=== PATIENT | female | born 1960 | race Caucasian/White ===

== ENCOUNTER → 2020-08-17 15:37 | Outpatient (BNVA) | payer OTHER, SELFPAY | PROVIDERS: PCP Pediatrics; Referring Provider Pediatrics; Visit Provider Hospitalist | DX: Z76.89 Persons encountering health services in other specified circumstances (principal) ==

== ENCOUNTER → 2021-03-19 15:47 | Outpatient (BNVA) | payer OTHER, SELFPAY | PROVIDERS: PCP Pediatrics; Visit Provider Hospitalist ==

== ENCOUNTER → 2021-09-18 15:33 | Outpatient (BNVA) | payer OTHER, SELFPAY | PROVIDERS: PCP Pediatrics; Visit Provider Hospitalist ==

== ENCOUNTER 2021-11-19 13:17 | Emergency (ER) | payer OTHER, SELFPAY ==
--- NOTE | ~2021-11-19 | CT_ITS ---
EXAMINATION: CT ABDOMEN AND PELVIS WITHOUT CONTRAST CLINICAL INFORMATION: Left flank pain. History of nephrolithiasis. COMPARISON: Renal ultrasound 06/29/[address] abdomen and pelvis 06/09/2020.. TECHNIQUE: Multidetector volumetric imaging was performed from the superior aspect of the liver through the pubic symphysis. Sagittal and coronal reformatted images were obtained on the technologist's workstation. This CT examination was performed using dose optimization techniques as appropriate, variously including the following: *Automated exposure control *Adjustment of mA and/or kV according to patient size (this includes techniques or standardized protocols for targeted exams where dose is matched to indication/reason for exam; i.e. extremities or head) *Use of iterative reconstruction technique DLP: 908 mGy-cm FINDINGS: LUNG BASES: The lung bases are clear. The heart size is normal. LIVER, GALLBLADDER, AND BILIARY TREE: The liver is enlarged in size, normal shape, and attenuation. No focal hepatic lesion or biliary ductal dilatation is present. The gallbladder is unremarkable with no evidence of radiopaque gallstones, gallbladder wall thickening, or obvious pericholecystic inflammatory changes. PANCREAS: Unremarkable. SPLEEN: Unremarkable. ADRENAL GLANDS: Unremarkable. KIDNEYS AND URETERS: The kidneys are normal in size, shape, and attenuation. Tumor radiopaque calculi in midpole and lower pole left kidney and a 3 mm calculi lower pole right kidney without caliectasis or hydronephrosis. BLADDER: The bladder is distended. GASTROINTESTINAL TRACT: There is moderate stool and gas seen throughout the colon without any significant distention. The small bowel loops are normal caliber. Appendix is not visualized. No free air or free fluid seen. ABDOMINAL WALL: No significant hernia is appreciated. LYMPH NODES: Normal. VASCULAR: Unremarkable. PELVIC VISCERA: The uterus is anteverted and appears unremarkable. There is no adnexal mass or free fluid. OSSEOUS STRUCTURES: There are degenerative disc changes and vacuum disc phenomena L4-L5 and L3-L4 disc levels. No lytic or sclerotic process seen. There is mild ventral spondylosis. CT/CT abdomen pelvis wo con IMPRESSION: Bilateral radiopaque renal calculi without caliectasis or hydronephrosis. Distended urinary bladder without any bladder wall thickening or radiopaque calculi. Mild constipation. Mild hepatomegaly Fleischner guidelines were followed.
[2021-11-19 14:11] VITALS: BP 121/64; PULSE 97; RESP 18; TEMP 36.4; O2SAT 100; BMI 36.2
[2021-11-19 14:27] LABS: MANUAL DIFF FLAG NO
[2021-11-19 14:28] LABS: Basophils Percent Auto 0.5 % (0-2); Eosinophils Absolute Auto 0.1 X10*3/uL (0.0-0.4); Eosinophils Percent Auto 0.8 % (0-4); Hematocrit 36.3 % (37.0-47.0); Hemoglobin 11.5 g/dl (12.0-16.0); Imm Gran Abs Auto 0.03 X10*3/uL (0.00-0.03); Imm Gran Pct Auto 0.3 % (0.0-0.4); Lymphocytes Absolute Auto 2.7 X10*3/uL (1.2-4.9); Lymphocytes Percent Auto 30.4 % (20-40); Mean Corpuscular HGB Conc 31.7 g/dl (31.0-35.0); Mean Corpuscular Hemoglobin 27.2 pg (27.0-33.0); Mean Corpuscular Volume 85.8 fL (80.0-98.0); Mean Platelet Volume 9.6 fL (9.4-12.3); Monocytes Absolute Auto 0.7 X10*3/uL (0.1-1.2); Monocytes Percent Auto 7.8 % (2-11); Neutrophils Absolute Auto 5.3 x10*3/uL (2.0-8.3); Neutrophils Percent Auto 60.2 % (45-73); Platelet Count 228 X10*3/uL (160-400); Red Blood Count 4.23 X10*6/uL (4.20-5.50); Red Cell Distribution Width 16.9 % (11.0-16.0); White Blood Count 8.8 X10*3/uL (4.8-10.8)
[2021-11-19 14:48] LABS: Alanine Aminotransferase 27 U/L (0-31); Albumin Level 4.2 g/dL (3.5-5.0); Alkaline Phosphatase 48 U/L (39-117); Anion Gap 11 (12-20); Aspartate Amino Transferase 29 U/L (5-31); Bilirubin Total 0.7 mg/dL (0.0-1.0); Blood Urea Nitrogen 11 mg/dL (9-16); Calcium 9.3 mg/dL (8.4-10.2); Carbon Dioxide 30 mmol/L (22-29); Chloride 102 mmol/L (96-108); Creatinine Clr Calc Pharmacy 95.3; Estimated Glomerular Filt Rate > 60; Glucose Random 113 mg/dL (60-115); Lipase 45 U/L (8-78); Potassium 4.1 mmol/L (3.3-5.1); Sodium 139 mmol/L (135-145); Total Protein 7.3 g/dL (6.5-8.0)
[2021-11-19 16:06] LABS: Appearance Urine CLEAR; Color Urine YELLOW; Glucose Urine UA >=1000 MG/DL (NEG); Leukocyte Esterase Urine NEG (NEG); Nitrite Urine NEG (NEG); PH 6.5 (5.0-8.0); Specific Gravity - Urine <= 1.005 (1.005-1.025); Urine Blood NEG (NEG); Urine Ketones NEG (NEG); Urine Protein NEG (NEG-TRACE)
[2021-11-19 17:56] LABS: RBC Urine 0 /HPF (0); WBC Urine 0 /HPF (0-4)
--- NOTE | 2021-11-19 18:23 | ED.ABDPAIN ---
HPI - Abdominal Pain General Chief Complaint: Abdominal Pain Stated Complaint: Abd pain (kidney stone?) Time Seen by Provider: 11/19/21 18:15 Source: patient Mode of arrival: ambulatory Limitations: no limitations History of Present Illness HPI narrative: patient comes to the emergency room complaining of left-sided flank pain for almost 48 hours. Patient complaining of nausea. Patient states that she ran out of her GI medication and has diarrhea. Patient states that she has had kidney stones in the past, which needed surgery. Patient denies dysuria, no hematuria. Related Data Home Medications Medication Instructions Recorded Confirmed amitriptyline 25 mg tablet 20 mg PO BEDTIME tab 08/17/20 03/19/21 clotrimazole-betamethasone 1 applic TOPICAL 08/17/20 03/19/21 %-0.05 % topical cream levothyroxine 112 mcg tablet 112 mcg PO DAILY 08/17/20 03/19/21 lisinopril 10 mg tablet 10 mg PO DAILY 08/17/20 03/19/21 metformin 850 mg tablet 850 mg PO TID 08/17/20 03/19/21 rosuvastatin 40 mg tablet 40 mg PO DAILY 08/17/20 03/19/21 albuterol sulfate 90 mcg/actuation 2 puff INHALATION Q2-4H PRN 03/19/21 03/19/21 aerosol inhaler empagliflozin 25 mg tablet 25 mg PO DAILY 03/19/21 03/19/21 flash glucose sensor #1 ea 03/19/21 03/19/21 omalizumab 150 mg/mL subcutaneous mg SUBCUT 09/18/21 syringe (Xolair) Previous Rx's Medication Instructions Recorded zolpidem 10 mg tablet 10 mg PO BEDTIME PRN 30 Days #30 02/08/21 tab budesonide 0.5 mg/2 mL suspension 0.5 mg (2 mL) INHALATION BID 30 05/20/21 for nebulization Days #120 ml roflumilast 500 mcg tablet 500 mcg PO DAILY #90 tab 09/18/21 (Daliresp) arformoterol 15 mcg/2 mL solution 2 ml PO BID #360 ml 09/24/21 for nebulization montelukast 10 mg tablet 10 mg PO DAILY #90 tab 09/24/21 ketorolac 10 mg tablet 10 mg PO TID PRN 5 Days #7 tab 11/19/21 Allergies Allergy/AdvReac Type Severity Reaction Status Date / Time morphine [MORPHINE] Allergy Intermediate RASH Unverified 09/18/21 15:53 oxycodone [Oxycodone] Allergy Intermediate ITCHING Unverified 09/18/21 15:53 Penicillins [PENICILLINS] Allergy Intermediate RASH Unverified 09/18/21 15:53 Sulfa (Sulfonamide Allergy Intermediate RASH/DIFFICULTY Unverified 09/18/21 15:53 Antibiotics) BREATHING dulaglutide [Trulicity] Allergy Unknown Unknown Verified 09/18/21 15:53 levofloxacin Allergy Unknown Unknown Unverified 09/18/21 15:53 penicillamine Allergy Unknown Unknown Verified 09/18/21 15:53 penicillin V Allergy Unknown rash Verified 09/18/21 15:53 Review of Systems Review of Systems Constitutional : No Weight loss, No Fever, No Chills, No Night Sweats, No Fatigue, No Malaise ENT/Mouth : No Hearing loss, No Ear Pain, No Nasal Congestion, No Sinus Pain, No Hoarseness, No sore throat, No Rhinorrhea, No Swallowing Difficulty Eyes: No Eye Pain, No Swelling, No Redness, No Foreign Body, No Discharge, No Vision Changes Cardiovascular : No Chest Pain, No SOB, No Dyspnea on Exertion, No Orthopnea, No Edema, No Palpitations Respiratory : No Cough, No Sputum, No Wheezing, No Smoke Exposure, No Dyspnea Gastrointestinal : No Nausea, No Vomiting, No Diarrhea, No Constipation, No abdominal Pain, No Hematochezia, No Melena Genitourinary : no irregular bleeding, No Dysuria, No Urinary Frequency, No Hematuria, No Urinary Incontinence, No Urgency, Complaining of left-sided Flank Pain, No Urinary Flow Changes, No Hesitancy Musculoskeletal : No joint pain, No Myalgias, No Joint Swelling Skin : No Skin Lesions, No rash Neuro : No Weakness, No Numbness, No Paresthesias, No Loss of Consciousness, No Dizziness, No Headache Psych : No Anxiety/Panic, No Depression, No SI/HI/AH/VH, No Social Issues, Heme/Lymph: No Bruising, No Bleeding,No Lymphadenopathy Endocrine : No Polyuria, No Polydipsia, No Temperature Intolerance Physical Exam Vital Signs: Vital Signs: Last Vital Signs Temp 97.6 F 11/19/21 14:11 Pulse 97 11/19/21 14:11 Resp 18 11/19/21 14:11 BP 121/64 11/19/21 14:11 Pulse Ox 100 11/19/21 14:11 BMI result Body Mass Index 36.2 Const: Other: Appearance: Alert. Oriented X3. No acute distress. Eyes: Pupils equal, round and reactive to light. ENT: Pharynx normal. Neck: Normal inspection. Neck supple. No lymph nodes noted. No crepitus CVS: Normal heart rate and rhythm. Pulses normal. Normal S1 and S2 Respiratory: No respiratory distress. Breath sounds normal. No Wheezing. No rales Abdomen: Soft and nontender. No rigidity. No distention. mild left lower quadrant pain back: Positive CVA tenderness left side Skin: Skin warm and dry. Normal skin color. Normal skin turgor. Extremities: No lower extremity edema. No Lacerations. No Rash Neuro: Oriented X 3. No motor deficit. No sensory deficit. Moving all extermities. No slurred speech. Course Course Course Narrative: I discussed the labs and imaging with the patient, no acute findings to patient bilateral renal calculi unlikely causing the pain. the source of patient's pain likely musculoskeletal. Patient was given 1 dose of IM Toradol. MDM - Abdominal Pain Lab Data Result diagrams: 11/19/21 14:22 11/19/21 14:22 Labs: Lab Results 11/19/21 11/19/21 11/19/21 Range/Units 14:22 14:22 15:21 WBC 8.8 (4.8-10.8) X10*3/uL RBC 4.23 (4.20-5.50) X10*6/uL Hgb 11.5 L (12.0-16.0) g/dl Hct 36.3 L (37.0-47.0) % MCV 85.8 (80.0-98.0) fL MCH 27.2 (27.0-33.0) pg MCHC 31.7 (31.0-35.0) g/dl RDW 16.9 H (11.0-16.0) % Plt Count 228 (160-400) X10*3/uL MPV 9.6 (9.4-12.3) fL Immature Gran % (Auto) 0.3 (0.0-0.4) % Neut % (Auto) 60.2 (45-73) % Lymph % (Auto) 30.4 (20-40) % [place] % (Auto) 7.8 (2-11) % Eos % (Auto) 0.8 (0-4) % Baso % (Auto) 0.5 (0-2) % Lymph # (Auto) 2.7 (1.2-4.9) X10*3/uL [place] # (Auto) 0.7 (0.1-1.2) X10*3/uL Eos # (Auto) 0.1 (0.0-0.4) X10*3/uL Baso # (Auto) 0.0 (0.0-0.2) X10*3/uL Abs Immat Gran (auto) 0.03 (0.00-0.03) X10*3/uL Absolute Neuts (auto) 5.3 (2.0-8.3) x10*3/uL Absolute Nucleated RBC 0.000 (0.0-0.012) X10*3/uL Nucleated RBC % (auto) 0.0 (0.0-0.2) /100WBC Sodium 139 (135-145) mmol/L Potassium 4.1 (3.3-5.1) mmol/L Chloride 102 (96-108) mmol/L Carbon Dioxide 30 H (22-29) mmol/L Anion Gap 11 L (12-20) BUN 11 (9-16) mg/dL Creatinine 0.74 (0.5-1.4) mg/dL Estim Creat Clear Calc 95.3 Estimated GFR > 60 POC Glucose (60-115) mg/dL Random Glucose 113 (60-115) mg/dL Calcium 9.3 (8.4-10.2) mg/dL Total Bilirubin 0.7 (0.0-1.0) mg/dL AST 29 (5-31) U/L ALT 27 (0-31) U/L Alkaline Phosphatase 48 (39-117) U/L Total Protein 7.3 (6.5-8.0) g/dL Albumin 4.2 (3.5-5.0) g/dL Lipase 45 (8-78) U/L Urine Color YELLOW Urine Appearance CLEAR Urine pH 6.5 (5.0-8.0) Ur Specific [place] <= 1.005 (1.005-1.025) Urine Protein NEG (NEG-TRACE) MG/DL Urine Glucose (UA) >=1000 H (NEG) MG/DL Urine Ketones NEG (NEG) MG/DL Urine Blood NEG (NEG) Urine Nitrite NEG (NEG) Ur Leukocyte Esterase NEG (NEG) Urine RBC 0 (0) /HPF Urine WBC 0 (0-4) /HPF Ur Squamous Epith Cells NONE /LPF Urine Bacteria NONE /LPF 11/19/21 Range/Units 19:12 WBC (4.8-10.8) X10*3/uL RBC (4.20-5.50) X10*6/uL Hgb (12.0-16.0) g/dl Hct (37.0-47.0) % MCV (80.0-98.0) fL MCH (27.0-33.0) pg MCHC (31.0-35.0) g/dl RDW (11.0-16.0) % Plt Count (160-400) X10*3/uL MPV (9.4-12.3) fL Immature Gran % (Auto) (0.0-0.4) % Neut % (Auto) (45-73) % Lymph % (Auto) (20-40) % [place] % (Auto) (2-11) % Eos % (Auto) (0-4) % Baso % (Auto) (0-2) % Lymph # (Auto) (1.2-4.9) X10*3/uL [place] # (Auto) (0.1-1.2) X10*3/uL Eos # (Auto) (0.0-0.4) X10*3/uL Baso # (Auto) (0.0-0.2) X10*3/uL Abs Immat Gran (auto) (0.00-0.03) X10*3/uL Absolute Neuts (auto) (2.0-8.3) x10*3/uL Absolute Nucleated RBC (0.0-0.012) X10*3/uL Nucleated RBC % (auto) (0.0-0.2) /100WBC Sodium (135-145) mmol/L Potassium (3.3-5.1) mmol/L Chloride (96-108) mmol/L Carbon Dioxide (22-29) mmol/L Anion Gap (12-20) BUN (9-16) mg/dL Creatinine (0.5-1.4) mg/dL Estim Creat Clear Calc Estimated GFR POC Glucose 81 (60-115) mg/dL Random Glucose (60-115) mg/dL Calcium (8.4-10.2) mg/dL Total Bilirubin (0.0-1.0) mg/dL AST (5-31) U/L ALT (0-31) U/L Alkaline Phosphatase (39-117) U/L Total Protein (6.5-8.0) g/dL Albumin (3.5-5.0) g/dL Lipase (8-78) U/L Urine Color Urine Appearance Urine pH (5.0-8.0) Ur Specific [place] (1.005-1.025) Urine Protein (NEG-TRACE) MG/DL Urine Glucose (UA) (NEG) MG/DL Urine Ketones (NEG) MG/DL Urine Blood (NEG) Urine Nitrite (NEG) Ur Leukocyte Esterase (NEG) Urine RBC (0) /HPF Urine WBC (0-4) /HPF Ur Squamous Epith Cells /LPF Urine Bacteria /LPF Imaging Data CT scan - abdomen: Radiologist's impression: FINDINGS: LUNG BASES: The lung bases are clear. The heart size is normal.? LIVER, GALLBLADDER, AND BILIARY TREE: The liver is enlarged in size, normal shape, and attenuation. No focal hepatic lesion or biliary ductal dilatation is present. The gallbladder is unremarkable with no evidence of radiopaque gallstones, gallbladder wall thickening, or obvious pericholecystic inflammatory changes.? PANCREAS: Unremarkable.? SPLEEN: Unremarkable.? ADRENAL GLANDS: Unremarkable.? KIDNEYS AND URETERS: The kidneys are normal in size, shape, and attenuation. Tumor radiopaque calculi in midpole and lower pole left kidney and a 3 mm calculi lower pole right kidney without caliectasis or hydronephrosis. ? BLADDER: The bladder is distended.? GASTROINTESTINAL TRACT: There is moderate stool and gas seen throughout the colon without any significant distention. The small bowel loops are normal caliber. Appendix is not visualized. No free air or free fluid seen.? ABDOMINAL WALL: No significant hernia is appreciated.? LYMPH NODES: Normal. VASCULAR: Unremarkable. PELVIC VISCERA: The uterus is anteverted and appears unremarkable. There is no adnexal mass or free fluid.? OSSEOUS STRUCTURES: There are degenerative disc changes and vacuum disc phenomena L4-L5 and L3-L4 disc levels. No lytic or sclerotic process seen. There is mild ventral spondylosis.? CT/CT abdomen pelvis wo con IMPRESSION: Bilateral radiopaque renal calculi without caliectasis or hydronephrosis. ? Distended urinary bladder without any bladder wall thickening or radiopaque calculi. ? Mild constipation. ? Mild hepatomegaly ? Fleischner guidelines were followed. Discharge Plan Discharge Clinical Impression: Acute left flank pain Patient Disposition: Home, Self-Care Instructions: Flank Pain (ED) Additional Instructions: Please follow-up with your primary care physician tomorrow. If you have any worsening or new symptoms, please return to the emergency room or call 911 Prescriptions: New ketorolac 10 mg tablet 10 mg PO TID PRN (Reason: pain) 5 Days Qty: 7 RF: 0 No Action zolpidem 10 mg tablet 10 mg PO BEDTIME PRN (Reason: sleep) 30 Days Qty: 30 RF: 3 budesonide 0.5 mg/2 mL suspension for nebulization 0.5 mg inhalation BID 30 Days Qty: 120 RF: 8 arformoterol 15 mcg/2 mL solution for nebulization 2 ml PO BID Qty: 360 RF: 1 montelukast 10 mg tablet 10 mg PO DAILY Qty: 90 RF: 1 Xolair 150 mg/mL syringe subcut RF: 0 Daliresp 500 mcg tablet 500 mcg PO DAILY Qty: 90 RF: 3 amitriptyline 25 mg tablet 20 mg PO BEDTIME RF: 0 lisinopril 10 mg tablet 10 mg PO DAILY RF: 0 rosuvastatin 40 mg tablet 40 mg PO DAILY RF: 0 levothyroxine 112 mcg tablet 112 mcg PO DAILY RF: 0 metformin 850 mg tablet 850 mg PO TID RF: 0 clotrimazole-betamethasone 1-0.05 % cream topical RF: 0 Jardiance 25 mg tablet 25 mg PO DAILY RF: 0 albuterol sulfate 90 mcg/actuation HFA aerosol inhaler 2 puff inhalation Q2-4H PRNRF: 0 (DME) FreeStyle Sharla 2 Sensor Kit See Rx Instructions kit .ROUTE .MEDSUPPLY Qty: 1 RF: 0 PMFSH Past Medical History Medical History Asthma Asthma-COPD overlap syndrome Insomnia BERENICE on CPAP Family History Family History (Updated 08/17/20 @ 16:04 by Carlin Oliva MD) Other Diabetes Social History Social History (Updated 09/18/21 @ 15:55 by Cara Walter Vannessa) Patient Tobacco Use Status: Never used Tobacco Advance Directives: No Advance Directives Information Provided: No
[2021-11-19 19:17] LABS: Glucose, Whole Blood 81 mg/dL (60-115)
--- NOTE | 2021-11-19 19:17 | PC.NURSE ---
pt requested poc to be obtained as she felt her blood sugar was low, poc was obtained, pt aware she has to wait until she has results of ct scan to take po
[2021-11-19 20:14] VITALS: BP 138/75; PULSE 90; RESP 18; TEMP 36.9; O2SAT 98
[2021-11-19] MEDS: Ketorolac Tromethamine 60 MG/2 ML VIAL IM (20:18)
== END 2021-11-19 20:24 | disposition home or self-care (01) ==
PROVIDERS: Emergency Provider Emergency Medicine; PCP Obstetrics & Gynecology
DX: R10.9 Unspecified abdominal pain (principal); N20.0 Calculus of kidney; Z79.02 Long term (current) use of antithrombotics/antiplatelets; Z87.442 Personal history of urinary calculi
CPT/HCPCS: 36415; 74176; 80053; 81001; 81003; 82947; 83690; 85025; 96372; 99283; 99284; J1885

== ENCOUNTER → 2022-03-18 14:54 | Outpatient (BNVA) | payer OTHER, SELFPAY | PROVIDERS: PCP Pediatrics; Visit Provider Hospitalist | DX: G47.33 Obstructive sleep apnea (adult) (pediatric) (principal) ==

== ENCOUNTER 2022-10-02 07:38 | Day surgery (SDC) | payer OTHER, SELFPAY ==
[2022-09-26 14:50] VITALS: BMI 37.8
--- NOTE | 2022-10-01 11:03 | P.CONAN_ITS ---
Documented by User: Krystle Estrada NP 10/01/22 11:10 HPI - Anesthesia Eval Consult details Narrative: 62yo F for Left Lithotripsy ESW No previous ESWL on record Eliquis for aflutter PMFSH Active Problems Active Problems: All Active Problems (Updated 09/26/22 @ 14:41 by Era Lau, RN) Kidney stone on left side (Acute) Nephrolithiasis (Acute) Asthma-COPD overlap syndrome (Acute) Insomnia (Acute) BERENICE on CPAP (Acute) Asthma (Acute) Past Medical History Medical History (Updated 09/26/22 @ 14:41 by Era Lau, RN) Arthritis Asthma Asthma-COPD overlap syndrome Atrial flutter Diabetes GERD (gastroesophageal reflux disease) Rafa's thyroiditis Insomnia On anticoagulant therapy BERENICE on CPAP Polycystic ovarian syndrome PONV (postoperative nausea and vomiting) Family History Family History (Updated 08/17/20 @ 16:04 by Carlin Oliva MD) Other Diabetes Surgical History Surgical History (Updated 09/26/22 @ 14:41 by Era Lau, RN) History of Achilles tendon repair History of cystoscopy History of detached retina repair History of lithotripsy History of umbilical hernia repair Hx of arthroscopy of knee Social History Social History (Updated 09/18/21 @ 15:55 by FLAKO Castellon) Are you a primary vocational childcare teacher to a significant other at home: No Do you presently have visiting nurse or other home services: No Patient Tobacco Use Status: Never used Tobacco Use of substances other than those prescribed or required for medical reasons: No Have you been hit, kicked, punched, or otherwise hurt by someone within the past year? If so, by whom?: No Are you DNR?: No Advance Directives: No Advance Directives Information Provided: Yes Advance Directives on File: No Meds Allergies Allergy/AdvReac Type Severity Reaction Status Date / Time dulaglutide [Trulicity] Allergy Severe Abdominal Verified 10/02/22 08:34 Pain levofloxacin Allergy Severe Nausea and Verified 10/02/22 08:34 Vomiting penicillamine Allergy Severe Rash Verified 10/02/22 08:34 morphine [MORPHINE] Allergy Intermediate RASH Verified 09/26/22 14:31 oxycodone [Oxycodone] Allergy Intermediate ITCHING Verified 09/26/22 14:31 Penicillins [PENICILLINS] Allergy Intermediate RASH Verified 09/26/22 14:31 Sulfa (Sulfonamide Allergy Intermediate RASH/DIFFICULTY Verified 09/26/22 14:31 Antibiotics) BREATHING Home Medications Medication Instructions Recorded Confirmed Last Taken Type amitriptyline 25 mg tablet 20 mg PO BEDTIME 08/17/20 09/26/22 Unknown History levothyroxine 112 mcg tablet 112 mcg PO DAILY 08/17/20 09/26/22 Unknown History lisinopril 10 mg tablet 10 mg PO DAILY 08/17/20 09/26/22 10/02/22 History rosuvastatin 40 mg tablet 40 mg PO DAILY 08/17/20 09/26/22 Unknown History albuterol sulfate 90 mcg/actuation 2 puff inhalation Q2-4H PRN 03/19/21 09/26/22 Unknown History aerosol inhaler Wheezing empagliflozin 25 mg tablet 25 mg PO DAILY 03/19/21 09/26/22 Unknown History flash glucose sensor #1 ea 03/19/21 08/28/22 Unknown History omalizumab 150 mg/mL subcutaneous mg subcut 09/18/21 08/28/22 Unknown History syringe (Xolair) apixaban 5 mg tablet (Eliquis) 5 mg PO BID 03/18/22 09/26/22 09/27/22 History ascorbate calcium (vitamin C) 500 500 mg PO DAILY 03/18/22 09/26/22 Unknown History mg tablet azelastine-fluticasone 137 mcg-50 1 spray intranasal BID 03/18/22 09/26/22 Unknown History mcg/spray nasal spray cetirizine 10 mg tablet (Zyrtec) 10 mg PO DAILY PRN Sleep 03/18/22 09/26/22 Unknown History cholecalciferol (vitamin D3) 125 125 mcg PO DAILY 03/18/22 09/26/22 Unknown History mcg (5,000 unit) capsule diphenoxylate-atropine 2.5 1 tab PO Q6-8H PRN Diarrhea 03/18/22 09/26/22 Unknown History mg-0.025 mg tablet epinephrine 0.3 mg/0.3 mL IM PRN Allergic Reaction 03/18/22 08/28/22 Unknown History injection, auto-injector insulin lispro 100 unit/mL subcut TIDAC PRN sliding scale 03/18/22 08/28/22 Unknown History subcutaneous pen (Humalog KwikPen (U-100) Insulin) levalbuterol HCl 0.63 mg/3 mL mg inhalation 03/18/22 08/28/22 Unknown History solution for nebulization metformin 1,000 mg tablet 1,000 mg PO BID 03/18/22 09/26/22 Unknown History omeprazole 20 mg capsule,delayed 20 mg PO DAILY 03/18/22 09/26/22 Unknown History release tiotropium bromide 1.25 2 puff inhalation BEDTIME 03/18/22 09/26/22 Unknown History mcg/actuation mist for inhalation (Spiriva Respimat) aspirin 81 mg chewable tablet 81 mg PO DAILY 08/28/22 09/26/22 09/25/22 History diltiazem HCl 240 mg 240 mg PO DAILY 08/28/22 09/26/22 10/02/22 History capsule,extended release 24 hr, controlled (DILT-XR) Exam Exam Date and Time: October 01, 2022 1103 Height,Weight and Vital Signs: Height 5 ft 5 in Weight 102.965 kg Narrative Narrative: Stress Echo 04/2022 Resting: Grossly nml biV size and systolic function. Nml LV regional wall motion with an EF of 60-65% Stress: Nml augmented response to exercise with no regional wall motion abnormalities observed. LV cavity does no dilate with stress Nml stress echo Assessment and Plan Assessment Anesthesia Assessment: Chart Reviewed Documented by User: Ellen Morel MD 10/02/22 10:56 HPI - Anesthesia Eval Consult details Narrative: 62yo F for Left Lithotripsy ESW No previous ESWL on record Eliquis for aflutter- last dose 09/27/22 PMFSH Active Problems Active Problems: All Active Problems (Updated 09/26/22 @ 14:41 by Era Lau RN) Kidney stone on left side (Acute) Nephrolithiasis (Acute) Asthma-COPD overlap syndrome (Acute) Insomnia (Acute) BERENICE on CPAP (Acute) Asthma (Acute)- uses nebulizer daily. Asthma under control with neb treatment Increased BMI Past Medical History Medical History (Updated 09/26/22 @ 14:41 by Era Lau, RN) Arthritis Asthma Asthma-COPD overlap syndrome Atrial flutter Diabetes GERD (gastroesophageal reflux disease) Rafa's thyroiditis Insomnia On anticoagulant therapy BERENICE on CPAP Polycystic ovarian syndrome PONV (postoperative nausea and vomiting) Family History Family History (Updated 08/17/20 @ 16:04 by Carlin Oliva MD) Other Diabetes Family history of problems with anesthesia: No Surgical History Surgical History (Updated 09/26/22 @ 14:41 by Era Lau, RN) History of Achilles tendon repair History of cystoscopy History of detached retina repair History of lithotripsy History of umbilical hernia repair Hx of arthroscopy of knee History of Problems with Anesthesia: No Social History Social History (Updated 09/18/21 @ 15:55 by FLAKO Castellon) Are you a primary vocational childcare teacher to a significant other at home: No Do you presently have visiting nurse or other home services: No Patient Tobacco Use Status: Never used Tobacco Use of substances other than those prescribed or required for medical reasons: No Have you been hit, kicked, punched, or otherwise hurt by someone within the past year? If so, by whom?: No Are you DNR?: No Advance Directives: No Advance Directives Information Provided: Yes Advance Directives on File: No Meds Allergies Allergy/AdvReac Type Severity Reaction Status Date / Time dulaglutide [Trulicity] Allergy Severe Abdominal Verified 10/02/22 08:34 Pain levofloxacin Allergy Severe Nausea and Verified 10/02/22 08:34 Vomiting penicillamine Allergy Severe Rash Verified 10/02/22 08:34 morphine [MORPHINE] Allergy Intermediate RASH Verified 09/26/22 14:31 oxycodone [Oxycodone] Allergy Intermediate ITCHING Verified 09/26/22 14:31 Penicillins [PENICILLINS] Allergy Intermediate RASH Verified 09/26/22 14:31 Sulfa (Sulfonamide Allergy Intermediate RASH/DIFFICULTY Verified 09/26/22 14:31 Antibiotics) BREATHING Home Medications Medication Instructions Recorded Confirmed Last Taken Type amitriptyline 25 mg tablet 20 mg PO BEDTIME 08/17/20 09/26/22 Unknown History levothyroxine 112 mcg tablet 112 mcg PO DAILY 08/17/20 09/26/22 Unknown History lisinopril 10 mg tablet 10 mg PO DAILY 08/17/20 09/26/22 10/02/22 History rosuvastatin 40 mg tablet 40 mg PO DAILY 08/17/20 09/26/22 Unknown History albuterol sulfate 90 mcg/actuation 2 puff inhalation Q2-4H PRN 03/19/21 09/26/22 Unknown History aerosol inhaler Wheezing empagliflozin 25 mg tablet 25 mg PO DAILY 03/19/21 09/26/22 Unknown History flash glucose sensor #1 ea 03/19/21 08/28/22 Unknown History omalizumab 150 mg/mL subcutaneous mg subcut 09/18/21 08/28/22 Unknown History syringe (Xolair) apixaban 5 mg tablet (Eliquis) 5 mg PO BID 03/18/22 09/26/22 09/27/22 History ascorbate calcium (vitamin C) 500 500 mg PO DAILY 03/18/22 09/26/22 Unknown History mg tablet azelastine-fluticasone 137 mcg-50 1 spray intranasal BID 03/18/22 09/26/22 Unknown History mcg/spray nasal spray cetirizine 10 mg tablet (Zyrtec) 10 mg PO DAILY PRN Sleep 03/18/22 09/26/22 Unknown History cholecalciferol (vitamin D3) 125 125 mcg PO DAILY 03/18/22 09/26/22 Unknown History mcg (5,000 unit) capsule diphenoxylate-atropine 2.5 1 tab PO Q6-8H PRN Diarrhea 03/18/22 09/26/22 Unknown History mg-0.025 mg tablet epinephrine 0.3 mg/0.3 mL IM PRN Allergic Reaction 03/18/22 08/28/22 Unknown History injection, auto-injector insulin lispro 100 unit/mL subcut TIDAC PRN sliding scale 03/18/22 08/28/22 Unknown History subcutaneous pen (Humalog KwikPen (U-100) Insulin) levalbuterol HCl 0.63 mg/3 mL mg inhalation 03/18/22 08/28/22 Unknown History solution for nebulization metformin 1,000 mg tablet 1,000 mg PO BID 03/18/22 09/26/22 Unknown History omeprazole 20 mg capsule,delayed 20 mg PO DAILY 03/18/22 09/26/22 Unknown History release tiotropium bromide 1.25 2 puff inhalation BEDTIME 03/18/22 09/26/22 Unknown History mcg/actuation mist for inhalation (Spiriva Respimat) aspirin 81 mg chewable tablet 81 mg PO DAILY 08/28/22 09/26/22 09/25/22 History diltiazem HCl 240 mg 240 mg PO DAILY 08/28/22 09/26/22 10/02/22 History capsule,extended release 24 hr, controlled (DILT-XR) Exam Height,Weight and Vital Signs: Height 5 ft 5 in Weight 102.965 kg Vital Signs Temp Pulse Resp BP Pulse Ox O2 Del Method 10/02/22 08:40 97.3 F 102 H 16 119/55 L 97 Room Air Airway Mallampati Class: III TM Dist: >3cm Neck ROM: Full Loose/Missing/Broken Teeth: No (No broken or loose) Heart: RRR Lungs: CTAB Assessment and Plan Assessment Anesthesia Assessment: Anesthesia Plan Discussed Final Anesthetic Review Family History of Problems with Anesthesia: No History of Problems with Anesthesia: No NPO: Yes ASA Class: III Final Preanesthetic Review: No Changes in Pt Med Stat, Meds/Allgs Chart Reviewed, Consent Obtained/Reviewed and Anes Risks/Benef Reviewed Patient Risk: Intermediate Procedure Risk: Low Assessment/Block/Sedation in SS: Assess/Block/Sedation-SS Anesthetic Plan Anesthetic Plan: GA and MAC: Disposition: Standard PACU
[2022-10-02] VITALS (8 sets, daily range): BP systolic 103–119; BP diastolic 50–57; PULSE 67–102; RESP 16–18; TEMP 36.2–36.3; O2SAT 96–99
--- NOTE | ~2022-10-02 | XR_ITS ---
EXAMINATION: XR ABDOMEN KUB CLINICAL INDICATION: Pre-ESWL COMPARISON: 11/19/2021 TECHNIQUE: AP view of the abdomen. FINDINGS: Faint calcifications are seen overlying the lower pole of the left kidney measuring up to 0.3 cm. 3 separate calcifications are noted. No additional definite renal or ureteral calculi. Normal bowel gas pattern. Degenerative changes throughout the spine. Degenerative change of both hips. XR/XR KUB IMPRESSION: Faint calcifications are seen overlying the lower pole of the left kidney. This likely corresponds to calculi seen on previous CT.
[2022-10-02] MEDS: Lactated Ringers 1,000 ML 100 ML IVCONT (08:58)
[2022-10-02 09:06] LABS: Glucose, Whole Blood 139 mg/dL (60-115)
--- NOTE | 2022-10-02 09:28 | MHC.SHP ---
Pre-Procedural Eval Section A Date of Service: 10/02/22 The patient is an INPATIENT: No Section B Chief Complaint: Calculus of kidney Allergies: Allergies Allergy/AdvReac Type Severity Reaction Status Date / Time dulaglutide [Trulicity] Allergy Severe Abdominal Verified 10/02/22 08:34 Pain levofloxacin Allergy Severe Nausea and Verified 10/02/22 08:34 Vomiting penicillamine Allergy Severe Rash Verified 10/02/22 08:34 morphine [MORPHINE] Allergy Intermediate RASH Verified 09/26/22 14:31 oxycodone [Oxycodone] Allergy Intermediate ITCHING Verified 09/26/22 14:31 Penicillins [PENICILLINS] Allergy Intermediate RASH Verified 09/26/22 14:31 Sulfa (Sulfonamide Allergy Intermediate RASH/DIFFICULTY Verified 09/26/22 14:31 Antibiotics) BREATHING Plan Diagnosis/Plan: Unchanged I have reviewed the history and physical and performed a pertinent physical examination on my patient. No changes have occurred unless specified. Left ESWL.Discussed risks to include but not limited to, blood in the urine, bruising to the skin, kidney hematoma, possible need for another procedure if a stone fragment obstructs the ureter while passing, possible need to repeat procedure if stone is not completely fragmented.
--- NOTE | 2022-10-02 10:58 | W.PM.OPN ---
Operative Note Operative Note Date of Service: 10/02/22 Narrative: PreOperative Diagnosis:? ? Left Renal stone Post Operative Diagnosis:?Left? Renal stone Procedure:?Left? ESWL Surgeon:?Dr John Guidry Anesthesia:? General Indications for procedure: The patient understands ESWL may be a staged procedure and subsequent intervention may be required based on imaging after ESWL.? They also understand? there is a risk of bleeding to the kidney, infection, damage to adjacent organs, and stone migration following the procedure. - Imaging Renal U/S 4 mm stone stone visualized in the mid/lower pole and 3 mm stone lower pole. - Fluoscopy and KUB, radiopague stone not visualized Procedure: After informed consent was verified the patient was brought to the operating room and placed in a supine position.? Anesthesia was performed per protocol. Safety pause time-out was performed. Imaging with U/S as above was displayed in the room and laterality confirmed. ESWL was performed.?The stone was visualized on renal ultrasound.?The 4 mm stone in the mid/lower pole was treated during this therapy. Shockwave lithotripsy was performed, the first 300 shocks at 60 hertz.? A pause for 3 minutes.? A total of 2000 shocks to a maximum of power of 20 with a maximum rate of 120 hertz.? Good fragmentation of the stone was appreciated. The patient tolerated the procedure well and was transferred to the recovery area upon completion. There was no evidence for flank discoloration. Complications: None
[2022-10-02] MEDS: Acetaminophen 325 MG TABLET 650 MG PO (11:38)
== END 2022-10-02 12:50 ==
LOC: HO.SSS 07:38
PROVIDERS: PCP Internal Medicine; Visit Provider Urology
PROC: (CPT 50590; principal; 2022-10-02 09:20)
DX: N20.0 Calculus of kidney (principal); E11.9 Type 2 diabetes mellitus without complications; I10 Essential (primary) hypertension; I48.92 Unspecified atrial flutter; J45.909 Unspecified asthma, uncomplicated; G47.33 Obstructive sleep apnea (adult) (pediatric); Z79.01 Long term (current) use of anticoagulants; Z79.4 Long term (current) use of insulin; Z79.82 Long term (current) use of aspirin; Z79.899 Other long term (current) drug therapy; Z99.89 Dependence on other enabling machines and devices; Z88.0 Allergy status to penicillin; Z88.2 Allergy status to sulfonamides; Z88.5 Allergy status to narcotic agent; Z88.8 Allergy status to other drugs, medicaments and biological substances
CPT/HCPCS: 50590; 74018; 82947; J0690; J2405

== ENCOUNTER 2022-11-05 16:06 | Outpatient (REF) | payer OTHER, SELFPAY ==
--- NOTE | ~2022-11-05 | US_ITS ---
EXAMINATION: US RETROPERITONEAL LIMITED (RENAL ONLY) CLINICAL INFORMATION: Calculus kidney. COMPARISON: X-ray abdomen KUB 10/02/2022 and 06/14/2020. CT abdomen and pelvis 11/19/2021. Renal ultrasound 06/29/2020 and 05/18/2020. TECHNIQUE: Real-time imaging of the kidneys. FINDINGS: RIGHT KIDNEY: 13.2 x 4.9 x 5.4 cm (SAG x AP x TRV). The kidney is normal in size, contour, and echogenicity. Renal cortical thickness is normal. No focal parenchymal lesions or hydronephrosis. There is slight pelvic fullness is noted nonspecific. Low pole 5 mm calculus nonobstructing LEFT KIDNEY: 12.0 x 6.7 x 7.0 cm (SAG x AP x TRV). The kidney is normal in size, contour, and echogenicity. Renal cortical thickness is normal. No focal parenchymal lesions or hydronephrosis. Numerous stones largest measuring up to 16 mm clustered centrally. US/US renal BI IMPRESSION: Bilateral nonobstructing renal calculi.
== END 2022-11-05 16:07 | disposition home or self-care (01) ==
LOC: HO.US 16:06
PROVIDERS: Visit Provider Urology
DX: N20.0 Calculus of kidney (principal)
CPT/HCPCS: 76775

== ENCOUNTER → 2022-11-08 14:37 | Outpatient (BNVA) | payer OTHER, SELFPAY | PROVIDERS: PCP Internal Medicine; Visit Provider Urology | DX: N20.0 Calculus of kidney (principal) ==

== ENCOUNTER 2023-01-20 15:48 | Outpatient (REF) | payer OTHER, SELFPAY ==
--- NOTE | ~2023-01-20 | US_ITS ---
EXAMINATION: US RETROPERITONEAL LIMITED (RENAL ONLY) CLINICAL INFORMATION: Calculus of kidney. COMPARISON: Renal ultrasound 11/05/2022 and 06/29/2020. X-ray abdomen KUB 10/02/2022. CT abdomen and pelvis 11/19/2021. TECHNIQUE: Real-time imaging of the kidneys. FINDINGS: RIGHT KIDNEY: 12.7 x 4.8 x 5.9 cm (SAG x AP x TRV). The kidney is normal in size, contour, and echogenicity. Renal cortical thickness is normal. No focal parenchymal lesions or hydronephrosis. A lower pole nonobstructing calculus measuring 5 x 7 x 5 mm is present similar to the single calculus seen on the prior CT. LEFT KIDNEY: 10.4 x 6.8 x 6.0 cm (SAG x AP x TRV). The kidney is normal in size, contour, and echogenicity. Renal cortical thickness is normal. No focal parenchymal lesions or hydronephrosis. Multiple nonobstructing renal calculi are seen as was also seen at the time of the prior CT. The largest is at the lower pole measuring 12 x 8 x 9 mm which probably represents a conglomerate of smaller stones. US/US renal BI IMPRESSION: Bilateral nonobstructing renal calculi.
== END 2023-01-20 15:49 | disposition home or self-care (01) ==
LOC: HO.US 15:48
PROVIDERS: PCP Internal Medicine; Visit Provider Urology
DX: N20.0 Calculus of kidney (principal)
CPT/HCPCS: 76775

== ENCOUNTER → 2023-02-12 15:33 | Outpatient (BNVA) | payer OTHER, SELFPAY | PROVIDERS: PCP Internal Medicine; Visit Provider Urology | DX: Z13.89 Encounter for screening for other disorder (principal) ==

== ENCOUNTER 2023-03-18 15:01 | Outpatient (REF) | payer OTHER, SELFPAY ==
[2023-03-18 15:59] LABS: MANUAL DIFF FLAG NO
[2023-03-18 17:01] LABS: Basophils Percent Auto 0.3 % (0-2); Eosinophils Absolute Auto 0.1 X10*3/uL (0.0-0.4); Eosinophils Percent Auto 1.3 % (0-4); Hematocrit 34.3 % (37.0-47.0); Hemoglobin 10.1 g/dl (12.0-16.0); Imm Gran Abs Auto 0.05 X10*3/uL (0.00-0.03); Imm Gran Pct Auto 0.5 % (0.0-0.4); Lymphocytes Percent Auto 31.5 % (20-40); Mean Corpuscular HGB Conc 29.4 g/dl (31.0-35.0); Mean Corpuscular Hemoglobin 23.3 pg (27.0-33.0); Mean Platelet Volume 9.5 fL (9.4-12.3); Monocytes Absolute Auto 0.6 X10*3/uL (0.1-1.2); Monocytes Percent Auto 6.3 % (2-11); Neutrophils Absolute Auto 5.7 x10*3/uL (2.0-8.3); Neutrophils Percent Auto 60.1 % (45-73); Platelet Count 316 X10*3/uL (160-400); Red Blood Count 4.34 X10*6/uL (4.20-5.50); Red Cell Distribution Width 18.3 % (11.0-16.0); White Blood Count 9.5 X10*3/uL (4.8-10.8)
[2023-03-18 17:19] LABS: Alanine Aminotransferase 24 U/L (0-31); Albumin Level 4.3 g/dL (3.5-5.0); Alkaline Phosphatase 54 U/L (39-117); Anion Gap 13 (12-20); Aspartate Amino Transferase 24 U/L (5-31); Bilirubin Direct 0.1 mg/dL (0.0-0.5); Bilirubin Total 0.4 mg/dL (0.0-1.0); Blood Urea Nitrogen 16 mg/dL (9-16); Calcium 9.8 mg/dL (8.4-10.2); Carbon Dioxide 25 mmol/L (22-29); Chloride 105 mmol/L (96-108); Estimated Glomerular Filt Rate > 60; Glucose Random 187 mg/dL (60-115); Magnesium 1.8 mg/dL (1.6-2.6); Phosphorus 4.1 mg/dL (2.7-4.5); Potassium 4.3 mmol/L (3.3-5.1); Sodium 139 mmol/L (135-145); Total Protein 7.3 g/dL (6.5-8.0)
[2023-03-18 18:12] LABS: Erythrocyte Sedimentation Rate 18 MM/HR (0-20)
[2023-03-21 22:58] LABS: Immunoglobulin E 213 kU/L (<OR=114)
== END 2023-03-18 15:02 | disposition home or self-care (01) ==
LOC: HO.LAB 15:01
PROVIDERS: PCP Internal Medicine; Visit Provider Hospitalist
DX: G47.33 Obstructive sleep apnea (adult) (pediatric) (principal); J44.9 Chronic obstructive pulmonary disease, unspecified; F51.01 Primary insomnia
CPT/HCPCS: 36415; 80048; 80076; 82785; 83735; 84100; 85025; 85652

== ENCOUNTER → 2023-04-02 09:28 | Day surgery (SDC) | payer OTHER, SELFPAY ==
[2023-04-01 08:41] VITALS: BMI 38.3
--- NOTE | 2023-04-01 11:05 | HO.ANESPROP2 ---
HPI - Anesthesia Eval Consult details Narrative: CX'd DOS d/t cont. Eliquis 63yo F for Left Lithotripsy ESW s/p ESWL 09/2022 with GA-LMA 4 Eliquis for aflutter. Stable at 01/2023 cardiology office eval. Suggested changing schedule of htn meds to prevent dizziness, but may be related to vertigo. PMFSH Active Problems Active Problems: All Active Problems (Updated 03/18/23 @ 22:04 by Carlin Oliva MD) Kidney stone on left side (Acute) Nephrolithiasis (Acute) Bilateral kidney stones (Acute) Bronchitis (Acute) Asthma-COPD overlap syndrome (Acute) Insomnia (Acute) BERENICE on CPAP (Acute) Asthma (Acute) Past Medical History Medical History (Updated 03/18/23 @ 22:04 by Carlin Oliva MD) Arthritis Asthma Asthma-COPD overlap syndrome Atrial flutter Diabetes GERD (gastroesophageal reflux disease) Rafa's thyroiditis Insomnia On anticoagulant therapy BERENICE on CPAP Polycystic ovarian syndrome PONV (postoperative nausea and vomiting) Family History Family History Other Diabetes Family history of problems with anesthesia: No Surgical History Surgical History (Updated 03/31/23 @ 15:38 by Brandie Black RN) History of Achilles tendon repair History of cystoscopy History of detached retina repair History of lithotripsy History of umbilical hernia repair Hx of arthroscopy of knee History of Problems with Anesthesia: No Social History Social History Are you a primary out of school hours care worker to a significant other at home: No Do you presently have visiting nurse or other home services: No Patient Tobacco Use Status: Never used Tobacco Meds Allergies Allergy/AdvReac Type Severity Reaction Status Date / Time dulaglutide [Trulicity] Allergy Severe Abdominal Verified 03/18/23 15:09 Pain levofloxacin Allergy Severe Nausea and Verified 03/18/23 15:09 Vomiting penicillamine Allergy Severe Rash Verified 03/18/23 15:09 morphine [MORPHINE] Allergy Intermediate RASH Verified 03/18/23 15:09 oxycodone [Oxycodone] Allergy Intermediate ITCHING Verified 03/18/23 15:09 Penicillins [PENICILLINS] Allergy Intermediate RASH Verified 03/18/23 15:09 Sulfa (Sulfonamide Allergy Intermediate RASH/DIFFICULTY Verified 03/18/23 15:09 Antibiotics) BREATHING Home Medications Medication Instructions Recorded Confirmed Last Taken Type amitriptyline 25 mg tablet 20 mg PO BEDTIME 08/17/20 04/02/23 04/01/23 History levothyroxine 112 mcg tablet 112 mcg PO DAILY 08/17/20 04/01/23 04/02/23 History lisinopril 10 mg tablet 10 mg PO DAILY 08/17/20 04/01/23 10/02/22 History rosuvastatin 40 mg tablet 40 mg PO DAILY 08/17/20 04/01/23 04/01/23 History albuterol sulfate 90 mcg/actuation 2 puff inhalation Q2-4H PRN 03/19/21 04/01/23 03/27/23 History aerosol inhaler Wheezing flash glucose sensor #1 ea 03/19/21 08/28/22 Unknown History omalizumab 150 mg/mL subcutaneous mg subcut 09/18/21 08/28/22 03/19/23 History syringe (Xolair) apixaban 5 mg tablet (Eliquis) 5 mg PO BID 03/18/22 04/02/23 03/30/23 History cholecalciferol (vitamin D3) 125 125 mcg PO DAILY 03/18/22 04/01/23 04/01/23 History mcg (5,000 unit) capsule diphenoxylate-atropine 2.5 1 tab PO Q6-8H PRN Diarrhea 03/18/22 04/01/23 04/02/23 History mg-0.025 mg tablet epinephrine 0.3 mg/0.3 mL 0.3 mg IM ONCE 03/18/22 04/01/23 Unknown History injection, auto-injector insulin lispro 100 unit/mL See Protocol subcut TIDAC PRN 03/18/22 04/01/23 04/01/23 History subcutaneous pen (Humalog KwikPen sliding scale (U-100) Insulin) metformin 1,000 mg tablet 1,000 mg PO BID 03/18/22 04/01/23 04/01/23 History omeprazole 20 mg capsule,delayed 20 mg PO DAILY 03/18/22 04/01/23 04/01/23 History release aspirin 81 mg chewable tablet 81 mg PO DAILY 08/28/22 04/02/2303/27/23 History diltiazem HCl 240 mg 240 mg PO DAILY 08/28/22 04/01/23 04/02/23 History capsule,extended release 24 hr, controlled (DILT-XR) diltiazem HCl 30 mg tablet 30 mg PO DIRECTED 11/08/22 04/01/23 01/21/23 History omalizumab 75 mg/0.5 mL mg subcut 11/08/22 03/19/23 History subcutaneous syringe (Xolair) pen needle, diabetic 31 gauge x #50 ea 11/08/22 Unknown History 3/16 (BD Ultra-Fine Mini Pen Needle) CPAP (CPAP Machine/Device) 03/18/23 Unknown History cetirizine 10 mg tablet (Zyrtec) 10 mg PO DAILY Sleep 03/18/23 04/02/23 04/02/23 History sitagliptin phosphate 25 mg tablet 25 mg PO DAILY 03/18/23 04/01/23 04/01/23 History (Ramya) Exam Exam Date and Time: April 01, 2023 1105 Height,Weight and Vital Signs: Height 5 ft 5 in Weight 104.326 kg Pertinent Lab Results Pertinent Lab Results: Laboratory Tests 03/18/23 03/18/23 15:57 15:57 WBC 9.5 Hgb 10.1 L Hct 34.3 L Plt Count 316 D Sodium 139 Potassium 4.3 Chloride 105 Carbon Dioxide 25 BUN 16 Creatinine 0.87 Assessment and Plan Assessment Anesthesia Assessment: Chart Reviewed Final Anesthetic Review Family History of Problems with Anesthesia: No History of Problems with Anesthesia: No
--- NOTE | ~2023-04-02 | CT_ITS ---
EXAMINATION: CT ABDOMEN AND PELVIS WITHOUT CONTRAST CLINICAL INFORMATION: Kidney stones COMPARISON: Previous KUB from earlier the same day, renal ultrasound most recent December [address] of the abdomen and pelvis most recent October 2021 TECHNIQUE: Multidetector volumetric imaging was performed from the superior aspect of the liver through the pubic symphysis. Sagittal and coronal reformatted images were obtained on the technologist's workstation. This CT examination was performed using dose optimization techniques as appropriate, variously including the following: *Automated exposure control *Adjustment of mA and/or kV according to patient size (this includes techniques or standardized protocols for targeted exams where dose is matched to indication/reason for exam; i.e. extremities or head) *Use of iterative reconstruction technique DLP: 746 mGy-cm FINDINGS: LUNG BASES: The visualized lung bases are unremarkable. LIVER, GALLBLADDER, AND BILIARY TREE: The liver is enlarged right lobe measuring 23 cm in length. The contour of the liver is slightly irregular questionable for mild cirrhotic change. No focal liver lesion. The gallbladder is normal. There is no biliary duct dilatation. PANCREAS: Unremarkable. SPLEEN: Unremarkable. ADRENAL GLANDS: Unremarkable. KIDNEYS AND URETERS: There are small bilateral renal stones. There is a 2 mm stone in the lower pole of the right kidney. There is a 1 to 2 mm stone in the upper pole of the left kidney. There are 2 small 1 to 2 mm stones in the lower pole of the left kidney. No hydronephrosis, ureteral dilatation or ureteral stone. BLADDER: Unremarkable. GASTROINTESTINAL TRACT: There is mild diverticulosis of the colon. The small and large bowel are otherwise unremarkable. The appendix is unremarkable. ABDOMINAL WALL: No significant hernia is appreciated. LYMPH NODES: Normal. VASCULAR: Unremarkable. PELVIC VISCERA: Unremarkable. OSSEOUS STRUCTURES: Degenerative changes of the spine and hip joints. Degenerative changes at the sacroiliac joints. CT/CT abdomen pelvis wo IV con IMPRESSION: Small bilateral renal stones. No hydronephrosis, ureteral dilatation or ureteral stone. Enlarged liver and question mild cirrhotic change. Mild diverticulosis of the colon. Fleischner guidelines were followed.
--- NOTE | ~2023-04-02 | XR_ITS ---
EXAMINATION: XR ABDOMEN KUB CLINICAL INDICATION: Renal calculi COMPARISON: None available. TECHNIQUE: AP view of the abdomen. FINDINGS: The bowel gas pattern is normal with no evidence of ileus or obstruction. No unusual soft tissue calcifications are noted. The calculi seen on the prior CT scan and ultrasound exams cannot be appreciated on this plain film exam. The bones are unremarkable. XR/XR KUB IMPRESSION: The calculi seen on the prior imaging cannot be appreciated on this plain film exam.
--- NOTE | 2023-04-02 07:49 | MHC.SHP ---
Pre-Procedural Eval Section A Date of Service: 04/02/23 The patient is an INPATIENT: No The History & Physical has been completed within 30 days and I have reviewed it.: No Section B Chief Complaint: Calculus of kidney, left Details of Present Illness: 63 year old female with bilateral kidney stones L>R. H/O aflutter followed by cardiology, on eliquis and aspirin, discussed stop blood thinners for procedure. Patient seen by cardiology for clearance. Relevant Family History (Specify if Yes): No Relevant Social History: None Present Medications: see Short Stay Collaborative assessment Medical History: Significant History (Aflutter, Htn) Allergies: Allergies Allergy/AdvReac Type Severity Reaction Status Date / Time dulaglutide [Trulicity] Allergy Severe Abdominal Verified 03/18/23 15:09 Pain levofloxacin Allergy Severe Nausea and Verified 03/18/23 15:09 Vomiting penicillamine Allergy Severe Rash Verified 03/18/23 15:09 morphine [MORPHINE] Allergy Intermediate RASH Verified 03/18/23 15:09 oxycodone [Oxycodone] Allergy Intermediate ITCHING Verified 03/18/23 15:09 Penicillins [PENICILLINS] Allergy Intermediate RASH Verified 03/18/23 15:09 Sulfa (Sulfonamide Allergy Intermediate RASH/DIFFICULTY Verified 03/18/23 15:09 Antibiotics) BREATHING Review of Systems Review of Systems Comment: ROS negative other than stated in HPI Exam Surgical H&P Exam: Normal: HEENT, Normal: Heart, Normal: Lungs, Normal: Skin and Normal: Neurological Plan Diagnosis/Plan: Unchanged I have reviewed the history and physical and performed a pertinent physical examination on my patient. No changes have occurred unless specified. Left ESWL. Discussed risks to include but not limited to, blood in the urine, bruising to the skin, kidney hematoma, possible need for another procedure if a stone fragment obstructs the ureter while passing, possible need to repeat procedure if stone is not completely fragmented. Time Spent With Patient Time: Total time managing care of this patient today ____ minutes.
[2023-04-02 10:22] VITALS: BP 109/59; PULSE 94; RESP 18; TEMP 37.1; O2SAT 96
[2023-04-02] MEDS: Scopolamine 1.5 MG PATCH.TD.3 TRANSDERMA (10:30)
[2023-04-02] MEDS: Lactated Ringers 1,000 ML 100 ML IVCONT (10:58)
--- NOTE | 2023-04-02 12:10 | PC.NURSE ---
pt cancelled dr arevalo at bedside need kuldeep held 7 days called karishma. posadas will call her tomorrow with cr scan results pt aware iv d/maya
--- NOTE | 2023-04-02 12:15 | PC.NURSE ---
scoplamine patch removed cancelled by dr scott pt verbalized undrstanding of d/c
== END ==
LOC: HO.SSS 09:28
PROVIDERS: PCP Internal Medicine; Visit Provider Urology
DX: N20.0 Calculus of kidney (principal); Z53.8 Procedure and treatment not carried out for other reasons; Z79.01 Long term (current) use of anticoagulants
CPT/HCPCS: 74018; 74176; J0131; J0690

== ENCOUNTER 2023-06-17 15:41 | Outpatient (AMB) | payer OTHER, SELFPAY ==
[2023-06-17 15:45] VITALS: PULSE 89; O2SAT 97; BMI 35.3
--- NOTE | 2023-06-17 15:45 | A.OFFVIS_ITS ---
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 Required: No Allergies dulaglutide [Trulicity] Allergy (Severe, Verified 06/17/23 15:47) Abdominal Pain levofloxacin Allergy (Severe, Verified 06/17/23 15:47) Nausea and Vomiting penicillamine Allergy (Severe, Verified 06/17/23 15:47) Rash morphine [MORPHINE] Allergy (Intermediate, Verified 06/17/23 15:47) RASH oxycodone [Oxycodone] Allergy (Intermediate, Verified 06/17/23 15:47) ITCHING Penicillins [PENICILLINS] Allergy (Intermediate, Verified 06/17/23 15:47) RASH Sulfa (Sulfonamide Antibiotics) Allergy (Intermediate, Verified 06/17/23 15:47) RASH/DIFFICULTY BREATHING HPI HPI Comments History of Present Illness Details The patient is a 63-year-old woman with a known history of severe persistent asthma, obstructive sleep apnea on CPAP in an elevated right hemidiaphragm. 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 She has continued to Xolair every 2 weeks in her respiratory regimen which includes Dulera and Spiriva. She has not been using her nebulizer. She has been complaining of more shortness of breath and wheezing. The Xolair she has been on for the last 6-7 years. She feels that she still gets some response to it. Her central sterile technician did talk to her about considering other agents in the near future. Wheezing still pretty significant on a daily basis. Which could be moderate to severe. She is also complaining of daytime drowsiness. She has been using the CPAP the whole night, but still waking up tired. We talked about requesting a download from her [employer] in adjusting her machine. She will bring her machine during the next follow-up. We also was evaluated at the [facility] ER for palpitations. She was not Sudafed at the time. She is no longer taking it. She did have a chest x-ray which was without any acute disease. Initially she responded very well to the Brovana and budesonide. However, her insurance did not cover the Brovana and therefore starter Perforomist. The performomist not working for her. She is getting more chest tightness and wheezing as well as shortness of breath. 08/17/2020. The patient is here for pulmonary follow-up visit. Overall she is doing okay. Responding well to the current respiratory therapy. Has been having chest tightness and wheezing at times. Continues on Xolair an d nebulized therapy. Continues CPAP therapy. Complaining of some irritation from her mask. Does get some nasal congestion and post nasal drip, mild to moderate severity. She also has been dealing with GI symptoms. She has lost weight with good results. 03/19/2021 the patient is here for pulmonary follow-up visit. She is overall doing better from a respiratory status. She did increase her Xolair to twice month in appears to be more effective. She continues on the nebulized therapy with good adherence and affect. For lately because of her allergies she has been having to use her rescue inhaler little bit more often about once a day. For in the meantime she continues uses CPAP therapy. CPAP therapy has been affecting beneficial. She did bring her machine and we were able to downloaded. Her AHI is close to 0. She does average more than 4 hours a night. She does have a hard time sleeping. She does use a small dose of Ambien. This has been helpful. But, even with a full night's sleep she is still waking up drowsy and sleepy. Her [place] score still elevated 10/24. We did talk about considering stimulant therapy. But, she is in a lot of medications and she is also more sensitive to medications. 09/18/2021 the patient is here for a pulmonary follow-up visit. She is complaining of productive cough moderate in severity. The cough got worse once the Daliresp was no longer available for her. The Daliresp therapy has very affecting beneficial. She continues on maximum respiratory therapy with a long- acting beta agonist, long-acting muscarinic antagonist, inhaled steroid in addition to biologic therapy with Xolair. Daliresp has been very effective for her. Now that she is off it for 5 days her cough is getting worse. Therefore we will submit another prescription to the pharmacy and make sure she gets this refilled. Patient also does complaint of congested cough. If the cough gets worse or if changes in color will discuss further therapies including antibiotics if necessary. She continues to work closely with Allergy. She was started on Spiriva which appears to be effective for her in conjunction with her nebulized therapy at this time. 03/18/2022 the patient is here for a pulmonary follow-up visit. Since we last spoke the patient started developing worsening palpitations and drove herself to [place] [facility]. She was diagnosed with atrial flutter. She was evaluated by Cardiology. the patient was started on beta blockers. Seems to be tolerating them without worsening her asthma symptoms. She continues also on her respiratory therapy. She does use a from motor all which she has a very strong beta agonist. We did think about changing alternating her beta agonist medications to minimize cardiac irritability. However, at this point her breathing is finally well controlled and would would hate to worsen her respiratory capacity at this time. The patient also continues on Xolair. She will talk to her allergies about considering to switch over to Dupixent or alternative. In the meantime she does continue to use her CPAP. The CPAP therapy continues to be affecting beneficial. Her mass however falls off and she has a hard time staying asleep. She will call her [employer], [employer], to be set up with a new mask. 09/17/2022 the patient is here for pulmonary follow-up visit. Overall the patient is doing a little better. Since we last spoke she did have her Xolair increase to 300 mg every 2 weeks. She also continues with the nebulized therapy that has been effective for. Recently she was exposed to perfume while at school and she did have a flare up which she had to go outside in use her inhalers. She did improve after that although it took her few hours to do so. She did not require prednisone. She does have a hard time with the nebulized therapy twice a day specially in the morning when she has to go to work. At this point we could try to optimize her inhaler therapy by switching her over to breztri. I will send a prescription to the pharmacy. The patient understands that if she does uses inhaler she cannot use the Brovana and the budesonide. Patient also will stop the Spiriva. This will make it easier for her specially when she is trying to get ready for school. She continues use her CPAP therapy. The therapy has been affecting beneficial. She does use it for more than 4 hours a night. She does have an appoint with her central sterile technician coming up soon. She should continue with Xolair specially since her dose was increased. If however she does not see any significant improvement after several months that she could consider switching over to a different biologic regimen such as Dupixent. 03/18/2023 the patient is here for pulmonary follow-up visit. The patient is not feeling well. She started developing worsening cough chest congestion and shortness of breath. She did test for COVID-19 and she was negative. She is exposed to significant amount of kids and sick contacts. She has been also having increasing chest tightness. She is trying to avoid prednisone altogether. The patient also has been having issues with decreased energy. She feels very drain and significant dyspnea. She is not sure if is related to stress. She is also having hard time sleeping. She needs her Ambien. Patient also has been dealing with significant amount of kidney stones. She is scheduled to undergo lithotripsy in the near future. Therefore, will go ahead and start antibiotics to treat her for a bronchitis or lower respiratory infection hopefully she can the better part of a seizure. If however she did not the patient will need to consider rescheduling minimize worsening symptoms. In the meantime the patient appears to be pale in appearance. Therefore will go ahead and request blood work including CBC to assess hemoglobin. the patient has been taking Eliquis for her atrial flutter. she reports paroxysmal episodes of the flutter. She is currently on diltiazem. She cannot use any beta blockers due to her significant asthma. 06/17/2023 the patient is here for pulmonary follow-up visit. Overall the patient has been doing fairly well. She still having a congested cough. With white phlegm. Moderate severity. She continues to have some shortness of breath and chest tightness but otherwise about the same. She had been on Brovana and was switched over to Xopenex because of tremulous and palpitations and increased heart rate. However, the patient did not see any significant change in the heart rate and her breathing has been little bit worse. Therefore she rather go back on the Brovana and she will continue with the budesonide. I also encouraged her to continue with Spiriva as well. Will treat her with some azithromycin for 5 days for bronchitis. She otherwise has been doing okay she continues on the Eliquis for her atrial flutter. She also continues on CPAP therapy. She continues on Xolair. If she continues to be symptomatic she will talk to her central sterile technician regarding switching her over to a different agent such as Dupixent. [facility] Medical History (Updated 06/17/23 @ 15:53 by Carlin Oliva MD) Arthritis Asthma Asthma-COPD overlap syndrome Atrial flutter Diabetes GERD (gastroesophageal reflux disease) Rafa's thyroiditis Insomnia On anticoagulant therapy BERENICE on CPAP Polycystic ovarian syndrome PONV (postoperative nausea and vomiting) Surgical History (Updated 03/31/23 @ 15:38 by Brandie Black RN) History of Achilles tendon repair History of cystoscopy History of detached retina repair History of lithotripsy History of umbilical hernia repair Hx of arthroscopy of knee Family History Other Diabetes Social History Are you a primary insurance healthcare representative to a significant other at home: No Do you presently have visiting nurse or other home services: No Patient Tobacco Use Status: Never used Tobacco Review of Systems Const Reports daytime sleepiness, Reports difficulty sleeping, Reports fatigue and Denies night sweats ENT Denies change in voice, Denies lip swelling, Denies mouth pain, Reports nasal congestion, Reports nasal discharge and Denies tongue swelling Card Denies chest pain, Reports palpitations, Denies dyspnea and Reports dyspnea on exertion Resp Reports chest congestion, Reports cough, Denies dyspnea, Reports dyspnea on exertion and Reports wheezing GI Denies abdominal pain, Denies GI cramping, Reports dyspepsia and Reports diarrhea Musc Denies no additional complaints Neuro Denies Neuro-related abnormal movements Psych Denies no additional complaints Endo Reports fatigue and Reports palpitations Mason/Lymph Denies easy bleeding and Denies lymphadenopathy Aller/Immun Denies lip swelling, Denies tongue swelling and Reports wheezing Physical Exam Vital Signs: Last Vital Signs Pulse 89 06/17/23 15:45 Pulse Ox 97 06/17/23 15:45 Oxygen Delivery Method Room Air 06/17/23 15:45 BMI result Body Mass Index 35.3 Const General: alert Eyes Pupils: Equal, round and reactive pupils present Neck Neck: Yes normal visual inspection, Yes full ROM and Yes no lymphadenopathy Chest Chest palpation & inspection: normal inspection of the chest Resp Auscultation: no rhonchi, no wheezes and diminished lung sounds Cardio Rate: regular rate Rhythm: regular rhythm Heart sounds: S1 normal heart sound present and S2 normal heart sound present GI Palpation (GI): Soft to palpation and nontender Auscultation: normal bowel sounds Skin General skin exam: rashes and/or lesions noted Neuro Cranial nerves: Yes Equal, round and reactive pupils present Assessment & Plan Assessment & Plan (1) BERENICE on CPAP: Code(s): G47.33 - Obstructive sleep apnea (adult) (pediatric); Z99.89 - Dependence on other enabling machines and devices (2) Asthma: Code(s): J45.909 - Unspecified asthma, uncomplicated Qualifiers: Asthma complication type: uncomplicated Asthma persistence: unspecified Asthma severity: moderate Qualified Code(s): J45.909 - Unspecified asthma, uncomplicated (3) Insomnia: Code(s): G47.00 - Insomnia, unspecified Qualifiers: Insomnia type: primary Qualified Code(s): F51.01 - Primary insomnia (4) Asthma-COPD overlap syndrome: Code(s): J44.9 - Chronic obstructive pulmonary disease, unspecified (5) Bronchitis: Code(s): J40 - Bronchitis, not specified as acute or chronic Plan Continue APAP therapy (regional) needs new mask Restart Brovana continue BUdesonide Xopened BID and as needed continue Spiriva Continue Singulair Conitnue Ambien at night Continue higher Xolair 300mg 2/month, considerDupixent if no better Needs to continue the Daliresp 500mcg Azithromycin x 5 days F/U 6 months Medications: New azithromycin 500 mg PO DAILY 5 days 5 tabs 0RF Coding Level of Care Code Est Pt Level 4 (07356) Diagnoses BERENICE on CPAP G47.33; Z99.89 Asthma J45.909 Asthma complication type: uncomplicated Asthma persistence: unspecified Asthma severity: moderate Insomnia F51.01 Insomnia type: primary Asthma-COPD overlap syndrome J44.9 Bronchitis J40 Time Spent (min) 18
== END 2023-06-17 16:12 | disposition home or self-care (01) ==
PROVIDERS: PCP Internal Medicine; Visit Provider Hospitalist
DX: G47.33 Obstructive sleep apnea (adult) (pediatric) (principal); Z99.89 Dependence on other enabling machines and devices; J45.909 Unspecified asthma, uncomplicated; F51.01 Primary insomnia
CPT/HCPCS: 99214

== ENCOUNTER → 2023-06-17 15:41 | Outpatient (BNVA) | payer OTHER, SELFPAY | PROVIDERS: PCP Internal Medicine; Visit Provider Hospitalist | DX: J45.909 Unspecified asthma, uncomplicated (principal); J44.9 Chronic obstructive pulmonary disease, unspecified ==

== ENCOUNTER 2023-08-20 15:34 | Outpatient (AMB) | payer OTHER, SELFPAY ==
--- NOTE | 2023-08-20 15:35 | A.OFFVIS_ITS ---
Intake Intake Visit Reasons: 20wk follow up Intake Note: Patient presents today for a follow-up on Calculus of Kidney, Left: Meds- None Allergies to Antibiotic- Levofloxacin, Penicillin & Sulfa Blood Thinner- Eliquis & Aspirin Rotor Assembler Required: No Accompanied by: Self / Same As Patient Allergies dulaglutide [Trulicity] Allergy (Severe, Verified 08/20/23 15:36) Abdominal Pain levofloxacin Allergy (Severe, Verified 08/20/23 15:36) Nausea and Vomiting penicillamine Allergy (Severe, Verified 08/20/23 15:36) Rash morphine [MORPHINE] Allergy (Intermediate, Verified 08/20/23 15:36) RASH oxycodone [Oxycodone] Allergy (Intermediate, Verified 08/20/23 15:36) ITCHING Penicillins [PENICILLINS] Allergy (Intermediate, Verified 08/20/23 15:36) RASH Sulfa (Sulfonamide Antibiotics) Allergy (Intermediate, Verified 08/20/23 15:36) RASH/DIFFICULTY BREATHING HPI HPI Comments History of Present Illness Details Maricarmen is a 63-year-old female who presents via Tele-health visit for a follow-up. 08/20/2023? She is followed today for nephrolithiasis. h/o chronic diarrhea. She was last seen by me on 04/02/2023.?Scheduled Repeat Left ESWL was cancelled due to patient not being off blood thinners long enough. Shala had been off Aspirin for 7 days and Eliquis for 3 days ago, as directed by her Rags Laborer. CT Abd/pelvis 04/02/23- Left kidney stone - small up to 2 mm and not obstructive. ESWL has a higher risk for renal hematoma and decision to cancel ESWL was recommended. Also stone size was small CTAP: small bilateral renal stones. ---2 mm stone-- lower pole right kidney. 1- 2 mm -stone upper pole -left kidney. Two small 1 - 2 mm stones lower pole -- left kidney. Currently denies renal colic symptoms. History of left ESWL on 10/02/22. Review of chart: left ESWL on 10/02/22. 24 hour urine results--01/31/23-- Total vo lume 3.64 L, Calcium 182 mg; Oxalate 79 mg, Sodium 257, Citrate 1188 mg. Renal US results reviewed?01/20/23-- Bilateral renal stones, in the right kidney the largest is 5 x 7 x 5 mm and in the left kidney largest being 12 x 8 x 9 mm at the lower pole. 08/20/2023: Plan: We will monitor left kidney stone Advised the patient to consume adequate amount of fluids, low sodium and low oxalate diet Cont Vit B6 100 mg daily PFSH Medical History PONV (postoperative nausea and vomiting) Arthritis Diabetes Polycystic ovarian syndrome Rafa's thyroiditis GERD (gastroesophageal reflux disease) On anticoagulant therapy Atrial flutter Asthma-COPD overlap syndrome Insomnia BERENICE on CPAP Asthma Surgical History Hx of arthroscopy of knee History of Achilles tendon repair History of detached retina repair History of umbilical hernia repair History of cystoscopy History of lithotripsy Family History (Updated 08/20/23 @ 15:48 by FLAKO Nix) Mother No problems noted. Father No problems noted. Other Diabetes Are you a primary career guidance counselor to a significant other at home: No Do you presently have visiting nurse or other home services: No Patient Tobacco Use Status: Never used Tobacco Review of Systems Const All systems reviewed & are unremarkable except as noted in HPI and below Reports no additional complaints Eyes Reports no additional complaints ENT Reports no additional complaints Card Denies dyspnea Resp Denies cough and Denies dyspnea GI Reports no additional complaints Reports no additional complaints Musc Reports no additional complaints Skin/Breast Denies rash and Denies unusual bruising Neuro Reports no additional complaints Psych Reports no additional complaints Endo Reports no additional complaints Mason/Lymph Reports no additional complaints Aller/Immun Reports no additional complaints Results Reviewed Results Reviewed: Date of Service: 04/02/23 EXAMINATION: CT ABDOMEN AND PELVIS WITHOUT CONTRAST CLINICAL INFORMATION: Kidney stones COMPARISON: Previous KUB from earlier the same day, renal ultrasound most recent December [address] of the abdomen and pelvis most recent October 2021 TECHNIQUE: Multidetector volumetric imaging was performed from the superior aspect of the liver through the pubic symphysis. Sagittal and coronal reformatted images were obtained on the technologist's workstation. This CT examination was performed using dose optimization techniques as appropriate, variously including the following: *Automated exposure control *Adjustment of mA and/or kV according to patient size (this includes techniques or standardized protocols for targeted exams where dose is matched to indication/reason for exam; i.e. extremities or head) *Use of iterative reconstruction technique DLP: 746 mGy-cm FINDINGS: LUNG BASES: The visualized lung bases are unremarkable. LIVER, GALLBLADDER, AND BILIARY TREE: The liver is enlarged right lobe measuring 23 cm in length. The contour of the liver is slightly irregular questionable for mild cirrhotic change. No focal liver lesion. The gallbladder is normal. There is no biliary duct dilatation. PANCREAS: Unremarkable. SPLEEN: Unremarkable. ADRENAL GLANDS: Unremarkable. KIDNEYS AND URETERS: There are small bilateral renal stones. There is a 2 mm stone in the lower pole of the right kidney. There is a 1 to 2 mm stone in the upper pole of the left kidney. There are 2 small 1 to 2 mm stones in the lower pole of the left kidney. No hydronephrosis, ureteral dilatation or ureteral stone. BLADDER: Unremarkable. GASTROINTESTINAL TRACT: There is mild diverticulosis of the colon. The small and large bowel are otherwise unremarkable. The appendix is unremarkable. ABDOMINAL WALL: No significant hernia is appreciated. LYMPH NODES: Normal. VASCULAR: Unremarkable. PELVIC VISCERA: Unremarkable. OSSEOUS STRUCTURES: Degenerative changes of the spine and hip joints. Degenerative changes at the sacroiliac joints. IMPRESSION: Small bilateral renal stones. No hydronephrosis, ureteral dilatation or ureteral stone. Enlarged liver and question mild cirrhotic change. Mild diverticulosis of the colon. Assessment & Plan Assessment & Plan (1) Bilateral kidney stones: Code(s): N20.0 - Calculus of kidney (2) Hyperoxaluria: Code(s): R82.992 - Hyperoxaluria Plan We will monitor. Advised the patient to consume adequate amount of fluids. Patient Instructions: The patient had an opportunity to ask questions regarding treatment plan. All questions were answered. Imaging, Laboratory studies and physical exam results were discussed and reviewed in detail. No major barriers to understanding were identified. The patient expressed understanding and agreement with the above treatment plan.? ? ? The patient is aware they should contact our office by phone for worsening of their current condition or the appearance of new symptoms. Compliance is encouraged with any medications and followup testing that is ordered.? ? ? It is a privilege to be allowed the opportunity to participate in the urologic care of your patient. If you have any questions or concerns regarding treatment for the above conditions please do not hesitate to contact me. The office telephone contact is [phone].? ? ? This note is constructed in part using voice recognition software. While every effort has been made to ensure accuracy substitute teacher errors may have been included.? ? ? Yours sincerely,? ? ? John Guidry MD? Telehealth Telehealth Location of provider rendering services: practice address Location of patient: address on file Patient Identification confirmed using: Name, : Yes Telehealth method: voice only Patient verbally consented to treatment: Yes Patient verbally consented to billing insurance company: Yes Patient informed of any privacy concerns related to visit: Yes Minutes spent on Phone/Video with Pt.: 15 Coding Level of Care Code Tele Est Pt Level 4 (28161) Diagnoses Bilateral kidney stones N20.0 Hyperoxaluria R82.992
== END 2023-08-20 16:00 | disposition home or self-care (01) ==
LOC: HO.HUSH 15:34
PROVIDERS: PCP Internal Medicine; Visit Provider Urology
DX: N20.0 Calculus of kidney (principal); R82.992 Hyperoxaluria
CPT/HCPCS: 99442

== ENCOUNTER → 2023-08-20 15:34 | Outpatient (BNVA) | payer OTHER, SELFPAY | PROVIDERS: PCP Internal Medicine; Visit Provider Urology ==

== ENCOUNTER 2023-10-22 10:14 | Outpatient (AMB) | payer OTHER, SELFPAY ==
--- NOTE | 2023-10-22 10:17 | MHC.OFFVIS ---
Intake Vital Signs 10/22/23 10:22 Height 5 ft 5 in Weight 204 lb 4 oz BMI 34.0 BP 122/60 Blood Pressure Location Lt brachial Position Sitting Pulse 89 Pulse Source Pulse Oximeter Pulse Oximetry (%) 98 Oxygen Delivery Method Room Air Intake Visit Reasons: Asthma Free Lance Artist Required: No Allergies dulaglutide [Trulicity] Allergy (Severe, Verified 10/22/23 10:24) Abdominal Pain levofloxacin Allergy (Severe, Verified 10/22/23 10:24) Nausea and Vomiting penicillamine Allergy (Severe, Verified 10/22/23 10:24) Rash morphine [MORPHINE] Allergy (Intermediate, Verified 10/22/23 10:24) RASH oxycodone [Oxycodone] Allergy (Intermediate, Verified 10/22/23 10:24) ITCHING Penicillins [PENICILLINS] Allergy (Intermediate, Verified 10/22/23 10:24) RASH Sulfa (Sulfonamide Antibiotics) Allergy (Intermediate, Verified 10/22/23 10:24) RASH/DIFFICULTY BREATHING HPI HPI Comments History of Present Illness Details The patient is a 63-year-old woman with a known history of severe persistent asthma, obstructive sleep apnea on CPAP in an elevated right hemidiaphragm. 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 She has continued to Xolair every 2 weeks in her respiratory regimen which includes Dulera and Spiriva. She has not been using her nebulizer. She has been complaining of more shortness of breath and wheezing. The Xolair she has been on for the last 6-7 years. She feels that she still gets some response to it. Her cabinetmaker maintenance did talk to her about considering other agents in the near future. Wheezing still pretty significant on a daily basis. Which could be moderate to severe. She is also complaining of daytime drowsiness. She has been using the CPAP the whole night, but still waking up tired. We talked about requesting a download from her [employer] in adjusting her machine. She will bring her machine during the next follow-up. We also was evaluated at the [facility] ER for palpitations. She was not Sudafed at the time. She is no longer taking it. She did have a chest x-ray which was without any acute disease. Initially she responded very well to the Brovana and budesonide. However, her insurance did not cover the Brovana and therefore starter Perforomist. The performomist not working for her. She is getting more chest tightness and wheezing as well as shortness of breath. 08/17/2020. The patient is here for pulmonary follow-up visit. Overall she is doing okay. Responding well to the current respiratory therapy. Has been having chest tightness and wheezing at times. Continues on Xolair an d nebulized therapy. Continues CPAP therapy. Complaining of some irritation from her mask. Does get some nasal congestion and post nasal drip, mild to moderate severity. She also has been dealing with GI symptoms. She has lost weight with good results. 03/19/2021 the patient is here for pulmonary follow-up visit. She is overall doing better from a respiratory status. She did increase her Xolair to twice month in appears to be more effective. She continues on the nebulized therapy with good adherence and affect. For lately because of her allergies she has been having to use her rescue inhaler little bit more often about once a day. For in the meantime she continues uses CPAP therapy. CPAP therapy has been affecting beneficial. She did bring her machine and we were able to downloaded. Her AHI is close to 0. She does average more than 4 hours a night. She does have a hard time sleeping. She does use a small dose of Ambien. This has been helpful. But, even with a full night's sleep she is still waking up drowsy and sleepy. Her Melrose score still elevated 10/24. We did talk about considering stimulant therapy. But, she is in a lot of medications and she is also more sensitive to medications. 09/18/2021 the patient is here for a pulmonary follow-up visit. She is complaining of productive cough moderate in severity. The cough got worse once the Daliresp was no longer available for her. The Daliresp therapy has very affecting beneficial. She continues on maximum respiratory therapy with a long-acting beta agonist, long-acting muscarinic antagonist, inhaled steroid in addition to biologic therapy with Xolair. Daliresp has been very effective for her. Now that she is off it for 5 days her cough is getting worse. Therefore we will submit another prescription to the pharmacy and make sure she gets this refilled. Patient also does complaint of congested cough. If the cough gets worse or if changes in color will discuss further therapies including antibiotics if necessary. She continues to work closely with Allergy. She was started on Spiriva which appears to be effective for her in conjunction with her nebulized therapy at this time. 03/18/2022 the patient is here for a pulmonary follow-up visit. Since we last spoke the patient started developing worsening palpitations and drove herself to [place] ED. She was diagnosed with atrial flutter. She was evaluated by Cardiology. the patient was started on beta blockers. Seems to be tolerating them without worsening her asthma symptoms. She continues also on her respiratory therapy. She does use a from motor all which she has a very strong beta agonist. We did think about changing alternating her beta agonist medications to minimize cardiac irritability. However, at this point her breathing is finally well controlled and would would hate to worsen her respiratory capacity at this time. The patient also continues on Xolair. She will talk to her allergies about considering to switch over to Dupixent or alternative. In the meantime she does continue to use her CPAP. The CPAP therapy continues to be affecting beneficial. Her mass however falls off and she has a hard time staying asleep. She will call her [employer], [employer], to be set up with a new mask. 09/17/2022 the patient is here for pulmonary follow-up visit. Overall the patient is doing a little better. Since we last spoke she did have her Xolair increase to 300 mg every 2 weeks. She also continues with the nebulized therapy that has been effective for. Recently she was exposed to perfume while at school and she did have a flare up which she had to go outside in use her inhalers. She did improve after that although it took her few hours to do so. She did not require prednisone. She does have a hard time with the nebulized therapy twice a day specially in the morning when she has to go to work. At this point we could try to optimize her inhaler therapy by switching her over to breztri. I will send a prescription to the pharmacy. The patient understands that if she does uses inhaler she cannot use the Brovana and the budesonide. Patient also will stop the Spiriva. This will make it easier for her specially when she is trying to get ready for school. She continues use her CPAP therapy. The therapy has been affecting beneficial. She does use it for more than 4 hours a night. She does have an appoint with her cabinetmaker maintenance coming up soon. She should continue with Xolair specially since her dose was increased. If however she does not see any significant improvement after several months that she could consider switching over to a different biologic regimen such as Dupixent. 03/18/2023 the patient is here for pulmonary follow-up visit. The patient is not feeling well. She started developing worsening cough chest congestion and shortness of breath. She did test for COVID-19 and she was negative. She is exposed to significant amount of kids and sick contacts. She has been also having increasing chest tightness. She is trying to avoid prednisone altogether. The patient also has been having issues with decreased energy. She feels very drain and significant dyspnea. She is not sure if is related to stress. She is also having hard time sleeping. She needs her Ambien. Patient also has been dealing with significant amount of kidney stones. She is scheduled to undergo lithotripsy in the near future. Therefore, will go ahead and start antibiotics to treat her for a bronchitis or lower respiratory infection hopefully she can the better part of a seizure. If however she did not the patient will need to consider rescheduling minimize worsening symptoms. In the meantime the patient appears to be pale in appearance. Therefore will go ahead and request blood work including CBC to assess hemoglobin. the patient has been taking Eliquis for her atrial flutter. she reports paroxysmal episodes of the flutter. She is currently on diltiazem. She cannot use any beta blockers due to her significant asthma. 06/17/2023 the patient is here for pulmonary follow-up visit. Overall the patient has been doing fairly well. She still having a congested cough. With white phlegm. Moderate severity. She continues to have some shortness of breath and chest tightness but otherwise about the same. She had been on Brovana and was switched over to Xopenex because of tremulous and palpitations and increased heart rate. However, the patient did not see any significant change in the heart rate and her breathing has been little bit worse. Therefore she rather go back on the Brovana and she will continue with the budesonide. I also encouraged her to continue with Spiriva as well. Will treat her with some azithromycin for 5 days for bronchitis. She otherwise has been doing okay she continues on the Eliquis for her atrial flutter. She also continues on CPAP therapy. She continues on Xolair. If she continues to be symptomatic she will talk to her cabinetmaker maintenance regarding switching her over to a different agent such as Dupixent. 10/22/2023 the patient is here for a pulmonary follow-up visit. Since we last spoke back in the end of August she did undergo knee arthroscopy findings she had no cartilage in her knee. Was recommended that she consider getting a knee replacement. She is going to think about it for now. In the meantime after surgery she did develop increasing cough and chest congestion. She noticed that her sputum was fall and smell and also was colored. She had just completed antibiotics several weeks before and therefore she opted on trying to hold off on any antibiotics. Her symptoms did initially get a little better but then got worse again. Moderate severity. She also complains of some slight discomfort in the left lower chest area that comes and goes. On examination she does have some fine scattered crackles in the left base likely atelectasis although can not rule out early pneumonia. The patient will be started on Vantin since she is allergic to penicillin she will monitor closely for any allergic reactions. Her allergies to penicillin will basically simple rash so therefore not too concerning. No significant wheezing on examination so therefore she does not any prednisone. The patient will continue with current respiratory therapy as well. I did encourage her to pickle processor Mucinex and to use her nebulizer for mucus clearance and for chest physical therapy. If she has no better while on the antibiotics the patient should come in for an x-ray. [facility] Medical History PONV (postoperative nausea and vomiting) Arthritis Diabetes Polycystic ovarian syndrome Rafa's thyroiditis GERD (gastroesophageal reflux disease) On anticoagulant therapy Atrial flutter Asthma-COPD overlap syndrome Insomnia BERENICE on CPAP Asthma Surgical History Hx of arthroscopy of knee History of Achilles tendon repair History of detached retina repair History of umbilical hernia repair History of cystoscopy History of lithotripsy Family History (Updated 08/20/23 @ 15:48 by FLAKO Nix) Mother No problems noted. Father No problems noted. Other Diabetes Social History Are you a primary lawn caretaker to a significant other at home: No Do you presently have visiting nurse or other home services: No Patient Tobacco Use Status: Never used Tobacco Review of Systems Const Reports daytime sleepiness, Reports difficulty sleeping, Reports fatigue and Denies night sweats ENT Denies change in voice, Denies lip swelling, Denies mouth pain, Reports nasal congestion, Reports nasal discharge and Denies tongue swelling Card Reports chest pain, Reports palpitations, Denies dyspnea and Reports dyspnea on exertion Resp Reports change in phlegm color, Reports chest congestion, Reports cough, Denies hemoptysis, Denies dyspnea, Reports dyspnea on exertion and Reports wheezing GI Denies abdominal pain, Denies GI cramping, Reports dyspepsia and Reports diarrhea Musc Reports as per HPI, Reports abnormal gait, Reports arthralgias, Reports joint swelling and Reports limited range of motion Neuro Denies Neuro-related abnormal movements and Reports abnormal gait Psych Denies no additional complaints Endo Reports fatigue and Reports palpitations Mason/Lymph Denies easy bleeding and Denies lymphadenopathy Aller/Immun Denies lip swelling, Denies tongue swelling and Reports wheezing Physical Exam Vital Signs: Last Vital Signs Pulse 89 10/22/23 10:22 BP 122/60 10/22/23 10:22 Pulse Ox 98 10/22/23 10:22 Oxygen Delivery Method Room Air 10/22/23 10:22 BMI result Body Mass Index 34.0 Const General: alert Eyes Pupils: Equal, round and reactive pupils present Neck Neck: Yes normal visual inspection, Yes full ROM and Yes no lymphadenopathy Chest Chest palpation & inspection: normal inspection of the chest Resp Auscultation: crackles on the left at the base, no rhonchi, no wheezes and diminished lung sounds Cardio Rate: regular rate Rhythm: regular rhythm Heart sounds: S1 normal heart sound present and S2 normal heart sound present GI Palpation (GI): Soft to palpation and nontender Auscultation: normal bowel sounds Skin General skin exam: rashes and/or lesions noted Neuro Cranial nerves: Yes Equal, round and reactive pupils present Assessment & Plan Assessment & Plan (1) BERENICE on CPAP: Code(s): G47.33 - Obstructive sleep apnea (adult) (pediatric); Z99.89 - Dependence on other enabling machines and devices (2) Asthma: Code(s): J45.909 - Unspecified asthma, uncomplicated Qualifiers: Asthma complication type: uncomplicated Asthma persistence: unspecified Asthma severity: moderate Qualified Code(s): J45.909 - Unspecified asthma, uncomplicated (3) Insomnia: Code(s): G47.00 - Insomnia, unspecified Qualifiers: Insomnia type: primary Qualified Code(s): F51.01 - Primary insomnia (4) Asthma-COPD overlap syndrome: Code(s): J44.9 - Chronic obstructive pulmonary disease, unspecified (5) Bronchitis: Code(s): J40 - Bronchitis, not specified as acute or chronic (6) Atelectasis: Code(s): J98.11 - Atelectasis Plan start Incentive Spirometry, one provided Start Vantin (monitor for rash) CXR if no better Continue APAP therapy (regional) needs new mask Restart Brovana continue BUdesonide Xopened BID and as needed continue Spiriva Continue Singulair Conitnue Ambien at night Continue higher Xolair 300mg 2/month, considerDupixent if no better Needs to continue the Daliresp 500mcg F/U 4-6 months Orders: Orders XR chest 2V Today J45.909 - Unspecified asthma, uncomplicated Medications: New cefpodoxime must administer with a meal/food 200 mg PO BID 20 tabs 0RF Changed From arformoterol 2 mL PO BID 360 mL 1RF To arformoterol 2 mL inhalation BID 90 days 360 mL 3RF Refilled budesonide 0.5 mg (2 mL) inhalation BID 360 mL 2RF J44.9 - Chronic obstructive pulmonary disease, unspecified arformoterol 2 mL PO BID 360 mL 1RF Coding Level of Care Code Est Pt Level 4 (40868) Diagnoses BERENICE on CPAP G47.33; Z99.89 Moderate asthma without complication, unspecified whether persistent J45.909 Asthma complication type: uncomplicated Asthma persistence: unspecified Asthma severity: moderate Primary insomnia F51.01 Insomnia type: primary Asthma-COPD overlap syndrome J44.9 Bronchitis J40 Atelectasis J98.11 Time Spent (min) 17
[2023-10-22 10:22] VITALS: BP 122/60; PULSE 89; O2SAT 98; BMI 34.0
== END 2023-10-22 10:44 | disposition home or self-care (01) ==
PROVIDERS: PCP Internal Medicine; Visit Provider Hospitalist
DX: G47.33 Obstructive sleep apnea (adult) (pediatric) (principal); Z99.89 Dependence on other enabling machines and devices; J45.909 Unspecified asthma, uncomplicated; F51.01 Primary insomnia; J44.9 Chronic obstructive pulmonary disease, unspecified; J40 Bronchitis, not specified as acute or chronic; J98.11 Atelectasis
CPT/HCPCS: 99214

== ENCOUNTER → 2023-10-22 10:14 | Outpatient (BNVA) | payer OTHER, SELFPAY | PROVIDERS: PCP Internal Medicine; Visit Provider Hospitalist | DX: J45.909 Unspecified asthma, uncomplicated (principal); J44.9 Chronic obstructive pulmonary disease, unspecified ==

== ENCOUNTER 2023-12-16 08:54 | Outpatient (AMB) | payer OTHER, SELFPAY ==
--- NOTE | 2023-12-16 08:09 | A.OFFVIS_ITS ---
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 Required: No Commercial Fisherman: Commercial Fisherman offered & declined Accompanied by: Self / Same As Patient Allergies dulaglutide [Trulicity] Allergy (Severe, Verified 12/16/23 09:13) Abdominal Pain levofloxacin Allergy (Severe, Verified 12/16/23 09:13) Nausea and Vomiting penicillamine Allergy (Severe, Verified 12/16/23 09:13) Rash morphine [MORPHINE] Allergy (Intermediate, Verified 12/16/23 09:13) RASH oxycodone [Oxycodone] Allergy (Intermediate, Verified 12/16/23 09:13) ITCHING Penicillins [PENICILLINS] Allergy (Intermediate, Verified 12/16/23 09:13) RASH Sulfa (Sulfonamide Antibiotics) Allergy (Intermediate, Verified 12/16/23 09:13) RASH/DIFFICULTY BREATHING Medication List - Last Reconciled 12/16/23 by Steph Lyon LPN albuterol sulfate 90 mcg/actuation 2 puffs inhalation Q2-4H PRN amitriptyline 25 mg PO BEDTIME apixaban (Eliquis) 5 mg PO BID arformoterol 2 mL inhalation BID 90 days aspirin 81 mg PO DAILY budesonide 0.5 mg (2 mL) inhalation BID cefpodoxime 200 mg PO BID cetirizine (Zyrtec) 10 mg PO DAILY cholecalciferol (vitamin D3) 125 mcg PO DAILY CPAP (CPAP Machine/Device) As directed diltiazem HCl 30 mg PO DIRECTED diltiazem HCl ER (DILT-XR) 240 mg PO DAILY diphenoxylate-atropine 2.5-0.025 mg 1 tab PO Q6-8H PRN empagliflozin (Jardiance) 25 mg PO DAILY epinephrine 0.3 mg IM ONCE flash glucose sensor As directed insulin lispro (Humalog KwikPen (U-100) Insulin) See Protocol sliding scale doses subcut TIDAC PRN levalbuterol HCl 1.25 mg (3 mL) inhalation BID 30 days levothyroxine 112 mcg PO DAILY lisinopril 10 mg PO DAILY metformin 1,000 mg PO BID montelukast 10 mg PO DAILY nebulizers As directed omalizumab (Xolair) mg subcut omalizumab (Xolair) mg subcut omeprazole 20 mg PO DAILY oseltamivir (Tamiflu) 75 mg PO BID 5 days pen needle, diabetic (BD Ultra-Fine Mini Pen Needle) As directed pyridoxine (vitamin B6) 100 mg PO DAILY roflumilast 500 mcg PO DAILY rosuvastatin 40 mg PO DAILY tiotropium bromide 2.5 mcg/actuation (Spiriva Respimat) 2 puffs inhalation DAILY 30 days zolpidem 10 mg PO BEDTIME PRN 30 days HPI persistent cough HPI Details Shala is a pleasant 63 year old female, never smoker, with underlying asthma COPD overlap syndrome, atrial flutter and GERD. At baseline, she is moderately controlled on budesonide, brovana, spiriva, singulair, xopenex neb, daliresp and xolair. Today she presents for an acute visit. She had called office when symptoms started last week with fever and flu exposure, ultimately placed on tamiflu. She reports improvements in body aches but respiratory symptoms persist. She reports chest congestion and productive cough with white to yellow sputum and significant difficulties expectorating as well as dyspnea. She denies wheezing and chest tightness. She has been using levalbuterol PRN and mucinex with minimal effect. Of note, she was seen by Dr. Oliva at the end of September with similar symptoms and treated with Vantin. She reports complete resolution of symptoms and tolerated medication well despite PCN allergy. [facility] Medical History PONV (postoperative nausea and vomiting) Arthritis Diabetes Polycystic ovarian syndrome Rafa's thyroiditis GERD (gastroesophageal reflux disease) On anticoagulant therapy Atrial flutter Asthma-COPD overlap syndrome Insomnia BERENICE on CPAP Asthma Surgical History Hx of arthroscopy of knee History of Achilles tendon repair History of detached retina repair History of umbilical hernia repair History of cystoscopy History of lithotripsy Family History (Updated 08/20/23 @ 15:48 by FLAKO Nix) Mother No problems noted. Father No problems noted. Other Diabetes Social History (Updated 12/16/23 @ 09:14 by Steph Lyon LPN) Are you a primary care navigator to a significant other at home: No Do you presently have visiting nurse or other home services: No Patient Tobacco Use Status: Never used Tobacco Smoked in Last 30 Days: No Review of Systems Const Denies chills, Denies excessive sweating, Denies fever(s), Denies headache(s) and Denies night sweats Eyes Denies dry eyes, Denies irritation and Denies itchy eyes ENT Reports Normal hearing present, Denies headache(s), Denies nasal congestion, Denies nasal discharge, Denies post nasal drip and Denies sore throat Card Denies chest pain, Denies chest pain at rest, Denies chest pain with activity, Denies claudication, Denies leg edema, Reports dyspnea, Denies orthopnea and Denies paroxysmal nocturnal dyspnea Resp Reports chest congestion, Reports cough, Denies excessive phlegm production, Denies pain on inspiration, Denies pain with cough, Reports dyspnea, Denies stridor and Denies wheezing Musc Denies myalgias Neuro Reports Normal hearing present and Denies headache(s) Endo Denies excessive sweating Mason/Lymph Denies lymphadenopathy Aller/Immun Denies itchy eyes, Denies seasonal rhinorrhea and Denies wheezing Physical Exam Vital Signs: Last Vital Signs Pulse 79 12/16/23 08:57 BP 110/64 12/16/23 08:57 Pulse Ox 100 12/16/23 08:57 Oxygen Delivery Method Room Air 12/16/23 08:57 BMI result Body Mass Index 35.8 Const General: cooperative, healthy appearing, comfortable, no acute distress, well developed and alert Nutritional Appearance: obese Orientation/consciousness: patient oriented x3 Limitations: no limitations HEENT Head: Yes normal to inspection, Yes normocephalic and Yes atraumatic Ears: hearing grossly normal bilaterally and external ears normal Eyes General: appearance normal, both eyes and all related structures Eyelids: Yes eyelids normal Sclerae: sclerae normal EOM: EOMs intact bilaterally Neck Neck: Yes normal visual inspection and Yes no lymphadenopathy Lymphatic: no lymphadenopathy noted Chest Chest palpation & inspection: normal inspection of the chest Resp Effort & Inspection: normal respiratory effort, able to speak in complete sentences, no audible wheezes, Actively coughing Quality: wet, no stridor, not tachypneic, no tripod positioning and no use of accessory muscles Auscultation: clear to auscultation bilaterally Cardio Jugular venous distension: no JVD Rate: regular rate Rhythm: regular rhythm Skin Other: warm, dry General skin exam: no rashes or lesions noted Neuro General: patient oriented x3 Cranial nerves: Yes Normal hearing present Cognition (Neuro): normal cognition Gait exam (Neuro): Normal gait present Extrem General: Yes normal to inspection, Yes capillary refill normal, Yes no clubbing, cyanosis or edema and Yes no pedal edema Psych Appearance: grossly normal and well kempt Speech and movement: Normal speech and movement present and Clear speech present Affect: normal affect Attitude: cooperative Thought process: Normal thought process present Thought content: Normal thought content present Insight: Good insight present (Psych) Judgement: Good judgement present (Psych) Assessment & Plan Assessment & Plan (1) Asthma-COPD overlap syndrome: Code(s): J44.9 - Chronic obstructive pulmonary disease, unspecified (2) Bronchitis: Code(s): J40 - Bronchitis, not specified as acute or chronic Plan Will treat bronchitic symptoms with doxycyline. Patient is aware if symptoms do not improve to call the office and if they worsen to seek emergent care. ?Will follow up with Dr. Oliva for regularly scheduled appointment or sooner if needed. All questions were answered and patient is in agreement of plan. Medications: New doxycycline hyclate 100 mg PO BID 20 caps 0RF Coding Level of Care Code Est Pt Level 3 (96165) Diagnoses Asthma-COPD overlap syndrome J44.9 Bronchitis J40
[2023-12-16 08:57] VITALS: BP 110/64; PULSE 79; O2SAT 100; BMI 35.8
--- NOTE | 2023-12-16 09:12 | MHC.OFFVIS ---
Intake Vital Signs 12/16/23 08:57 Height 5 ft 5 in Weight 215 lb BMI 35.8 BP 110/64 Blood Pressure Location Rt brachial Position Sitting Pulse 79 Pulse Source Pulse Oximeter Pulse Oximetry (%) 100 Oxygen Delivery Method Room Air Intake Visit Reasons: persistent cough Allergies dulaglutide [Trulicity] Allergy (Severe, Verified 12/16/23 09:13) Abdominal Pain levofloxacin Allergy (Severe, Verified 12/16/23 09:13) Nausea and Vomiting penicillamine Allergy (Severe, Verified 12/16/23 09:13) Rash morphine [MORPHINE] Allergy (Intermediate, Verified 12/16/23 09:13) RASH oxycodone [Oxycodone] Allergy (Intermediate, Verified 12/16/23 09:13) ITCHING Penicillins [PENICILLINS] Allergy (Intermediate, Verified 12/16/23 09:13) RASH Sulfa (Sulfonamide Antibiotics) Allergy (Intermediate, Verified 12/16/23 09:13) RASH/DIFFICULTY BREATHING Medication List - Last Reconciled 12/16/23 by Steph Lyon LPN albuterol sulfate 90 mcg/actuation 2 puffs inhalation Q2-4H PRN amitriptyline 25 mg PO BEDTIME apixaban (Eliquis) 5 mg PO BID arformoterol 2 mL inhalation BID 90 days aspirin 81 mg PO DAILY budesonide 0.5 mg (2 mL) inhalation BID cefpodoxime 200 mg PO BID cetirizine (Zyrtec) 10 mg PO DAILY cholecalciferol (vitamin D3) 125 mcg PO DAILY CPAP (CPAP Machine/Device) As directed diltiazem HCl 30 mg PO DIRECTED diltiazem HCl ER (DILT-XR) 240 mg PO DAILY diphenoxylate-atropine 2.5-0.025 mg 1 tab PO Q6-8H PRN empagliflozin (Jardiance) 25 mg PO DAILY epinephrine 0.3 mg IM ONCE flash glucose sensor As directed insulin lispro (Humalog KwikPen (U-100) Insulin) See Protocol sliding scale doses subcut TIDAC PRN levalbuterol HCl 1.25 mg (3 mL) inhalation BID 30 days levothyroxine 112 mcg PO DAILY lisinopril 10 mg PO DAILY metformin 1,000 mg PO BID montelukast 10 mg PO DAILY nebulizers As directed omalizumab (Xolair) mg subcut omalizumab (Xolair) mg subcut omeprazole 20 mg PO DAILY oseltamivir (Tamiflu) 75 mg PO BID 5 days pen needle, diabetic (BD Ultra-Fine Mini Pen Needle) As directed pyridoxine (vitamin B6) 100 mg PO DAILY roflumilast 500 mcg PO DAILY rosuvastatin 40 mg PO DAILY tiotropium bromide 2.5 mcg/actuation (Spiriva Respimat) 2 puffs inhalation DAILY 30 days zolpidem 10 mg PO BEDTIME PRN 30 days HPI persistent cough HPI Details cough, no wheezing, levabuterol daily, dyspnea, chset congstion. improvement in vhest tried mucinex minimla relief. last friday [facility] Medical History PONV (postoperative nausea and vomiting) Arthritis Diabetes Polycystic ovarian syndrome Rafa's thyroiditis GERD (gastroesophageal reflux disease) On anticoagulant therapy Atrial flutter Asthma-COPD overlap syndrome Insomnia BERENICE on CPAP Asthma Surgical History Hx of arthroscopy of knee History of Achilles tendon repair History of detached retina repair History of umbilical hernia repair History of cystoscopy History of lithotripsy Family History (Updated 08/20/23 @ 15:48 by FLAKO Nix) Mother No problems noted. Father No problems noted. Other Diabetes Social History Are you a primary resident care manager to a significant other at home: No Do you presently have visiting nurse or other home services: No Patient Tobacco Use Status: Never used Tobacco Physical Exam Vital Signs: Last Vital Signs Pulse 79 12/16/23 08:57 BP 110/64 12/16/23 08:57 Pulse Ox 100 12/16/23 08:57 Oxygen Delivery Method Room Air 12/16/23 08:57 BMI result Body Mass Index 35.8 Assessment & Plan Assessment & Plan (1) Asthma-COPD overlap syndrome: Code(s): J44.9 - Chronic obstructive pulmonary disease, unspecified (2) Bronchitis: Code(s): J40 - Bronchitis, not specified as acute or chronic Coding Diagnoses Asthma-COPD overlap syndrome J44.9 Bronchitis J40
== END 2023-12-16 09:46 | disposition home or self-care (01) ==
PROVIDERS: PCP Internal Medicine; Visit Provider Nurse Practitioner Family
DX: J44.9 Chronic obstructive pulmonary disease, unspecified (principal); J40 Bronchitis, not specified as acute or chronic
CPT/HCPCS: 99213

== ENCOUNTER → 2023-12-16 08:54 | Outpatient (BNVA) | payer OTHER, SELFPAY | PROVIDERS: PCP Internal Medicine; Visit Provider Nurse Practitioner Family ==

== ENCOUNTER 2024-02-24 15:42 | Outpatient (AMB) | payer OTHER, SELFPAY ==
[2024-02-24 15:46] VITALS: PULSE 89; O2SAT 97; BMI 36.1
--- NOTE | 2024-02-24 15:46 | A.OFFVIS_ITS ---
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: No Allergies dulaglutide [Trulicity] Allergy (Severe, Verified 12/16/23 09:13) Abdominal Pain levofloxacin Allergy (Severe, Verified 12/16/23 09:13) Nausea and Vomiting penicillamine Allergy (Severe, Verified 12/16/23 09:13) Rash morphine [MORPHINE] Allergy (Intermediate, Verified 12/16/23 09:13) RASH oxycodone [Oxycodone] Allergy (Intermediate, Verified 12/16/23 09:13) ITCHING Penicillins [PENICILLINS] Allergy (Intermediate, Verified 12/16/23 09:13) RASH Sulfa (Sulfonamide Antibiotics) Allergy (Intermediate, Verified 12/16/23 09:13) RASH/DIFFICULTY BREATHING HPI Comments Details: The patient is a 64-year-old woman with a known history of severe persistent asthma, obstructive sleep apnea on CPAP in an elevated right hemidiaphragm. 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 She has continued to Xolair every 2 weeks in her respiratory regimen which includes Dulera and Spiriva. She has not been using her nebulizer. She has been complaining of more shortness of breath and wheezing. The Xolair she has been on for the last 6-7 years. She feels that she still gets some response to it. Her special education inclusion teacher did talk to her about considering other agents in the near future. Wheezing still pretty significant on a daily basis. Which could be moderate to severe. She is also complaining of daytime drowsiness. She has been using the CPAP the whole night, but still waking up tired. We talked about requesting a download from her [employer] in adjusting her machine. She will bring her machine during the next follow-up. We also was evaluated at the [facility] ER for palpitations. She was not Sudafed at the time. She is no longer taking it. She did have a chest x-ray which was without any acute disease. Initially she responded very well to the Brovana and budesonide. However, her insurance did not cover the Brovana and therefore starter Perforomist. The performomist not working for her. She is getting more chest tightness and wheezing as . 03/18/2023 the patient is here for pulmonary follow-up visit. The patient is not feeling well. She started developing worsening cough chest congestion and shortness of breath. She did test for COVID-19 and she was negative. She is exposed to significant amount of kids and sick contacts. She has been also having increasing chest tightness. She is trying to avoid prednisone altogether. The patient also has been having issues with decreased energy. She feels very drain and significant dyspnea. She is not sure if is related to str ess. She is also having hard time sleeping. She needs her Ambien. Patient also has been dealing with significant amount of kidney stones. She is scheduled to undergo lithotripsy in the near future. Therefore, will go ahead and start antibiotics to treat her for a bronchitis or lower respiratory infection hopefully she can the better part of a seizure. If however she did not the patient will need to consider rescheduling minimize worsening symptoms. In the meantime the patient appears to be pale in appearance. Therefore will go ahead and request blood work including CBC to assess hemoglobin. the patient has been taking Eliquis for her atrial flutter. she reports paroxysmal episodes of the flutter. She is currently on diltiazem. She cannot use any beta blockers due to her significant asthma. 06/17/2023 the patient is here for pulmonary follow-up visit. Overall the patient has been doing fairly well. She still having a congested cough. With white phlegm. Moderate severity. She continues to have some shortness of breath and chest tightness but otherwise about the same. She had been on Brovana and was switched over to Xopenex because of tremulous and palpitations and increased heart rate. However, the patient did not see any significant change in the heart rate and her breathing has been little bit worse. Therefore she rather go back on the Brovana and she will continue with the budesonide. I also encouraged her to continue with Spiriva as well. Will treat her with some azithromycin for 5 days for bronchitis. She otherwise has been doing okay she continues on the Eliquis for her atrial flutter. She also continues on CPAP therapy. She continues on Xolair. If she continues to be symptomatic she will talk to her special education inclusion teacher regarding switching her over to a different agent such as Dupixent. 10/22/2023 the patient is here for a pulmonary follow-up visit. Since we last spoke back in the end of August she did undergo knee arthroscopy findings she had no cartilage in her knee. Was recommended that she consider getting a knee replacement. She is going to think about it for now. In the meantime after surgery she did develop increasing cough and chest congestion. She noticed that her sputum was fall and smell and also was colored. She had just completed antibiotics several weeks before and therefore she opted on trying to hold off on any antibiotics. Her symptoms did initially get a little better but then got worse again. Moderate severity. She also complains of some slight discomfort in the left lower chest area that comes and goes. On examination she does have some fine scattered crackles in the left base likely atelectasis although can not rule out early pneumonia. The patient will be started on Vantin since she is allergic to penicillin she will monitor closely for any allergic reactions. Her allergies to penicillin will basically simple rash so therefore not too concerning. No significant wheezing on examination so therefore she does not any prednisone. The patient will continue with current respiratory therapy as well. I did encourage her to cytotechnologist/cytology supervisor Mucinex and to use her nebulizer for mucus clearance and for chest physical therapy. If she has no better while on the antibiotics the patient should come in for an x-ray. 02/24/2024 the patient is here for pulmonary. Overall she is doing better. Ashlyn ral months ago she did end up with the flu. She had elevated fevers and has some delirium. Afterwards she did have a postviral bacterial infection. She was evaluated and treated in our office. She did well. Now she is back to her baseline. She is doing all the nebulized therapy and allergy medicines. She is currently well to the therapy. She has not had any any need for more prednisone or antibiotics. She continues on the Xolair injections. She is seen by Allergy. 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 She hopes that when she has not exposed to some and sickness from the kids and other exposures hopefully that she is going to feel better. We can reassess her then when she comes back in 4-6 months to see if we can deescalate some her care ideally to switch over to inhaler therapy to minimize nebulizer treatments. In the meantime she continues uses CPAP every night CPAP therapy continues to be affecting beneficial. She does use it for more than 4 hours a night. She is currently using the Ilana view mask which she finds fits well but is not perfect. [facility] Medical History PONV (postoperative nausea and vomiting) Arthritis Diabetes Polycystic ovarian syndrome Rafa's thyroiditis GERD (gastroesophageal reflux disease) On anticoagulant therapy Atrial flutter Asthma-COPD overlap syndrome Insomnia BERENICE on CPAP Asthma Surgical History Hx of arthroscopy of knee History of Achilles tendon repair History of detached retina repair History of umbilical hernia repair History of cystoscopy History of lithotripsy Family History (Updated 08/20/23 @ 15:48 by FLAKO Nix) Mother No problems noted. Father No problems noted. Other Diabetes Social History (Updated 12/16/23 @ 09:14 by Steph Lyon LPN) Are you a primary care transition mgr to a significant other at home: No Do you presently have visiting nurse or other home services: No Patient Tobacco Use Status: Never used Tobacco Review of Systems Const Reports daytime sleepiness, Reports difficulty sleeping and Denies night sweats ENT Denies change in voice, Denies lip swelling, Denies mouth pain, Reports nasal congestion, Reports nasal discharge and Denies tongue swelling Card Reports chest pain, Denies palpitations, Denies dyspnea and Reports dyspnea on exertion Resp Denies change in phlegm color, Denies chest congestion, Reports cough, Denies hemoptysis, Denies dyspnea, Reports dyspnea on exertion and Reports wheezing GI Denies abdominal pain, Denies GI cramping, Reports dyspepsia and Reports diarrhea Musc Reports as per HPI, Reports abnormal gait, Reports arthralgias, Reports joint swelling and Reports limited range of motion Neuro Denies Neuro-related abnormal movements and Reports abnormal gait Psych Denies no additional complaints Endo Denies palpitations Mason/Lymph Denies easy bleeding and Denies lymphadenopathy Aller/Immun Denies lip swelling, Denies tongue swelling and Reports wheezing Physical Exam Vital Signs: Last Vital Signs Pulse 89 02/24/24 15:46 Pulse Ox 97 02/24/24 15:46 Oxygen Delivery Method Room Air 02/24/24 15:46 BMI result Body Mass Index 36.1 Const General: alert Eyes Pupils: Equal, round and reactive pupils present Neck Neck: Yes normal visual inspection, Yes full ROM and Yes no lymphadenopathy Chest Chest palpation & inspection: normal inspection of the chest Resp Auscultation: crackles on the left at the base, no rhonchi, no wheezes and diminished lung sounds Cardio Rate: regular rate Rhythm: regular rhythm Heart sounds: S1 normal heart sound present and S2 normal heart sound present GI Palpation (GI): Soft to palpation and nontender Auscultation: normal bowel sounds Skin General skin exam: rashes and/or lesions noted Neuro Cranial nerves: Yes Equal, round and reactive pupils present Assessment & Plan Assessment & Plan (1) BERENICE on CPAP: Code(s): G47.33 - Obstructive sleep apnea (adult) (pediatric); Z99.89 - Dependence on other enabling machines and devices Category: Medical (2) Asthma: Code(s): J45.909 - Unspecified asthma, uncomplicated Category: Medical Qualifiers: Asthma complication type: uncomplicated Asthma persistence: unspecified Asthma severity: moderate Qualified Code(s): J45.909 - Unspecified asthma, uncomplicated (3) Insomnia: Code(s): G47.00 - Insomnia, unspecified Category: Medical Qualifiers: Insomnia type: primary Qualified Code(s): F51.01 - Primary insomnia (4) Asthma-COPD overlap syndrome: Code(s): J44.9 - Chronic obstructive pulmonary disease, unspecified Category: Medical (5) Bronchitis: Code(s): J40 - Bronchitis, not specified as acute or chronic Category: Medical (6) Atelectasis: Code(s): J98.11 - Atelectasis Category: Medical Plan Continue APAP therapy (regional) Ilana view continue Brovana continue BUdesonide Xopened BID and as needed continue Spiriva Continue Singulair Conitnue Ambien at night Continue higher Xolair 300mg 2/month, consider Dupixent if no better Needs to continue the Daliresp 500mcg F/U 6 months Coding Level of Care Code Est Pt Level 4 (77404) Diagnoses BERENICE on CPAP G47.33; Z99.89 Moderate asthma without complication, unspecified whether persistent J45.909 Asthma complication type: uncomplicated Asthma persistence: unspecified Asthma severity: moderate Primary insomnia F51.01 Insomnia type: primary Asthma-COPD overlap syndrome J44.9 Bronchitis J40 Atelectasis J98.11 Time Spent (min) 17
== END 2024-02-24 16:05 | disposition home or self-care (01) ==
PROVIDERS: PCP Internal Medicine; Visit Provider Hospitalist
DX: G47.33 Obstructive sleep apnea (adult) (pediatric) (principal); Z99.89 Dependence on other enabling machines and devices; J45.909 Unspecified asthma, uncomplicated; F51.01 Primary insomnia; J98.11 Atelectasis
CPT/HCPCS: 99214

== ENCOUNTER → 2024-02-24 15:42 | Outpatient (BNVA) | payer OTHER, SELFPAY | PROVIDERS: PCP Internal Medicine; Visit Provider Hospitalist | DX: J45.909 Unspecified asthma, uncomplicated (principal); J44.9 Chronic obstructive pulmonary disease, unspecified ==

== ENCOUNTER 2024-03-23 07:48 | Outpatient (REF) | payer OTHER, SELFPAY ==
--- NOTE | ~2024-03-23 | CT_ITS ---
EXAMINATION: CT ABDOMEN AND PELVIS WITHOUT CONTRAST CLINICAL INFORMATION: Renal calculi. COMPARISON: CT abdomen and pelvis 04/02/2023, 11/19/2021. TECHNIQUE: Multidetector volumetric imaging was performed from the superior aspect of the liver through the pubic symphysis. Sagittal and coronal reformatted images were obtained on the technologist's workstation. This CT examination was performed using dose optimization techniques as appropriate, variously including the following: *Automated exposure control *Adjustment of mA and/or kV according to patient size (this includes techniques or standardized protocols for targeted exams where dose is matched to indication/reason for exam; i.e. extremities or head) *Use of iterative reconstruction technique DLP: 695 mGy-cm FINDINGS: LUNG BASES: The visualized lung bases are unremarkable aside from the presence of coronary calcium LIVER, GALLBLADDER, AND BILIARY TREE: The liver is enlarged measuring 21.2 cm in greatest length with a slightly lobular border and decreased attenuation consistent with hepatic steatosis. No focal hepatic lesion or biliary ductal dilatation is present. The gallbladder is unremarkable with no evidence of radiopaque gallstones, gallbladder wall thickening, or obvious pericholecystic inflammatory changes. PANCREAS: Unremarkable. SPLEEN: Spleen is enlarged at 12.9 cm. ADRENAL GLANDS: Unremarkable. KIDNEYS AND URETERS: The kidneys are normal in size, shape, and attenuation. A 3 mm calculus is present at the lower pole of the right kidney, unchanged from 04/02/2023. Faint calcification is seen at the lower pole of the left kidney. At the time of the prior 04/02/2023 study, 3 calculi were seen in the left kidney. The right renal calculus measures 412 Hounsfield units and is 14 cm from the posterior axillary line. No hydronephrosis, hydroureter, or ureteral calculi seen. No perinephric stranding. BLADDER: Unremarkable. GASTROINTESTINAL TRACT: The small and large bowel are unremarkable. The appendix is unremarkable. ABDOMINAL WALL: No significant hernia is appreciated. LYMPH NODES: Some small retroperitoneal lymph nodes are seen the largest in the aortocaval region measuring 0.9 cm in short axis dimension. There is no retroperitoneal lymphadenopathy. VASCULAR: Calcific atherosclerotic changes are present in the aorta and iliofemoral vessels. There is no evidence of an abdominal aortic aneurysm. PELVIC VISCERA: The uterus and adnexa are unremarkable. OSSEOUS STRUCTURES: Degenerative changes are present throughout the spine most marked at L4-L5. No bony destructive lesions. There is some enthesopathy present at the ischial tuberosities. CT/CT abdomen pelvis wo IV con IMPRESSION: 1. Bilateral nonobstructing renal calculi. 2. Enlarged fatty liver with mild splenomegaly. 3. Other incidental findings as described above. Fleischner guidelines were followed.
== END 2024-03-23 07:49 | disposition home or self-care (01) ==
LOC: HO.CT 07:48
PROVIDERS: PCP Internal Medicine; Visit Provider Urology
DX: N20.0 Calculus of kidney (principal)
CPT/HCPCS: 74176

== ENCOUNTER 2024-08-24 13:14 | Outpatient (AMB) | payer OTHER, SELFPAY ==
[2024-08-24 13:19] VITALS: BP 128/60; PULSE 88; O2SAT 98; BMI 35.4
--- NOTE | 2024-08-24 13:19 | MHC.OFFVIS ---
Vital Signs 08/24/24 13:19 Height 5 ft 5 in Weight 212 lb 11.937 oz BMI 35.4 BP 128/60 Blood Pressure Location Lt brachial Position Sitting Pulse 88 Pulse Source Pulse Oximeter Pulse Oximetry (%) 98 Oxygen Delivery Method Room Air Intake Visit Reasons: Asthma Director Special Education Required: No Allergies dulaglutide [Trulicity] Allergy (Severe, Verified 08/24/24 13:22) Abdominal Pain levofloxacin Allergy (Severe, Verified 08/24/24 13:22) Nausea and Vomiting penicillamine Allergy (Severe, Verified 08/24/24 13:22) Rash morphine [MORPHINE] Allergy (Intermediate, Verified 08/24/24 13:22) RASH oxycodone [Oxycodone] Allergy (Intermediate, Verified 08/24/24 13:22) ITCHING Penicillins [PENICILLINS] Allergy (Intermediate, Verified 08/24/24 13:22) RASH Sulfa (Sulfonamide Antibiotics) Allergy (Intermediate, Verified 08/24/24 13:22) RASH/DIFFICULTY BREATHING HPI Comments Details: The patient is a 64-year-old woman with a known history of severe persistent asthma, obstructive sleep apnea on CPAP in an elevated right hemidiaphragm. 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 She has continued to Xolair every 2 weeks in her respiratory regimen which includes Dulera and Spiriva. She has not been using her nebulizer. She has been complaining of more shortness of breath and wheezing. The Xolair she has been on for the last 6-7 years. She feels that she still gets some response to it. Her mechanical manufacturing technician did talk to her about considering other agents in the near future. Wheezing still pretty significant on a daily basis. Which could be moderate to severe. She is also complaining of daytime drowsiness. She has been using the CPAP the whole night, but still waking up tired. We talked about requesting a download from her [employer] in adjusting her machine. She will bring her machine during the next follow-up. We also was evaluated at the [facility] ER for palpitations. She was not Sudafed at the time. She is no longer taking it. She did have a chest x-ray which was without any acute disease. Initially she responded very well to the Brovana and budesonide. However, her insurance did not cover the Brovana and therefore starter Perforomist. The performomist not working for her. She is getting more chest tightness and wheezing as . 03/18/2023 the patient is here for pulmonary follow-up visit. The patient is not feeling well. She started developing worsening cough chest congestion and shortness of breath. She did test for COVID-19 and she was negative. She is exposed to significant amount of kids and sick contacts. She has been also having increasing chest tightness. She is trying to avoid prednisone altogether. The patient also has been having issues with decreased energy. She feels very drain and significant dyspnea. She is not sure if is related to stress. She is also having hard time sleeping. She needs her Ambien. Patient also has been dealing with significant amount of kidney stones. She is scheduled to undergo lithotripsy in the near future. Therefore, will go ahead and start antibiotics to treat her for a bronchitis or lower respiratory infection hopefully she can the better part of a seizure. If however she did not the patient will need to consider rescheduling minimize worsening symptoms. In the meantime the patient appears to be pale in appearance. Therefore will go ahead and request blood work including CBC to assess hemoglobin. the patient has been taking Eliquis for her atrial flutter. she reports paroxysmal episodes of the flutter. She is currently on diltiazem. She cannot use any beta blockers due to her significant asthma. 06/17/2023 the patient is here for pulmonary follow-up visit. Overall the patient has been doing fairly well. She still having a congested cough. With white phlegm. Moderate severity. She continues to have some shortness of breath and chest tightness but otherwise about the same. She had been on Brovana and was switched over to Xopenex because of tremulous and palpitations and increased heart rate. However, the patient did not see any significant change in the heart rate and her breathing has been little bit worse. Therefore she rather go back on the Brovana and she will continue with the budesonide. I also encouraged her to continue with Spiriva as well. Will treat her with some azithromycin for 5 days for bronchitis. She otherwise has been doing okay she continues on the Eliquis for her atrial flutter. She also continues on CPAP therapy. She continues on Xolair. If she continues to be symptomatic she will talk to her mechanical manufacturing technician regarding switching her over to a different agent such as Dupixent. 10/22/2023 the patient is here for a pulmonary follow-up visit. Since we last spoke back in the end of August she did undergo knee arthroscopy findings she had no cartilage in her knee. Was recommended that she consider getting a knee replacement. She is going to think about it for now. In the meantime after surgery she did develop increasing cough and chest congestion. She noticed that her sputum was fall and smell and also was colored. She had just completed antibiotics several weeks before and therefore she opted on trying to hold off on any antibiotics. Her symptoms did initially get a little better but then got worse again. Moderate severity. She also complains of some slight discomfort in the left lower chest area that comes and goes. On examination she does have some fine scattered crackles in the left base likely atelectasis although can not rule out early pneumonia. The patient will be started on Vantin since she is allergic to penicillin she will monitor closely for any allergic reactions. Her allergies to penicillin will basically simple rash so therefore not too concerning. No significant wheezing on examination so therefore she does not any prednisone. The patient will continue with current respiratory therapy as well. I did encourage her to excelsior picker Mucinex and to use her nebulizer for mucus clearance and for chest physical therapy. If she has no better while on the antibiotics the patient should come in for an x-ray. 02/24/2024 the patient is here for pulmonary. Overall she is doing better. Several months ago she did end up with the flu. She had elevated fevers and has some delirium. Afterwards she did have a postviral bacterial infection. She was evaluated and treated in our office. She did well. Now she is back to her baseline. She is doing all the nebulized therapy and allergy medicines. She is currently well to the therapy. She has not had any any need for more prednisone or antibiotics. She continues on the Xolair injections. She is seen by Allergy. 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 She hopes that when she has not exposed to some and sickness from the kids and other exposures hopefully that she is going to feel better. We can reassess her then when she comes back in 4-6 months to see if we can deescalate some her care ideally to switch over to inhaler therapy to minimize nebulizer treatments. In the meantime she continues uses CPAP every night CPAP therapy continues to be affecting beneficial. She does use it for more than 4 hours a night. She is currently using the Ilana view mask which she finds fits well but is not perfect. 08/24/2024 the patient is here for a pulmonary follow-up visit. Overall the patient is doing okay. She finally retired. She is having the stress in her life and does helping her breathing. 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 She would like to stay busy. She is also swimming on a regular basis. The patient has continue her Xolair although it has been delayed. She is not sure how affective disorder has been for her. She can consider rechecking her IgE levels and eosinophils in the future to see if she is a good candidate for Dupixent. In the meantime we are going to try to simplify her respiratory regimen. She does take multiple inhalers and medications. Based on the medications she is taking will try to decrease the budesonide to once a day as a trial to see if we can minimize the degree of steroids specially with a persistently elevated blood sugars. In addition to that we were wondering about other medications such as Singulair. This is something she can use seasonally depending on the season of her significant allergies. She continues use her CPAP. CPAP therapy continues to be affecting beneficial and she does use it for more than 4 hours a night. [facility] Medical History PONV (postoperative nausea and vomiting) Arthritis Diabetes Polycystic ovarian syndrome Rafa's thyroiditis GERD (gastroesophageal reflux disease) On anticoagulant therapy Atrial flutter Asthma-COPD overlap syndrome Insomnia BERENICE on CPAP Asthma Surgical History Hx of arthroscopy of knee History of Achilles tendon repair History of detached retina repair History of umbilical hernia repair History of cystoscopy History of lithotripsy Family History (Updated 08/20/23 @ 15:48 by FLAKO Nix) Mother No problems noted. Father No problems noted. Other Diabetes Social History (Updated 12/16/23 @ 09:14 by Steph Lyon LPN) Are you a primary respiratory care practitioner to a significant other at home: No Do you presently have visiting nurse or other home services: No Patient Tobacco Use Status: Never used Tobacco Review of Systems Const Reports daytime sleepiness, Reports difficulty sleeping and Denies night sweats ENT Denies change in voice, Denies lip swelling, Denies mouth pain, Reports nasal congestion, Reports nasal discharge and Denies tongue swelling Card Reports chest pain, Denies palpitations, Denies dyspnea and Reports dyspnea on exertion Resp Denies change in phlegm color, Denies chest congestion, Reports cough, Denies hemoptysis, Denies dyspnea, Reports dyspnea on exertion and Reports wheezing GI Denies abdominal pain, Denies GI cramping, Reports dyspepsia and Reports diarrhea Musc Reports as per HPI, Reports abnormal gait, Reports arthralgias, Reports joint swelling and Reports limited range of motion Neuro Denies Neuro-related abnormal movements and Reports abnormal gait Psych Denies no additional complaints Endo Denies palpitations Mason/Lymph Denies easy bleeding and Denies lymphadenopathy Aller/Immun Denies lip swelling, Denies tongue swelling and Reports wheezing Physical Exam Vital Signs: Last Vital Signs Pulse 88 08/24/24 13:19 BP 128/60 08/24/24 13:19 Pulse Ox 98 08/24/24 13:19 Oxygen Delivery Method Room Air 08/24/24 13:19 BMI result Body Mass Index 35.4 Const General: alert Eyes Pupils: Equal, round and reactive pupils present Neck Neck: Yes normal visual inspection, Yes full ROM and Yes no lymphadenopathy Chest Chest palpation & inspection: normal inspection of the chest Resp Auscultation: crackles on the left at the base, no rhonchi, no wheezes and diminished lung sounds Cardio Rate: regular rate Rhythm: regular rhythm Heart sounds: S1 normal heart sound present and S2 normal heart sound present GI Palpation (GI): Soft to palpation and nontender Auscultation: normal bowel sounds Skin General skin exam: rashes and/or lesions noted Neuro Cranial nerves: Yes Equal, round and reactive pupils present Assessment & Plan Assessment & Plan (1) BERENICE on CPAP: Code(s): G47.33 - Obstructive sleep apnea (adult) (pediatric); Z99.89 - Dependence on other enabling machines and devices Category: Medical (2) Asthma: Code(s): J45.909 - Unspecified asthma, uncomplicated Category: Medical Qualifiers: Asthma complication type: uncomplicated Asthma persistence: unspecified Asthma severity: moderate Qualified Code(s): J45.909 - Unspecified asthma, uncomplicated (3) Insomnia: Code(s): G47.00 - Insomnia, unspecified Category: Medical Qualifiers: Insomnia type: primary Qualified Code(s): F51.01 - Primary insomnia (4) Asthma-COPD overlap syndrome: Code(s): J44.9 - Chronic obstructive pulmonary disease, unspecified Category: Medical (5) Atelectasis: Code(s): J98.11 - Atelectasis Category: Medical Plan Continue APAP therapy (regional) Ilana view continue Brovana continue BUdesonide, decrease daily Xopened BID and as needed continue Spiriva Continue Singulair Conitnue Ambien at night Continue higher Xolair 375mg 2/month, consider Dupixent if no better Needs to continue the Daliresp 500mcg F/U 6 months Coding Level of Care Code Est Pt Level 4 (26513) Diagnoses BERENICE on CPAP G47.33; Z99.89 Moderate asthma without complication, unspecified whether persistent J45.909 Asthma complication type: uncomplicated Asthma persistence: unspecified Asthma severity: moderate Primary insomnia F51.01 Insomnia type: primary Asthma-COPD overlap syndrome J44.9 Atelectasis J98.11 Time Spent (min) 16
== END 2024-08-24 13:50 | disposition home or self-care (01) ==
LOC: HO.HPS 13:15
PROVIDERS: PCP Internal Medicine; Visit Provider Hospitalist
DX: G47.33 Obstructive sleep apnea (adult) (pediatric) (principal); Z99.89 Dependence on other enabling machines and devices; J45.909 Unspecified asthma, uncomplicated; F51.01 Primary insomnia; J44.9 Chronic obstructive pulmonary disease, unspecified; J98.11 Atelectasis
CPT/HCPCS: 99214

== ENCOUNTER → 2024-08-24 13:14 | Outpatient (BNVA) | payer OTHER, SELFPAY | PROVIDERS: PCP Internal Medicine; Visit Provider Hospitalist | DX: J45.909 Unspecified asthma, uncomplicated (principal); J44.9 Chronic obstructive pulmonary disease, unspecified ==

== ENCOUNTER 2024-09-20 14:23 | Outpatient (AMB) | payer OTHER, SELFPAY ==
[2024-09-20 14:33] VITALS: BP 142/70; PULSE 105; O2SAT 97; BMI 34.7
--- NOTE | 2024-09-20 14:33 | A.OFFVIS_ITS ---
Vital Signs 09/20/24 14:33 Height 5 ft 5 in Weight 208 lb 5.389 oz BMI 34.7 BP 142/70 H Blood Pressure Location Rt brachial Position Sitting Pulse 105 H Pulse Source Pulse Oximeter Pulse Oximetry (%) 97 Oxygen Delivery Method Room Air Intake Visit Reasons: Cough prod with green mucus Allergies dulaglutide [Trulicity] Allergy (Severe, Verified 09/20/24 14:36) Abdominal Pain levofloxacin Allergy (Severe, Verified 09/20/24 14:36) Nausea and Vomiting penicillamine Allergy (Severe, Verified 09/20/24 14:36) Rash morphine [MORPHINE] Allergy (Intermediate, Verified 09/20/24 14:36) RASH oxycodone [Oxycodone] Allergy (Intermediate, Verified 09/20/24 14:36) ITCHING Penicillins [PENICILLINS] Allergy (Intermediate, Verified 09/20/24 14:36) RASH Sulfa (Sulfonamide Antibiotics) Allergy (Intermediate, Verified 09/20/24 14:36) RASH/DIFFICULTY BREATHING HPI HPI Cough prod with green mucus: Details: Shala is a pleasant 63 year old female, never smoker, with underlying asthma COPD overlap syndrome, atrial flutter and GERD. At baseline, she is moderately controlled on budesonide, brovana, spiriva, singulair, xopenex neb, daliresp and xolair. She is under the care of Dr. Oliva and presents today for an acute visit. She reports chest congestion and productive cough with greenish brown sputum, chest tightness, wheezing as well as dyspnea that has been progressively worsening since Friday. She has been using levalbuterol PRN and mucinex with minimal effect. She also reports feeling feverish over the weekend. She denies any sick contacts. Up to date with vaccinations. [facility] Medical History PONV (postoperative nausea and vomiting) Arthritis Diabetes Polycystic ovarian syndrome Rafa's thyroiditis GERD (gastroesophageal reflux disease) On anticoagulant therapy Atrial flutter Asthma-COPD overlap syndrome Insomnia BERENICE on CPAP Asthma Surgical History Hx of arthroscopy of knee History of Achilles tendon repair History of detached retina repair History of umbilical hernia repair History of cystoscopy History of lithotripsy Family History (Updated 08/20/23 @ 15:48 by FLAKO Nix) Mother No problems noted. Father No problems noted. Other Diabetes Social History Are you a primary child day care center worker to a significant other at home: No Do you presently have visiting nurse or other home services: No Patient Tobacco Use Status: Never used Tobacco Review of Systems Const Denies chills, Denies excessive sweating, Denies headache(s) and Denies night sweats Eyes Denies dry eyes, Denies irritation and Denies itchy eyes ENT Reports Normal hearing present, Denies headache(s), Denies nasal congestion, Denies nasal discharge, Denies post nasal drip and Denies sore throat Card Denies chest pain, Denies chest pain at rest, Denies chest pain with activity, Denies claudication, Denies leg edema, Reports dyspnea, Denies orthopnea and Denies paroxysmal nocturnal dyspnea Resp Reports chest congestion, Reports cough, Denies pain on inspiration, Denies pain with cough, Reports dyspnea and Denies stridor Musc Denies myalgias Neuro Reports Normal hearing present and Denies headache(s) Endo Denies excessive sweating Mason/Lymph Denies lymphadenopathy Aller/Immun Denies itchy eyes and Denies seasonal rhinorrhea Physical Exam Vital Signs: Last Vital Signs Pulse 105 H 09/20/24 14:33 BP 142/70 H 09/20/24 14:33 Pulse Ox 97 09/20/24 14:33 Oxygen Delivery Method Room Air 09/20/24 14:33 BMI result Body Mass Index 34.7 Const General: cooperative, no acute distress, well developed and alert Nutritional Appearance: obese Orientation/consciousness: patient oriented x3 Limitations: no limitations HEENT Head: Yes normal to inspection, Yes normocephalic and Yes atraumatic Ears: hearing grossly normal bilaterally and external ears normal Eyes General: appearance normal, both eyes and all related structures Eyelids: Yes eyelids normal Sclerae: sclerae normal EOM: EOMs intact bilaterally Neck Neck: Yes normal visual inspection and Yes no lymphadenopathy Lymphatic: no lymphadenopathy noted Chest Chest palpation & inspection: normal inspection of the chest Resp Other: harsh cough throughout visit, worse with respiratory exam, rhonchi throughout Effort & Inspection: normal respiratory effort, able to speak in complete sentences, no audible wheezes, no stridor, not tachypneic, no tripod positioning and no use of accessory muscles Cardio Jugular venous distension: no JVD Rate: regular rate Rhythm: regular rhythm Skin Other: warm, dry General skin exam: no rashes or lesions noted Neuro General: patient oriented x3 Cranial nerves: Yes Normal hearing present Cognition (Neuro): normal cognition Gait exam (Neuro): Normal gait present Extrem General: Yes normal to inspection, Yes capillary refill normal, Yes no clubbing, cyanosis or edema and Yes no pedal edema Psych Appearance: grossly normal and well kempt Speech and movement: Normal speech and movement present and Clear speech present Affect: normal affect Attitude: cooperative Thought process: Normal thought process present Thought content: Normal thought content present Insight: Good insight present (Psych) Judgement: Good judgement present (Psych) Assessment & Plan Assessment & Plan (1) Asthma-COPD overlap syndrome: Code(s): J44.9 - Chronic obstructive pulmonary disease, unspecified Category: Medical (2) Bronchitis: Code(s): J40 - Bronchitis, not specified as acute or chronic Category: Medical Plan Will treat bronchitic symptoms with doxycyline and prednisone. Patient is aware if symptoms do not improve to call the office and if they worsen to seek emergent care. ?Will follow up with Dr. Oliva for regularly scheduled appointment or sooner if needed. All questions were answered and patient is in agreement of plan. Medications: New doxycycline hyclate 100 mg PO BID 14 caps 0RF prednisone 40 mg (2 x 20 mg) PO DAILY 10 tabs 0RF Coding Level of Care Code Est Pt Level 4 (22942) Diagnoses Asthma-COPD overlap syndrome J44.9 Bronchitis J40
== END 2024-09-20 15:39 | disposition home or self-care (01) ==
PROVIDERS: PCP Internal Medicine; Visit Provider Nurse Practitioner Family
DX: J44.9 Chronic obstructive pulmonary disease, unspecified (principal); J40 Bronchitis, not specified as acute or chronic
CPT/HCPCS: 99214

== ENCOUNTER 2025-02-22 14:11 | Outpatient (AMB) | payer OTHER, SELFPAY ==
--- NOTE | 2025-02-22 14:15 | MHC.OFFVIS ---
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 Required: No Accompanied by: Self / Same As Patient Allergies dulaglutide [Trulicity] Allergy (Severe, Verified 02/22/25 14:18) Abdominal Pain levofloxacin Allergy (Severe, Verified 02/22/25 14:18) Nausea and Vomiting penicillamine Allergy (Severe, Verified 02/22/25 14:18) Rash morphine [MORPHINE] Allergy (Intermediate, Verified 02/22/25 14:18) RASH oxycodone [Oxycodone] Allergy (Intermediate, Verified 02/22/25 14:18) ITCHING Penicillins [PENICILLINS] Allergy (Intermediate, Verified 02/22/25 14:18) RASH Sulfa (Sulfonamide Antibiotics) Allergy (Intermediate, Verified 02/22/25 14:18) RASH/DIFFICULTY BREATHING HPI Comments Details: The patient is a 65-year-old woman with a known history of severe persistent asthma, obstructive sleep apnea on CPAP in an elevated right hemidiaphragm. 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 She has continued to Xolair every 2 weeks in her respiratory regimen which includes Dulera and Spiriva. She has not been using her nebulizer. She has been complaining of more shortness of breath and wheezing. The Xolair she has been on for the last 6-7 years. She feels that she still gets some response to it. Her laser beam machine operator did talk to her about considering other agents in the near future. Wheezing still pretty significant on a daily basis. Which could be moderate to severe. She is also complaining of daytime drowsiness. She has been using the CPAP the whole night, but still waking up tired. We talked about requesting a download from her [facility] in adjusting her machine. She will bring her machine during the next follow-up. We also was evaluated at the [facility] for palpitations. She was not Sudafed at the time. She is no longer taking it. She did have a chest x-ray which was without any acute disease. Initially she responded very well to the Brovana and budesonide. However, her insurance did not cover the Brovana and therefore starter Perforomist. The performomist not working for her. She is getting more chest tightness and wheezing as . 03/18/2023 the patient is here for pulmonary follow-up visit. The patient is not feeling well. She started developing worsening cough chest congestion and shortness of breath. She did test for COVID-19 and she was negative. She is exposed to significant amount of kids and sick contacts. She has been also having increasing chest tightness. She is trying to avoid prednisone altogether. The patient also has been having issues with decreased energy. She feels very drain and significant dyspnea. She is not sure if is related to stress. She is also having hard time sleeping. She needs her Ambien. Patient also has been dealing with significant amount of kidney stones. She is scheduled to undergo lithotripsy in the near future. Therefore, will go ahead and start antibiotics to treat her for a bronchitis or lower respiratory infection hopefully she can the better part of a seizure. If however she did not the patient will need to consider rescheduling minimize worsening symptoms. In the meantime the patient appears to be pale in appearance. Therefore will go ahead and request blood work including CBC to assess hemoglobin. the patient has been taking Eliquis for her atrial flutter. she reports paroxysmal episodes of the flutter. She is currently on diltiazem. She cannot use any beta blockers due to her significant asthma. 06/17/2023 the patient is here for pulmonary follow-up visit. Overall the patient has been doing fairly well. She still having a congested cough. With white phlegm. Moderate severity. She continues to have some shortness of breath and chest tightness but otherwise about the same. She had been on Brovana and was switched over to Xopenex because of tremulous and palpitations and increased heart rate. However, the patient did not see any significant change in the heart rate and her breathing has been little bit worse. Therefore she rather go back on the Brovana and she will continue with the budesonide. I also encouraged her to continue with Spiriva as well. Will treat her with some azithromycin for 5 days for bronchitis. She otherwise has been doing okay she continues on the Eliquis for her atrial flutter. She also continues on CPAP therapy. She continues on Xolair. If she continues to be symptomatic she will talk to her laser beam machine operator regarding switching her over to a different agent such as Dupixent. 10/22/2023 the patient is here for a pulmonary follow-up visit. Since we last spoke back in the end of August she did undergo knee arthroscopy findings she had no cartilage in her knee. Was recommended that she consider getting a knee replacement. She is going to think about it for now. In the meantime after surgery she did develop increasing cough and chest congestion. She noticed that her sputum was fall and smell and also was colored. She had just completed antibiotics several weeks before and therefore she opted on trying to hold off on any antibiotics. Her symptoms did initially get a little better but then got worse again. Moderate severity. She also complains of some slight discomfort in the left lower chest area that comes and goes. On examination she does have some fine scattered crackles in the left base likely atelectasis although can not rule out early pneumonia. The patient will be started on Vantin since she is allergic to penicillin she will monitor closely for any allergic reactions. Her allergies to penicillin will basically simple rash so therefore not too concerning. No significant wheezing on examination so therefore she does not any prednisone. The patient will continue with current respiratory therapy as well. 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 If she has no better while on the antibiotics the patient should come in for an x-ray. 02/24/2024 the patient is here for pulmonary. Overall she is doing better. Several months ago she did end up with the flu. She had elevated fevers and has some delirium. Afterwards she did have a postviral bacterial infection. She was evaluated and treated in our office. She did well. Now she is back to her baseline. She is doing all the nebulized therapy and allergy medicines. She is currently well to the therapy. She has not had any any need for more prednisone or antibiotics. She continues on the Xolair injections. She is seen by Allergy. 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 She hopes that when she has not exposed to some and sickness from the kids and other exposures hopefully that she is going to feel better. We can reassess her then when she comes back in 4-6 months to see if we can deescalate some her care ideally to switch over to inhaler therapy to minimize nebulizer treatments. In the meantime she continues uses CPAP every night CPAP therapy continues to be affecting beneficial. She does use it for more than 4 hours a night. She is currently using the Ilana view mask which she finds fits well but is not perfect. 08/24/2024 the patient is here for a pulmonary follow-up visit. Overall the patient is doing okay. She finally retired. She is having the stress in her life and does helping her breathing. 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 She would like to stay busy. She is also swimming on a regular basis. The patient has continue her Xolair although it has been delayed. She is not sure how affective disorder has been for her. She can consider rechecking her IgE levels and eosinophils in the future to see if she is a good candidate for Dupixent. In the meantime we are going to try to simplify her respiratory regimen. She does take multiple inhalers and medications. Based on the medications she is taking will try to decrease the budesonide to once a day as a trial to see if we can minimize the degree of steroids specially with a persistently elevated blood sugars. In addition to that we were wondering about other medications such as Singulair. This is something she can use seasonally depending on the season of her significant allergies. She continues use her CPAP. CPAP therapy continues to be affecting beneficial and she does use it for more than 4 hours a night. 02/22/2025 the patient is here for a pulmonary follow-up visit. She has had a hard time for the beginning of the winter when she had significant sickness. She did have a chest x-ray in November at [facility] which I personally reviewed. Initially was read as normal but she did have some haziness patchy opacity in the right middle lobe areas suggesting of an infiltrate likely bronchopneumonia. The patient does have allergy so therefore she is limited with antibiotic options but cefpodoxime will be an option for her to using the future. In the meantime she continues use her respiratory therapy as prescribed. She continues to receive Xolair. She is considering Dupixent. I believe Dupixent would be a good option for her. The patient also has been using her CPAP. CPAP therapy has been affecting beneficial and she has been getting supplies through [facility]. Although now seems like she can not tolerate the pressures in the machine is older more than 5 years. Seems like the therapy in the pressure are not effective any longer. Will go ahead and request a replacement machine at this time. [facility] Medical History PONV (postoperative nausea and vomiting) Arthritis Diabetes Polycystic ovarian syndrome Rafa's thyroiditis GERD (gastroesophageal reflux disease) On anticoagulant therapy Atrial flutter Asthma-COPD overlap syndrome Insomnia BERENICE on CPAP Asthma Surgical History Hx of arthroscopy of knee History of Achilles tendon repair History of detached retina repair History of umbilical hernia repair History of cystoscopy History of lithotripsy Family History (Updated 08/20/23 @ 15:48 by FLAKO Nix) Mother No problems noted. Father No problems noted. Other Diabetes Social History Are you a primary property caretaker to a significant other at home: No Do you presently have visiting nurse or other home services: No Patient Tobacco Use Status: Never used Tobacco Review of Systems Const Denies chills, Denies fatigue, Denies fever(s), Denies weight gain and Denies weight loss ENT Denies dizziness, Denies lip swelling and Denies tongue swelling Card Denies chest pain, Denies leg edema, Denies lightheadedness, Denies palpitations, Denies dyspnea on exertion, Denies orthopnea and Denies other Resp Reports chest congestion, Reports cough, Denies dyspnea on exertion and Reports wheezing GI Denies hematochezia and Denies change in stool character Musc Denies abnormal gait, Denies muscle weakness, Denies numbness, Denies radiating pain into limb and Denies tingling Neuro Denies abnormal gait, Denies dizziness, Denies numbness and Denies tingling Psych Denies no additional complaints Endo Denies fatigue and Denies palpitations Mason/Lymph Denies easy bleeding and Denies lymphadenopathy Aller/Immun Denies lip swelling, Denies tongue swelling and Reports wheezing Physical Exam Vital Signs: Last Vital Signs Pulse 101 H 02/22/25 14:16 BP 124/52 L 02/22/25 14:16 Pulse Ox 97 02/22/25 14:16 Oxygen Delivery Method Room Air 02/22/25 14:16 BMI result Body Mass Index 35.6 Const General: alert Eyes Pupils: Equal, round and reactive pupils present Neck Neck: Yes normal visual inspection, Yes full ROM and Yes no lymphadenopathy Chest Chest palpation & inspection: normal inspection of the chest Resp Auscultation: no crackles, no rhonchi, no wheezes and diminished lung sounds Cardio Rate: regular rate Rhythm: regular rhythm Heart sounds: S1 normal heart sound present and S2 normal heart sound present GI Palpation (GI): Soft to palpation and nontender Auscultation: normal bowel sounds Skin General skin exam: rashes and/or lesions noted Neuro Cranial nerves: Yes Equal, round and reactive pupils present Assessment & Plan Assessment & Plan (1) BERENICE on CPAP: Code(s): G47.33 - Obstructive sleep apnea (adult) (pediatric); Z99.89 - Dependence on other enabling machines and devices Category: Medical (2) Asthma: Code(s): J45.909 - Unspecified asthma, uncomplicated Category: Medical Qualifiers: Asthma complication type: uncomplicated Asthma persistence: unspecified Asthma severity: moderate Qualified Code(s): J45.909 - Unspecified asthma, uncomplicated (3) Insomnia: Code(s): G47.00 - Insomnia, unspecified Category: Medical Qualifiers: Insomnia type: primary Qualified Code(s): F51.01 - Primary insomnia (4) Asthma-COPD overlap syndrome: Code(s): J44.9 - Chronic obstructive pulmonary disease, unspecified Category: Medical (5) Atelectasis: Code(s): J98.11 - Atelectasis Category: Medical Plan Continue APAP therapy (regional) Ilana person. PAP is malfunctioning, needs to get a replacement APAP from her DME, Regional continue Brovana continue BUdesonide, decrease daily Xopened BID and as needed continue Spiriva Continue Singulair Conitnue Ambien at night Continue higher Xolair 375mg 2/month, consider Dupixent if no better Daliresp 500mcg F/U 6 months Coding Level of Care Code Est Pt Level 4 (27463) Complex EM visit Add On G2211 Diagnoses BERENICE on CPAP G47.33; Z99.89 Moderate asthma without complication, unspecified whether persistent J45.909 Asthma complication type: uncomplicated Asthma persistence: unspecified Asthma severity: moderate Primary insomnia F51.01 Insomnia type: primary Asthma-COPD overlap syndrome J44.9 Atelectasis J98.11 Time Spent (min) 17
[2025-02-22 14:16] VITALS: BP 124/52; PULSE 101; O2SAT 97; BMI 35.6
--- OUTSIDE RECORDS SUMMARY | 2025-02-22 16:23 | XMS_ITS | Clinical Summary ---
Author Organization [address] [place] [address] Address [address] [place] [address] Phone Care Team Providers Care Narrow Gauge Engineer Name Role Phone Tamia Garcia MD Primary Care Provider Allergies Active Allergy Reactions Criticality Noted Date Comments Dulaglutide 11/16/2020 Glipizide 07/05/2019 Levofloxacin 11/16/2020 Other Reaction(s): Myalgia and Joint Pain Morphine Medium 08/26/2016 Other Reaction(s): Rash/Dermatitis Oxycodone 11/30/2019 Penicillins 02/23/2015 Other Reaction(s): Rash/Dermatitis Sulfa (Sulfonamide Antibiotics) High 09/07/2012 Other Reaction(s): Hives/Urticaria Breathing problems Medications dilTIAZem XR (DILACOR XR) 240 mg 24 hr capsule Take 1 Capsule by mouth daily for 360 days. 2024 Active insulin aspart (NovoLOG Flexpen U-100 Insulin) 100 unit/mL (3 mL) injection pen As directed per sliding scale, before meals three times a day upto 25 units a day. Active medical supply, miscellaneous (MISCELLANEOUS MEDICAL SUPPLY MISC) INSULIN PEN NEEDLE (B-D U/F PEN NEEDLE) 31G X 5 MM MISC USE WITH INSULIN PENS 3 TIMES DAILY Active blood-glucose sensor (DEXCOM G7 SENSOR MISC) 1 Device by Does not apply route See Admin Instructions. Change sensor every 10 days Active cholecalciferol (VITAMIN D-3) 250 mcg (10,000 unit) capsule Take by mouth. With potassium Active dilTIAZem (CARDIZEM) 30 mg immediate release tablet TAKE 1 TABLET BY MOUTH NEEDED ( NEED FOR PALPITATIONS). Active amitriptyline (ELAVIL) 25 mg tablet Take 1 Tablet by mouth at bedtime. Active levothyroxine (SYNTHROID, LEVOTHROID) 112 mcg tablet Take 1 tablet (112 mcg total) by mouth 1 (one) time each day. Active insulin degludec (Tresiba FlexTouch U-100) 100 unit/mL (3 mL) injection pen Inject 10 Units into the skin daily. Active blood-glucose meter,continuous (Dexcom G7 Dampener) mis USE CONTINUOUSLY. Active pyridoxine (B-6) 100 mg tablet Take 1 tablet (100 mg total) by mouth 1 (one) time each day. Active levalbuterol (XOPENEX) 0.63 mg/3 mL nebulizer solution Take 1 Ampule by nebulization every 4 hours as needed for Wheezing. Active tiotropium (Spiriva Respimat) 1.25 mcg/actuation inhalation spray Inhale into the lungs. Active cetirizine (ZyrTEC) 10 mg tablet Take 10 mg by mouth 2 times daily. Active medical supply, miscellaneous (MISCELLANEOUS MEDICAL SUPPLY [facility] [place] BLOOD GLUCOSE CALIBRATION (OT ULTRA/FASTTK CNTRL SOLN) SOLUTION As needed Active OneTouch Ultra Test test strip 3 times a day. Active omalizumab (XOLAIR) 150 mg injection Inject 2 mg into the skin every 14 days. Active omalizumab (Xolair) 75 mg/0.5 mL syringe subcutaneous syringe Inject 1 Ampule into the skin every 14 days. Active budesonide (PULMICORT) 0.25 mg/2 mL nebulizer solution Inhale 0.5 mg into the lungs 2 times daily. Active glucose blood (BluLink Glucose Test Strip) test strip ONE TOUCH BASIC STRIPS 1 Each by Does not apply route daily. Active zolpidem (AMBIEN) 5 mg tablet Take by mouth at bedtime as needed. Active arformoteroL (BROVANA) 15 mcg/2 mL nebulizer solution Take 15 mcg by nebulization 2 times daily. Active diclofenac (Voltaren Arthritis Pain) 1 % topical gel Place onto the skin. Active azelastine (ASTELIN) 137 mcg (0.1 %) nasal spray 2 Sprays by Each Nare route 2 times daily for 30 days. Use in each nostril as directed Active montelukast (SINGULAIR) 10 mg tablet Take 1 Tab by mouth at bedtime. Active albuterol HFA (PROAIR HFA ; PROVENTIL HFA ; VENTOLIN HFA) 90 mcg/actuation inhaler Inhale 2 puffs by mouth every 4 (four) hours if needed. Active omeprazole (PRILOSEC) 20 mg tablet,delayed release (DR/EC) Take 1 Tab by mouth. Take one tab qod Active multivitamin (MULTIPLE VITAMINS ORAL) Take by mouth. Active roflumilast (Daliresp) 500 mcg tablet TAKE 1 TABLET BY MOUTH EVERY DAY Active Eliquis 5 mg tablet TAKE 1 TABLET TWICE A DAY 180 tablet 3 024 Active diphenoxylate-at ropine (LOMOTIL) 2.5-0.025 mg per tablet Take 1 tablet by mouth 4 (four) times a day if needed for diarrhea. 60 tablet 3 024 Active metFORMIN (GLUCOPHAGE) 500 mg tabletIndication s:Type 2 diabetes mellitus without complications (CMS/HCC V24, CMS/HCC V28) TAKE 2 TABLETS BY MOUTH TWICE A DAY WITH MEALS 360 tablet 1 024 Active aspirin 81 mg EC tablet Take 1 tablet (81 mg total) by mouth 1 (one) time each day. 90 tablet 2 024 Active rosuvastatin (CRESTOR) 40 mg tablet TAKE 1 TABLET BY MOUTH EVERY DAY 90 tablet 025 Active Jardiance 25 mg tabletIndication s:Type 2 diabetes mellitus without complications (CMS/HCC V24, CMS/HCC V28) TAKE 1 TABLET BY MOUTH EVERY DAY 90 tablet 1 025 Active lisinopriL (PRINIVIL,ZESTRI L) 10 mg tablet TAKE 1 TABLET BY MOUTH EVERY DAY 30 tablet 025 Active empagliflozin (Jardiance) 25 mg tablet Take 1 tablet (25 mg total) by mouth 1 (one) time each day. 024 2024 Discontinued lisinopriL (PRINIVIL,ZESTRI L) 10 mg tablet TAKE 1 TABLET BY MOUTH EVERY DAY 90 tablet 025 2024 Discontinued Active Problems Problem Noted Date Diagnosed Date Abdominal pain 08/10/2024 Hypothyroidism 08/10/2024 Overview (08/10/2024): Was seen in [place] but will be following with us Polycystic ovary disease 08/10/2024 Overview (08/10/2024): Dr Uriostegui Class 2 severe obesity due t o excess calories with serious comorbidity and body mass index (BMI) of 39.0 to 39.9 in adult (CMS/[facility] V24, CMS/[facility] V28) 08/10/2024 Atrial flutter (CMS/[facility] V24, CMS/[facility] V28) 2021 Overview (08/10/2024): Last Assessment & Plan: Continue to endorse episodes of palpitations. These have not increased in frequency or duration since her last office visit. This is well-managed on her long-acting diltiazem and she will take her short acting as needed for ongoing palpitations. She is anticoagulated on full dose Eliquis as her weight is greater than 60 kg her age is less than 80 and her creatinine is less than 1.4. Her [id number] score is 3 for hypertension, diabetes and gender modifier. Educated on risks and benefits of continuing with anticoagulation including increased risk for hemorrhage and decreased risk for stroke. Educated on the importance of seeking emergent medical attention should she sustain a fall involving a head strike. She understands these risks and agrees to continue. 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 V24, [facility] V28) 06/12/2017 Overview (08/10/2024): Last Assessment & Plan: Hemoglobin A1c from October 2023 7.0. Continue to follow with endocrine. Supraventricular tachycardia ([facility] V24) 01/14 Overview (08/10/2024): 09/08/2020 PVCA added palpitations and tachycardia. Low ferritin 08/27/2016 Asthma, well controlled 08/26/2016 Overview (08/10/2024): Dr Small at [place], pul, cena Dr Prakash [facility] Hypertension 08/26/2016 Overview (08/10/2024): Last Assessment & Plan: Blood pressure well-controlled during today's exam with a reading of 112/54. I have made no changes to her antihypertensive medications. She will continue on her current dose of lisinopril 10 mg and diltiazem. Educated on the importance of diet lifestyle modification to help further assist in lowering blood pressure. She was encouraged to follow a low-salt low-fat diet, make purposeful strides towards weight loss and engage in routine aerobic exercise as tolerated. Fatty liver 01/12/2016 Overview (08/10/2024): [facility] Umbilical hernia 04/12/2013 Hyperlipidemia 11/29/2012 Overview (08/10/2024): Last Assessment & Plan: Her last fasting lipid profile October 2023 revealed a total cholesterol 281, triglycerides 359, HDL 37 and an LDL of 173. This is not at goal of less than 70 in the setting of hypertension, obesity and diabetes.Subsequently her PCP increased her rosuvastatin to 40 mg. We could consider updating fasting lipid profile prior to her next office visit unless performed by her primary care. Kidney stones 11/29/2012 Overview (08/10/2024): B cystoscopy Dr Moeller ( sp )? [facility] 08/06/2016; 04/14/19 lithotripsy BERENICE on CPAP 09/07/2012 Overview (08/10/2024): Auto CPAP 9-12 Encounters Date Type Department Care Team Description 02/15/2025 1:00 PM EDT Office Visit [facility] [address] [place] [address] Jose Benavides MD Atrial flutter, unspecified type (CMS/HCC V24, CMS/HCC V28) (Primary Dx) 02/01/2025 1:15 PM EDT Office Visit Endocrinology [address] [phone] Rachel Schreiber MD Type 2 diabetes mellitus without complication, with long-term current use of insulin (CMS/HCC V24, CMS/HCC V28) (Primary Dx); Hypothyroidism, unspecified type 12/21/2024 2:00 PM EST Office Visit Endocrinology [address] [phone] Rachel Schreiber MD Type 2 diabetes mellitus without complication, with long-term current use of insulin (CMS/HCC V24, CMS/HCC V28) (Primary Dx); Hypothyroidism, unspecified type from Last 3 Months Immunizations Name Administration Dates Next Due Hepatitis A Adult (Havrix; V aqta) 19yo and older 02/12/2017,11/08/2016 Hepatitis B (Yrkvhkm-A-Vzfgt , Recombivax HB-Adult) 19yo and older 08/19/2003,03/03/2003,09/10/2002 Influenza Quadravalent, MDCK , 0.5ml, preservative free (Flucelvax) 6mo and older 09/01/2018 Influenza trivalent, 0.5mL, preservative free (Fluarix; FluLaval; Fluzone) ages 6mo and older (Afluria) 3 years and older 03/17/2023,08/02/2022,08/14/2021,07/21,08/26/2017,08/26/2016,09/07/2012 Influenza, Unspecified 08/23/2023 MMR, measles mumps and rubel la Live (Priorix; M-M-R II) 12mo and older 10/08/2002,09/15/2002 Pfizer (ages 12 & older) Biv alent, COVID-19 08/15/2023,08/19/2022 Pfizer SARS-CoV-2 COVID-19, mRNA, LNP-S, preservative free 08/31/2023,08/31/2021,01/23/2021,01/02 Pneumococcal conjugate 20 va lent (Prevnar 20, PCV 20) 2mo and older 09/27/2022 Pneumococcal polysaccharide 23 valent (Pneumovax 23) 2yo and older 01/25/2014 Td Tetanus diptheria (Tdvax) 7yo and older 08/27/2002 Tdap Tetanus diptheria acell ular pertussis (Boostrix; Adacel) 7yo and older 01/25/2014 Surgical History Surgery Date Site/Laterality Comments WISDOM TOOTH EXTRACTION 1980 PROCEDURE: HISTORICAL WISDOM TEETH EXTRACTION OTHER SURGICAL HISTORY 1995 PROCEDURE: REPAIR DETACHED RETINA; COMMENT: right eye OTHER SURGICAL HISTORY 2005 PROCEDURE: AL REPAIR PRIMARY OPEN/PRQ RUPTURED ACHILLES TENDON; COMMENT: left leg KIDNEY STONE SURGERY PROCEDURE: AL NEPHROLITHOTOMY REMOVAL CALCULUS HERNIA REPAIR 09/2013 PROCEDURE: REPAIR UMBILICAL HERNIA; COMMENT: DR. Morgan CYSTOSCOPY PROCEDURE: AL CYSTOURETHROSCOPY; COMMENT: Dr Jonathan lugo COLONOSCOPY 01/03/2017 PROCEDURE: HISTORICAL COLONOSCOPY; COMMENT: small right colon and cecal polyps: Tubular adenoma ? 2 . TOTAL KNEE ARTHROPLASTY 06/2012 PROCEDURE: AL ARTHRP KNE CONDYLE&PLATU MEDIAL&LAT COMPARTMENTS; COMMENT: right knee LITHOTRIPSY 04/14/2019 Left PROCEDURE: HISTORICAL LITHOTRIPSY; COMMENT: Dr. Hallman COLONOSCOPY 12/03/2019 PROCEDURE: HISTORICAL COLONOSCOPY; COMMENT: Visually normal; random biopsies obtained: Biopsies were normal. UPPER GASTROINTESTINAL ENDOSCOPY 12/03/2019 PROCEDURE: AL UPPER GI ENDOSCOPY PERFORMED; COMMENT: Scattered small fundic gland polyps, otherwise visually normal, duodenal biopsies obtained: Duodenal biopsies normal. Medical History Medical History Date Comments Asthma DX:Asthma Polycystic ovary disease DX:Poly cystic ovary disease; COMMENT: Dr Uriostegui Kidney stones 11/29/2012 DX:Kidney stones ; COMMENT: B cystoscopy Dr Moeller ( sp )? [facility] 08/06/2016 Severe persistent asthma, well-controlled ([facility] V28) 08/26/2016 DX:Severe persistent ast hma, well-controlled; COMMENT: Dr Small at [place], pul, cena Dr Prakash [facility] Hypertension 08/26/2016 DX:Hypertension Diabetes mellitus type 2, uncomplicated ([facility] V24, [facility] V28) 06/12/2017 DX:Diabetes mellitus type 2, uncomplicated ([facility]) Fatty liver 01/12/2016 DX:Fatty liver; COMMENT: [facility] Hyperlipidemia with target L DL less than 100 11/29/2012 DX:Hyperlipidemia with targe t LDL less than 100; COMMENT: IMO update Low ferritin 08/27/2016 DX:Low ferritin Supraventricular tachycardia ([facility] V24) 01/14/2017 DX:Supraventricular tachycar danish (HCC); COMMENT: 09/08/2020 PVCA added palpitations and tachycardia. 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 V24, [facility] V28) 05/13/2019 DX:Class 2 severe obesity d ue to excess calories with serious comorbidity and body mass index (BMI) of 39.0 to 39.9 in adult (HCC) Lumbar spondylosis 05/13/2019 DX:Lumbar spo ndylosis Lumbar radiculitis 05/13/2019 DX:Lumbar rad iculitis Gastroesophageal reflux dise ase without esophagitis 10/29/2018 DX:Gastroesophageal reflux d isease without esophagitis Retinal detachment, left 12/11/2020 DX:Reti nal detachment, left; COMMENT: BERENICE on CPAP 09/07/2012 DX:BERENICE on CPAP; COMMENT: Auto CPAP 07-08 Irritable bowel syndrome DX:Irri table bowel syndrome Abdominal pain DX:Abdominal emily n Fatty liver DX:Fatty liver Family History Medical History Relation Name Comments Diabetes Brother 1 Other: heart disease Brother 2 Pancreatic cancer Father Other: heart diseas Maternal Grandfather Other: heart disease Maternal Grandmother Heart attack Mother Other: heart disease Paternal Grandfather Lung cancer Paternal Grandmother Other cancer Paternal Grandmother mouth Colon cancer Neg Hx Crohn's disease Neg Hx Ovarian cancer Neg Hx Ulcerative colitis Neg Hx Relation Name Status Comments Brother 1 Brother 2 Brother 3 Alive Gregory, DM, chol Brother 4 Alive Jaylan, chol Father (Age 61) panc ca Maternal Grandfather Maternal Grandmother Mother (Age 74) CHF Paternal Grandfather Paternal Grandmother Sister 1 Alive chol Sister 2 Alive chol Sister 3 Alive Social History Tobacco Use Types Packs/Day Years Used Date Smoking Tobacco: Never Smokeless Tobacco: Never Tobacco Cessation:Counseling Given: Not Answered Alcohol Use Standard Drinks/Week Comments Yes 0 (1 standard drink = 0.6 oz pur e alcohol) Comments Unknown Sex and Gender Information Value Date Recorded Sex Assigned at Female 09/21/2024 2:19 PM EST Legal Sex Female 6:34 PM EST Gender Identity Female 09/21/2024 2:19 PM EST Sexual Orientation Choose not to disclose 2023 2:19 PM EST Obstetrics History Last Filed Vital Signs Vital Sign Reading Time Taken Comments Blood Pressure 120/56 02/15/2025 1:02 PM EDT Pulse 86 02/15/2025 1:02 PM EDT Temperature 35.7 ??C (96.3 ??F) 02/01/2025 1:20 PM ED T Respiratory Rate 16 12/21/2024 1:57 PM EST Oxygen Saturation 99% 02/15/2025 1:02 PM EDT Inhaled Oxygen Concentration - - Weight 95.3 kg (210 lb) 02/15/2025 1:02 PM EDT Height 165.1 cm (5' 5 ) 02/15/2025 1:02 PM EDT Body Mass Index 34.95 02/15/2025 1:02 PM EDT Plan of Treatment Upcoming Encounters Date Type Department Care Team (Late st Contact Info) Description 03/14/2025 8:30 AM EDT Office Visit Adult Medicine [address] [phone] Patrick Jasmine PA [address] [place] [address] 05/03/2025 2:30 PM EDT Office Visit Endocrinology [address] [phone] Rachel Schreiber MD [address] [place] [address] Health Maintenance Due Date Last Done Comments Diabetes: Annual Foot Exam 01/10/1972 Diabetes: Annual Retina Eye Exam 01/10/1972 Zoster Vaccines (1 of 2) 01/10/2012 Hepatitis A Vaccines (3 of 3 - Hep A Twinrix risk 3-dose series) 07/15/2017 02/12/2017, 11/08/2016 RSV Immunization Adult Patients (1 - Risk 60-74 years 1-dose series) 2022 Depression Screening 10/05/2022 HIV Screening 10/05/2022 Social Influencers of Health Screening 10/05/2022 DTaP,Tdap,and Td Vaccines (3 - Td or Tdap) 01/26/2024 01/25/2014, 08/27/2002 COVID-19 Vaccine ( season) 2024 08/31/2023, 08/15/2023, 08/19/2022, Additional history exists Diabetes: Blood Sugar Control Test (HGBA1C) 11/13/2024 05/13/2024, 05/13/2024 Colorectal Cancer Screening: Colonoscopy 12/03/2024 12/03/2019 Diabetes: Annual Urine Albumin-Creatinine Ratio (uACR) 05/13/2025 05/13/2024 Diabetes: Annual GFR (Glomerular Filtration Rate) 05/13/2025 05/13/2024, 05/13/2024 Hypertension/CHF/CAD Annual BMP Blood Test 05/13/2025 05/13/2024, 05/13/2024 Influenza Vaccine (Season Ended) 2025 08/23/2023, 03/17/2023, 08/02/2022, Additional history exists Breast Cancer Screening 10/14/2026 10/14/2024 Cervical Cancer Screening: HPV 01/13/2029 01/14/2024 Cholesterol Screening (Lipid Panel) 05/13/2029 05/13/2024, 05/13/2024 MMR Vaccines Aged Out 10/08/2002, 09/15/2002 No lo nger eligible based on patient's age to complete this topic Hepatitis B Vaccines Completed 08/19/2003, 03/03/2003, 09/10/2002 Hepatitis C Screening Completed 03/04/2014 Pneumococcal Vaccine: 50+ Years Completed 09/27/2022, 01/25/2014 Pneumococcal Vaccine: Pediatrics (0 to 5 Years) and At-Risk Patients (6 to 64 Years) Completed 09/27/2022, 01/25/2014 HIB Vaccines Aged Out No longer eligi ble based on patient's age to complete this topic HPV Vaccines Aged Out No longer eligi ble based on patient's age to complete this topic IPV Vaccines Aged Out No longer eligi ble based on patient's age to complete this topic Meningococcal ACWY Vaccine Aged Out N o longer eligible based on patient's age to complete this topic Meningococcal B Vaccine Aged Out No l onger eligible based on patient's age to complete this topic RSV Immunization Patients Under 20 months Aged Out No longer eligible based on patient's age to complete this topic Varicella Vaccines Aged Out No longer eligible based on patient's age to complete this topic Procedures Procedure Name Priority Date/Time Associated Diagnosis Comments ECG 12-LEAD Routine 02/15/2025 1:07 PM EDT Atrial flutter, unspecified type (CMS/[facility] V24, CMS/[facility] V28) EXTERNAL MAMMOGRAM REPORT 10/14/2024 HM URINE ALBUMIN CREATININE RATIO Routine 05/13/2024 ANNUAL BMP BLOOD TEST Routine 05/13/2024 HEMOGLOBIN A1C Routine 05/13/2024 LIPID PANEL Routine 05/13/2024 HM HPV Routine 01/14/2024 HM COLONOSCOPY Routine 12/03/2019 HEPATITIS C SCREENING Routine 03/04/2014 from Last 3 Months or Most Recently Relevant to Health Maintenance Results * ECG 12 lead (02/15/2025 1:07 PM EDT) Ventricular Rate ECG 86 BPM GEMUSE Atrial Rate 86 BPM GEMUSE P-R Interval 178 ms GEMUSE QRS Duration 84 ms GEMUSE Q-T Interval 340 ms GEMUSE QTc 406 ms GEMUSE P Wave [place] 51 degrees GEMUSE R [place] 23 degrees GEMUSE T [place] 59 degrees GEMUSE ECG Interpretation Normal sinus rhythm Septal infarct , age undetermined Abnormal ECG When compared with ECG of 14-OCT-2022 16:43, No significant change was found Confirmed by MD Kennedy, Jose ([id number]) on 02/15/2025 1:10:18 PM GEMUSE 02/15/2025 1:07 PM EDT 02/15/2025 1:10 PM EDT us Jose Benavides MD ECG ORDERABLES Final Res ult GEMUSE * External Mammogram Report (10/14/2024) Anatomical Region Laterality Modality Mammography us Provider [facility] BI PROCEDURES Final Result * Urine Albumin Creatinine Ratio (05/13/2024) Urine Albumin Creatinine Ratio abstracted Result [facility] Provider HEALTH MAINTENANCE Final Result * Annual BMP Blood Test (05/13/2024) [facility] Annual BMP Blood Test abstracted Result [facility] Provider HEALTH MAINTENANCE Final Result * (ABNORMAL) Hemoglobin A1c (05/13/2024) [facility] Hemoglobin A1C 7.1(A) <=6.5 % Blood Venous blood specimen / Unknown Result [facility] Provider LAB BLOOD ORDERABLES Lauren l Result * (ABNORMAL) Lipid panel (05/13/2024) [facility] LDL/HDL Ratio 4 0 - 4 Triglycerides 213(A) 0 - 150 mg/dL Cholesterol 170 0 - 200 mg/dL HDL 42 >=40 mg/dL LDL Cholesterol 86 0 - 100 mg/dL Blood Venous blood specimen / Unknown Result [facility] Provider LAB BLOOD ORDERABLES Lauren l Result * Cervical Cancer Screening: HPV (01/14/2024) [facility] Cervical Cancer Screening: HPV abstracted, negative Result [facility] Provider HEALTH MAINTENANCE Final Result * Colonoscopy (12/03/2019) [facility] Colonoscopy no interpretation , abstracted Anatomical Region Laterality Modality Other Result [facility] Provider HEALTH MAINTENANCE Final Result * Hepatitis C Screening (03/04/2014) [facility] Hepatitis C Screening abstracted Result [facility] Provider HEALTH MAINTENANCE Final Result from Last 3 Months or Most Recently Relevant to Health Maintenance Insurance [employer] Care Teams Narrow Gauge Engineer Relationship Specialty Start Date End Date Tamia Garcia MD [address] [place] [id number] PCP - General Internal Medicine 07/11/22
--- OUTSIDE RECORDS SUMMARY | 2025-02-22 16:23 | XMS_ITS | Patient Health Record ---
Author Organization [facility] Address [address] [place] [address] Care Team Providers Care Gastroenterology Physician Name Role Phone RAMAN (RETIRED)ROSAURA Primary Care Provide Hollie Nuñez Unavailable [phone] Allergies Allergen (clinical drug ingredient) Drug/Non Drug Allergy documented on EMR Reaction Allergy Type Onset Date Status morphine MORPHINE (uncoded) Unknown Allergy A ctive PCN (uncoded) Unknown Allergy Active Substance with sulfonamide structure and antibacterial mechanism of action (substance) SULFA (uncoded) Hives, Breathing Difficulty Allergy Active levofloxacin Levofloxacin trouble breathing Drug Allergy Active oxycodone Oxycodone HCl rash Drug Allergy Act thiago dulaglutide Trulicity abdominal pain Drug Allergy Active Reason For Referral No Information Medications Medication SIG (Take, Route, Frequency, Duration) Notes Start Date End Date Status Vitamin B Complex Ac tive Vitamin C 500MG 1 ORAL twice daily for -3 [facility] 10/18/20 11 Active Synthroid 125 MCG 1 ORAL daily for -3 [facility] 10/18/2011 Active Cetirizine HCl 10 MG 1 tablet Orally Twi ce a day Active ProAir HFA 90MCG 2 Inhalation four ti mes daily for -3 [facility] 10/18/2011 Active Zolpidem Tartrate 5 MG 1 tablet at bedti me as needed Orally Once a day Active PriLOSEC OTC 20MG 1 ORAL twice daily for - [facility] 2010 Active Ipratropium [place] 0.03 % 2 sprays in e ach nostril as needed Nasally Twice a day Active Multivitamins 1 ORAL daily for -3 [facility] 10/18/2011 Active Brovana Inhalation Twice a day Active metFORMIN HCl 1000MG 1 ORAL twice daily for -3 [facility] 05/2012 Active Atorvastatin Calcium 40 MG 1 tablet Oral ly Once a day for 30 day(s) Active Lisinopril 5MG 1 ORAL daily for -3 [facility] 10/18/2011 Active Montelukast Sodium 10 MG 1 tablet in the evening Orally Once a day Active Aspirin 325MG 1 ORAL daily for -3 [facility] 10/18/2011 Active Xolair 150 MG Subcutaneous Act thiago Sudafed Active Budesonide 0.5 MG/2ML 2 ml Inhalation On ce a day Active ZyrTEC Active Daliresp 500 MCG 1 tablet Orally Once a day Active Vitamin D3 1000 IU 1 ORAL daily for -3 [facility] 10/18/2011 Active Diclofenac Sodium Ac tive Social History Tobacco Use: Social History Observation Description Date Details (start date - stop date) Never Smoker NA - NA Tobacco Use/Smoking Question Answer Notes Are you a nonsmoker Alcohol Screen (Audit-C) Question Answer Notes Did you have a drink contain ing alcohol in the past year? Yes How often did you have a dri nk containing alcohol in the past year? Monthly or less (1 point) How many drinks did you have on a typical day when you were drinking in the past year? 1 or 2 drinks (0 point) How often did you have 6 or more drinks on one occasion in the past year? Never (0 point) Points 1 Interpretation Negative Sexual History Question Answer Notes Had sex in the past 12 months (vaginal, oral, or anal)? No Problems Problem Type SNOMED Code ICD Code Onset Dates Problem Status W/U Status Risk Notes Problem Unspecified menopausal and perimenopausal disorder (N95.9) Active confirmed Problem Body mass index 40+ - severely obese (479768495) Body mass index (BMI) 40.0-44.9, adult (Z68.41) Active confirmed Problem Menopause (908675019) Menopausal and female climacteric states (N95.1) Active confirmed Problem Hypothyroidism (16331162) Unspecified hypothyroidism (244.9) Active confirmed Major Problem Polycystic ovary syndrome (disorder) (673345655) Polycystic ovaries (256.4) Active confirmed Diag Problem Hyperlipidemia (33911431) Other and unspecified hyperlipidemia (272.4) Active confirmed Major Problem Obesity (176788587) Obesity, unspecified (278.00) Active confirmed Diag Problem Essential hypertension (40868749) Unspecified essential hypertension (401.9) Active confirmed Major Problem Asthma (disorder) (904492623) Asthma, unspecified, unspecified status (493.90) Active confirmed Major Problem Cyst of ovary (99285167) Other and unspecified ovarian cyst (620.2) Active confirmed Major Problem Abnormal vaginal bleeding (724086600) Other disorder of menstruation and other abnormal bleeding from female genital tract (626.8) Active confirmed Diag Problem Menopausal symptom (90418538) Symptomatic menopausal or female climacteric states (627.2) Active confirmed Major Problem Gynecological examination normal (720178141399732) Routine gynecological examination (V72.31) Active confirmed Major Problem Screening for malignant neoplasm of colon (498187961) Special screening for malignant neoplasms, colon (V76.51) Active confirmed Major Plan Of Treatment Pending Test Test Name Order Date Urinalysis 05/25/2018 25OH VITAMIN D 04/22/2017 THIN PREP,HPV,ROBIN IF HPV+ (>29YR)(SCRN) 04/17/2017 MM Digital Screening Mammogram 3D 2018 MM Digital Screening Mammogram 3D 2019 Insurance Providers Payer Name Payer Address Payer Phone Subscriber Number Group Number Insured Name Patient Relationship to Insured Coverage Start Date Coverage End Date [facility]MERLY [facility] [employer] [address] [place], [place] [id number] YUMIKO GARZON Self - patient is the insured Medical (General) History Medical History History ICD Code Other specified abnormal uterine and vag inal bleeding N93.8 Obesity, unspecified E66.9 Polycystic ovarian syndrome E28.2 Other asthma J45.998 Menopausal and female climacteric states N95.1 Other hyperlipidemia E78.4 Essential (primary) hypertension I10 Hypothyroidism, unspecified E03.9 Unspecified ovarian cyst, unspecified si de N83.209 Pure hypercholesterolemia, unspecified E 78.00 Fatty (change of) liver, not elsewhere c lassified K76.0 Surgical History Surgery Date(Month/Year) Right Retinal Surgery Left Archilles Tendon Surgery Cystoscopic Removal of Ureteral and Kidn ey Stones, Left Hague Teeth Extraction Kidney Stones LITHOTRIPSY - 07/2019, 05/2020 Hernia Repair 09/2013 Hospitalization History Reason Date(Month/Year) See Surgical Hx
== END 2025-02-22 14:45 | disposition home or self-care (01) ==
LOC: HO.HPS 14:12
PROVIDERS: PCP Internal Medicine; Visit Provider Hospitalist
DX: G47.33 Obstructive sleep apnea (adult) (pediatric) (principal); Z99.89 Dependence on other enabling machines and devices; J45.909 Unspecified asthma, uncomplicated; F51.01 Primary insomnia; J44.9 Chronic obstructive pulmonary disease, unspecified; J98.11 Atelectasis
CPT/HCPCS: 99214

== ENCOUNTER → 2025-02-22 14:11 | Outpatient (BNVA) | payer OTHER, SELFPAY | PROVIDERS: PCP Internal Medicine; Visit Provider Hospitalist ==

== ENCOUNTER 2025-08-16 15:33 | Outpatient (AMB) | payer OTHER, SELFPAY ==
[2025-08-16 15:41] VITALS: BP 142/58; PULSE 99; O2SAT 97; BMI 35.4
--- NOTE | 2025-08-16 15:41 | A.OFFVIS_ITS ---
Vital Signs 08/16/25 15:41 Height 5 ft 5 in Weight 212 lb 11.937 oz BMI 35.4 BP 142/58 H Blood Pressure Location Lt brachial Position Sitting Pulse 99 Pulse Source Pulse Oximeter Pulse Oximetry (%) 97 Oxygen Delivery Method Room Air Intake Visit Reasons: Asthma Allergies dulaglutide (Trulicity) Allergy (Severe, Verified 08/16/25 15:44) Abdominal Pain levofloxacin Allergy (Severe, Verified 08/16/25 15:44) Nausea and Vomiting penicillamine Allergy (Severe, Verified 08/16/25 15:44) Rash morphine (MORPHINE) Allergy (Intermediate, Verified 08/16/25 15:44) RASH oxycodone (Oxycodone) Allergy (Intermediate, Verified 08/16/25 15:44) ITCHING Penicillins (PENICILLINS) Allergy (Intermediate, Verified 08/16/25 15:44) RASH Sulfa (Sulfonamide Antibiotics) Allergy (Intermediate, Verified 08/16/25 15:44) RASH/DIFFICULTY BREATHING HPI Comments Details: The patient is a 65-year-old woman with a known history of severe persistent asthma, obstructive sleep apnea on CPAP in an elevated right hemidiaphragm. 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 She has continued to Xolair every 2 weeks in her respiratory regimen which includes Dulera and Spiriva. She has not been using her nebulizer. She has been complaining of more shortness of breath and wheezing. The Xolair she has been on for the last 6-7 years. She feels that she still gets some response to it. Her senior bioinformatics scientist did talk to her about considering other agents in the near future. Wheezing still pretty significant on a daily basis. Which could be moderate to severe. She is also complaining of daytime drowsiness. She has been using the CPAP the whole night, but still waking up tired. We talked about requesting a download from her [employer] in adjusting her machine. She will bring her machine during the next follow-up. We also was evaluated at the [facility] ER for palpitations. She was not Sudafed at the time. She is no longer taking it. She did have a chest x-ray which was without any acute disease. Initially she responded very well to the Brovana and budesonide. However, her insurance did not cover the Brovana and therefore starter Perforomist. The performomist not working for her. She is getting more chest tightness and wheezing as. 03/18/2023 the patient is here for pulmonary follow-up visit. The patient is not feeling well. She started developing worsening cough chest congestion and shortness of breath. She did test for COVID-19 and she was negative. She is exposed to significant amount of kids and sick contacts. She has been also having increasing chest tightness. She is trying to avoid prednisone altogether. The patient also has been having issues with decreased energy. She feels very drain and significant dyspnea. She is not sure if is related to stress. She is also having hard time sleeping. She needs her Ambien. Patient also has been dealing with significant amount of kidney stones. She is scheduled to undergo lithotripsy in the near future. Therefore, will go ahead and start antibiotics to treat her for a bronchitis or lower respiratory infection hopefully she can the better part of a seizure. If however she did not the patient will need to consider rescheduling minimize worsening symptoms. In the meantime the patient appears to be pale in appearance. Therefore will go ahead and request blood work including CBC to assess hemoglobin. the patient has been taking Eliquis for her atrial flutter. she reports paroxysmal episodes of the flutter. She is currently on diltiazem. She cannot use any beta blockers due to her significant asthma. 06/17/2023 the patient is here for pulmonary follow-up visit. Overall the patient has been doing fairly well. She still having a congested cough. With white phlegm. Moderate severity. She continues to have some shortness of breath and chest tightness but otherwise about the same. She had been on Brovana and was switched over to Xopenex because of tremulous and palpitations and increased heart rate. However, the patient did not see any significant change in the heart rate and her breathing has been little bit worse. Therefore she rather go back on the Brovana and she will continue with the budesonide. I also encouraged her to continue with Spiriva as well. Will treat her with some azithromycin for 5 days for bronchitis. She otherwise has been doing okay she continues on the Eliquis for her atrial flutter. She also continues on CPAP therapy. She continues on Xolair. If she continues to be symptomatic she will talk to her senior bioinformatics scientist regarding switching her over to a different agent such as Dupixent. 10/22/2023 the patient is here for a pulmonary follow-up visit. Since we last spoke back in the end of August she did undergo knee arthroscopy findings she had no cartilage in her knee. Was recommended that she consider getting a knee replacement. She is going to think about it for now. In the meantime after surgery she did develop increasing cough and chest congestion. She noticed that her sputum was fall and smell and also was colored. She had just completed antibiotics several weeks before and therefore she opted on trying to hold off on any antibiotics. Her symptoms did initially get a little better but then got worse again. Moderate severity. She also complains of some slight discomfort in the left lower chest area that comes and goes. On examination she does have some fine scattered crackles in the left base likely atelectasis although can not rule out early pneumonia. The patient will be started on Vantin since she is allergic to penicillin she will monitor closely for any allergic reactions. Her allergies to penicillin will basically simple rash so therefore not too concerning. No significant wheezing on examination so therefore she does not any prednisone. The patient will continue with current respiratory therapy as well. I did encourage her to pear picker Mucinex and to use her nebulizer for mucus clearance and for chest physical therapy. If she has no better while on the antibiotics the patient should come in for an x-ray. 02/24/2024 the patient is here for pulmonary. Overall she is doing better. Several months ago she did end up with the flu. She had elevated fevers and has some delirium. Afterwards she did have a postviral bacterial infection. She was evaluated and treated in our office. She did well. Now she is back to her baseline. She is doing all the nebulized therapy and allergy medicines. She is currently well to the therapy. She has not had any any need for more prednisone or antibiotics. She continues on the Xolair injections. She is seen by Allergy. 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 She hopes that when she has not exposed to some and sickness from the kids and other exposures hopefully that she is going to feel better. We can reassess her then when she comes back in 4-6 months to see if we can deescalate some her care ideally to switch over to inhaler therapy to minimize nebulizer treatments. In the meantime she continues uses CPAP every night CPAP therapy continues to be affecting beneficial. She does use it for more than 4 hours a night. She is currently using the Ilana view mask which she finds fits well but is not perfect. 08/24/2024 the patient is here for a pulmonary follow-up visit. Overall the patient is doing okay. She finally retired. She is having the stress in her life and does helping her breathing. 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 She would like to stay busy. She is also swimming on a regular basis. The patient has continue her Xolair although it has been delayed. She is not sure how affective disorder has been for her. She can consider rechecking her IgE levels and eosinophils in the future to see if she is a good candidate for Dupixent. In the meantime we are going to try to simplify her respiratory regimen. She does take multiple inhalers and medications. Based on the medications she is taking will try to decrease the budesonide to once a day as a trial to see if we can minimize the degree of steroids specially with a persistently elevated blood sugars. In addition to that we were wondering about other medications such as Singulair. This is something she can use seasonally depending on the season of her significant allergies. She continues use her CPAP. CPAP therapy continues to be affecting beneficial and she does use it for more than 4 hours a night. 02/22/2025 the patient is here for a pulmonary follow-up visit. She has had a hard time for the beginning of the winter when she had significant sickness. She did have a chest x-ray in November at [facility] which I personally reviewed. Initially was read as normal but she did have some haziness patchy opacity in the right middle lobe areas suggesting of an infiltrate likely bronchopneumonia. The patient does have allergy so therefore she is limited with antibiotic options but cefpodoxime will be an option for her to using the future. In the meantime she continues use her respiratory therapy as prescribed. She continues to receive Xolair. She is considering Dupixent. I believe Dupixent would be a good option for her. The patient also has been using her CPAP. CPAP therapy has been affecting beneficial and she has been getting supplies through [facility]. Although now seems like she can not tolerate the pressures in the machine is older more than 5 years. Seems like the therapy in the pressure are not effective any longer. Will go ahead and request a replacement machine at this time. 08/16/2025 the patient is here for pulmonary follow-up visit. Overall the patient has been feeling okay. She is doing well from a respiratory status and she is tolerating her respiratory medications and also her biologic therapies. She has not required prednisone which is reassuring. The patient continues use her CPAP. That she did find a mask that fits her better. She is tolerating it well. The therapy has been affecting beneficial. Although she is still feeling tired in the morning even after using it for more than 4 hours a night. Sometimes she has a hard time sleeping so therefore she can use Ambien. If however though using the Ambien she still feels tired during the daytime after adequate sleep she may have chronic fatigue independent to her treat his sleep apnea. In that case we may consider a small dose of a stimulant to help her with her chronic fatigue syndrome. [facility] Medical History (Updated 10/22/23 @ 17:28 by Carlin Oliva MD) Has daytime drowsiness PONV (postoperative nausea and vomiting) Arthritis Diabetes Polycystic ovarian syndrome Rafa's thyroiditis GERD (gastroesophageal reflux disease) On anticoagulant therapy Atrial flutter Asthma-COPD overlap syndrome Insomnia BERENICE on CPAP Asthma Surgical History Hx of arthroscopy of knee History of Achilles tendon repair History of detached retina repair History of umbilical hernia repair History of cystoscopy History of lithotripsy Family History (Updated 08/20/23 @ 15:48 by FLAKO Nix) Mother No problems noted. Father No problems noted. Other Diabetes Social History Are you a primary career placement services counselor to a significant other at home: No Do you presently have visiting nurse or other home services: No Patient Tobacco Use Status: Never used Tobacco Review of Systems Const Denies chills, Reports daytime sleepiness, Reports fatigue, Denies fever(s), Denies weight gain and Denies weight loss ENT Denies dizziness, Denies lip swelling and Denies tongue swelling Card Denies chest pain, Denies leg edema, Denies lightheadedness, Denies palpitations, Denies dyspnea on exertion, Denies orthopnea and Denies other Resp Reports cough, Denies dyspnea on exertion and Reports wheezing GI Denies hematochezia and Denies change in stool character Musc Denies abnormal gait, Denies muscle weakness, Denies numbness, Denies radiating pain into limb and Denies tingling Neuro Denies abnormal gait, Denies dizziness, Denies numbness and Denies tingling Psych Denies no additional complaints Endo Reports fatigue and Denies palpitations Mason/Lymph Denies easy bleeding and Denies lymphadenopathy Aller/Immun Denies lip swelling, Denies tongue swelling and Reports wheezing Physical Exam Vital Signs: Last Vital Signs Pulse 99 08/16/25 15:41 BP 142/58 H 08/16/25 15:41 Pulse Ox 97 08/16/25 15:41 Oxygen Delivery Method Room Air 08/16/25 15:41 BMI result Body Mass Index 35.4 Assessment & Plan Assessment & Plan (1) BERENICE on CPAP: Code(s): G47.33 - Obstructive sleep apnea (adult) (pediatric); Z99.89 - Dependence on other enabling machines and devices Category: Medical (2) Asthma: Code(s): J45.909 - Unspecified asthma, uncomplicated Category: Medical Qualifiers: Asthma complication type: uncomplicated Asthma persistence: unspecified Asthma severity: moderate Qualified Code(s): J45.909 - Unspecified asthma, uncomplicated (3) Insomnia: Code(s): G47.00 - Insomnia, unspecified Category: Medical Qualifiers: Insomnia type: primary Qualified Code(s): F51.01 - Primary insomnia (4) Asthma-COPD overlap syndrome: Code(s): J44.9 - Chronic obstructive pulmonary disease, unspecified Category: Medical (5) Atelectasis: Code(s): J98.11 - Atelectasis Category: Medical (6) Has daytime drowsiness: Code(s): R40.0 - Somnolence Category: Medical Plan Continue APAP therapy (regional) Ilana person. PAP is malfunctioning, needs to get a replacement APAP from her DME, Regional continue Brovana continue BUdesonide, decrease daily Xopened BID and as needed continue Spiriva Continue Singulair Conitnue Ambien at night Continue higher Xolair 375mg 2/month, consider Dupixent if no better Daliresp 500mcg consider mild stimulant F/U 6 months Medications: Refilled zolpidem 10 mg PO BEDTIME PRN 30 tabs 3RF sleep 30 days Coding Level of Care Code Est Pt Level 4 (68147) Complex EM visit Add On G2211 Diagnoses BERENICE on CPAP G47.33; Z99.89 Moderate asthma without complication, unspecified whether persistent J45.909 Asthma complication type: uncomplicated Asthma persistence: unspecified Asthma severity: moderate Primary insomnia F51.01 Insomnia type: primary Asthma-COPD overlap syndrome J44.9 Atelectasis J98.11 Has daytime drowsiness R40.0 Time Spent (min) 17
--- OUTSIDE RECORDS SUMMARY | 2025-08-16 20:37 | XMS_ITS | Encounter Summary ---
Author Organization [facility] Address [address] [place] [id number] Phone Care Team Providers Care Button Inspector Name Role Phone Tamia Garcia MD Primary Care Provider [phone] Encounter Details Date Type Department Care Team (Late st Contact Info) Description 06/17/2023 Procedure Pass [facility], [facility] [address] [place] [address] Social History Tobacco Use Types Packs/Day Years Used Date Smoking Tobacco: Never Assessed Education Answer Date Recorded Are you interested in more education? Not on eboni e 05/19/2023 Are you concerned about learning? Not on file 05/19/2023 No 05/19/2023 No 05/19/2023 Digital Access Answer Date Recorded No 05/19/2023 No 05/19/2023 Reliable internet access at home? Not on file 05/19/2023 Device with a working camera? Not on file Comments Unknown Sex and Gender Information Value Date Recorded Sex Assigned at Female 05/19/2023 10:23 AM EDT Legal Sex Female 10:21 AM EDT Gender Identity Female 05/19/2023 10:23 AM EDT Sexual Orientation Straight 05/19/2023 10 :23 AM EDT documented as of this encounter Plan of Treatment Not on file documented as of this encounter Visit Diagnoses Not on filedocumented in this encounter Care Teams Button Inspector Relationship Specialty Start Date End Date Tamia Garcia MD [address] [place] [id number] PCP - General Internal Medicine 05/19/23 documented as of this encounter Additional Source Comments The information contained in this document represents components of the legal health record. It is not the complete legal health record.[facility]
--- OUTSIDE RECORDS SUMMARY | 2025-08-16 20:37 | XMS_ITS | Patient Health Record ---
Author Organization [facility] Address [address] [place] [address] Care Team Providers Care Equal Opportunity Representative Name Role Phone RAMAN (RETIRED)ROSAURA Primary Care Provide Hollie Nñuez Unavailable [phone] Allergies Allergen (clinical drug ingredient) Drug/Non Drug [...] tive Vitamin C 500MG 1 ORAL twice daily; Duration: -3 [facility] 10/18/2011 Active Synthroid 125 MCG 1 ORAL daily; Durati on: -3 [facility] 10/18/2011 Active Cetirizine HCl 10 MG 1 tablet Orally Twi ce a day Active ProAir HFA 90MCG 2 Inhalation four ti mes daily; Duration: -3 [facility] 10/18/2011 Active Zolpidem Tartrate 5 MG 1 tablet at bedti me as needed Orally Once a day Active PriLOSEC OTC 20MG 1 ORAL twice daily; Duration: -3 [facility] 10/18/2011 Active Ipratropium Magazine 0.03 % 2 sprays in e ach nostril as needed Nasally Twice a day Active Multivitamins 1 ORAL daily; Durati on: -3 [facility] 10/18/2011 Active Brovana Inhalation Twice a day Active metFORMIN HCl 1000MG 1 ORAL twice daily; Duration: -3 [facility] 07/04/2012 Active Atorvastatin Calcium 40 MG 1 tablet Oral ly Once a day; Duration: 30 day(s) Active Lisinopril 5MG 1 ORAL daily; Durati on: -3 [facility] 10/18/2011 Active Montelukast Sodium 10 MG 1 tablet in the evening Orally Once a day Active Aspirin 325MG 1 ORAL daily; Durati on: -3 [facility] 10/18/2011 Active Xolair 150 MG Subcutaneous Act thiago Sudafed Active Budesonide 0.5 MG/2ML 2 ml Inhalation On ce a day Active ZyrTEC Active Daliresp 500 MCG 1 tablet Orally Once a day Active Vitamin D3 1000 IU 1 ORAL daily; Durati on: -3 [facility] 10/18/2011 Active Diclofenac Sodium Ac tive [...] Body mass index 40+ - severely obese (075495883) Body mass index (BMI) 40.0-44.9, adult (Z68.41) Active confirmed Problem Menopause (234032545) Menopausal and female climacteric states (N95.1) Active confirmed Problem Hypothyroidism (79352642) Unspecified hypothyroidism (244.9) Active confirmed Major Problem Polycystic ovary syndrome (disorder) (949608340) Polycystic ovaries (256.4) Active confirmed Diag Problem Hyperlipidemia (15679195) Other and unspecified hyperlipidemia (272.4) Active confirmed Major Problem Obesity (415435698) Obesity, unspecified (278.00) Active confirmed Diag Problem Essential hypertension (44207872) Unspecified essential hypertension (401.9) Active confirmed Major Problem Asthma (disorder) (688417296) Asthma, unspecified, unspecified status (493.90) Active confirmed Major Problem Cyst of ovary (04252890) Other and unspecified ovarian cyst (620.2) Active confirmed Major Problem Abnormal vaginal bleeding (704050346) Other disorder of menstruation and other abnormal bleeding from female genital tract (626.8) Active confirmed Diag Problem Menopausal symptom (47811547) Symptomatic menopausal or female climacteric states (627.2) Active confirmed Major Problem Gynecological examination normal (312174526567821) Routine gynecological examination (V72.31) Active confirmed Major Problem Screening for malignant neoplasm of colon (529737541) Special screening for malignant neoplasms, colon (V76.51) [...] [facility] [employer] [address] [place], [place] [id number] YUMIKO GARZON Self - patient is [...] of Ureteral and Kidn ey Stones, Left [place] Teeth Extraction Kidney Stones LITHOTRIPSY - 07/2019, 05/2020 Hernia Repair 09/2013 Hospitalization History Reason Date(Month/Year) See Surgical Hx
--- OUTSIDE RECORDS SUMMARY | 2025-08-16 20:37 | XMS_ITS | Encounter Summary ---
Author Organization [facility] Address [address] [place] [address] [place] [phone] Phone Care Team Providers Care [employer] Referee Name Role Phone Tamia Garcia MD Primary Care Provider [phone] Encounter Details Date Type Department Care Team (Late st Contact Info) Description 09/15/[address] [facility] PERIOPERATIVE [facility]PT [address] [place] [address] Social History Tobacco Use Types Packs/Day Years Used Date Smoking Tobacco: Never Smokeless Tobacco: Never Alcohol Use Standard Drinks/Week Comments Yes 0 (1 standard drink = 0.6 oz pur e alcohol) Occasionally on vacation Education Answer Date Recorded Are you interested in more education? Not on eboni e 05/19/2023 Are you concerned about learning? Not on file 05/19/2023 No 05/19/2023 No 05/19/2023 Digital Access Answer Date Recorded No 05/19/2023 No 05/19/2023 Reliable internet access at home? Not on file 05/19/2023 Device with a working camera? Not on file Intimate Partner Violence Answer Date R ecorded Are you denied basic needs s uch as food, clothing, or medical care? No 09/15/2023 In the past 12 months have y ou been in a relationship with a person who hurts, threatens, or tries to control you? No 09/15/2023 Are you denied basic needs s uch as food, clothing, or medical care? No 09/15/2023 In the past 12 months have y ou been in a relationship with a person who hurts, threatens, or tries to control you? No 09/15/2023 Comments No Sex and Gender Information Value Date Recorded Sex Assigned at Female 05/19/2023 10:23 AM EDT Legal Sex Female 10:21 AM EDT Gender Identity Female 05/19/2023 10:23 AM EDT Sexual Orientation Straight 05/19/2023 10 :23 AM EDT documented as of this encounter Plan of Treatment Not on file documented as of this encounter Visit Diagnoses Not on filedocumented in this encounter Care Teams [employer] Referee Relationship Specialty Start Date End Date Tamia Garcia MD [address] [place] [phone] PCP - General Internal Medicine 05/19/23 documented as of this encounter Additional Source Comments The information contained in this document represents components of the legal health record. It is not the complete legal health record.[facility]
--- OUTSIDE RECORDS SUMMARY | 2025-08-16 20:37 | XMS_ITS | Clinical Summary ---
Author Organization [address] [place] [address] [place] [phone] Phone Care Team Providers Care Commercial Credit Officer Name Role Phone Tamia Garcia MD Primary Care Provider [phone] Allergies Active Allergy Reactions Criticality Noted Date Comments Dulaglutide 11/16/2020 Glipizide 07/05/2019 Levofloxacin 11/16/2020 Other Reaction(s): Myalgia and Joint Pain Morphine Medium 08/26/2016 Other Reaction(s): Rash/Dermatitis Oxycodone 11/30/2019 Penicillins Diarrhea,Hives,Itch ing,Shortness of breath High 02/23/2015 Other Reaction(s): Rash/Dermatitis Other reaction(s): Rash/Dermatitis Sulfa (Sulfonamide Antibiotics) Anaphylaxis,Hives,S hortness of breath High 09/07/2012 Other Reaction(s): Hives/Urticaria Breathing problems Other reaction(s): Hives, Breathing Difficulty, rash, hives, respiratory distress Medications dilTIAZem XR (DILACOR XR) 240 mg 24 hr capsule Take 1 Capsule by mouth daily for 360 days. 07/20/20 24 Active medical supply, miscellaneous (MISCELLANEOUS MEDICAL SUPPLY MISC) INSULIN PEN NEEDLE (B-D U/F PEN NEEDLE) 31G X 5 MM MISC USE WITH INSULIN PENS 3 TIMES DAILY 05/24/20 24 Active dilTIAZem (CARDIZEM) 30 mg immediate release tablet TAKE 1 TABLET BY MOUTH NEEDED ( NEED FOR PALPITATIONS). 04/22/20 24 Active blood-glucose meter,continuous (Dexcom G7 Insole Tacker) [facility] USE CONTINUOUSLY. 06/23/20 23 Active levalbuterol (XOPENEX) 0.63 mg/3 mL nebulizer solution Take 1 Ampule by nebulization every 4 hours as needed for Wheezing. 10/14/20 22 Active tiotropium (Spiriva Respimat) 1.25 mcg/actuation inhalation spray if needed. 10/14/20 Active cetirizine (ZyrTEC) 10 mg tablet Take 10 mg by mouth 2 times daily. Active medical supply, miscellaneous (MISCELLANEOUS MEDICAL SUPPLY [facility]) BLOOD GLUCOSE CALIBRATION (OT ULTRA/FASTTK CNTRL SOLN) SOLUTION As needed 05/20/20 Active OneTouch Ultra Test test strip 3 times a day. 05/20/20 22 Active omalizumab (XOLAIR) 150 mg injection Total dose 375mg Act thiago omalizumab (Xolair) 75 mg/0.5 mL syringe subcutaneous syringe Total dose 375mg Act thiago budesonide (PULMICORT) 0.25 mg/2 mL nebulizer solution Inhale 0.5 mg into the lungs 2 times daily. 11/16/19 21 Active glucose blood (BluLink Glucose Test Strip) test strip ONE TOUCH BASIC STRIPS 1 Each by Does not apply route daily. 07/24/20 Active zolpidem (AMBIEN) 5 mg tablet Take by mouth at bedtime as needed. Active arformoteroL (BROVANA) 15 mcg/2 mL nebulizer solution Take 15 mcg by nebulization 2 times daily. Active diclofenac (Voltaren Arthritis Pain) 1 % topical gel Place onto the skin. Active montelukast (SINGULAIR) 10 mg tablet Take 1 Tab by mouth at bedtime. 02/13/20 Active albuterol HFA (PROAIR HFA ; PROVENTIL HFA ; VENTOLIN HFA) 90 mcg/actuation inhaler Inhale 2 puffs by mouth every 4 (four) hours if needed. Active omeprazole (PRILOSEC) 20 mg tablet,delayed release (DR/EC) 1 (one) time each day. Active multivitamin (MULTIPLE VITAMINS ORAL) Take by mouth. Active roflumilast (Daliresp) 500 mcg tablet TAKE 1 TABLET BY MOUTH EVERY DAY Active Eliquis 5 mg tablet TAKE 1 TABLET TWICE A DAY 180 tablet 3 08/30/20 24 Active diphenoxylate-atr opine (LOMOTIL) 2.5-0.025 mg per tablet Take 1 tablet by mouth 4 (four) times a day if needed for diarrhea. 60 tablet 3 09/01/20 24 Active levothyroxine (SYNTHROID, LEVOTHROID) 112 mcg tabletIndications :Type 2 diabetes mellitus without complications ([facility] V24, [facility] V28) TAKE 1 TABLET BY MOUTH EVERY DAY 90 tablet 3 03/10/20 25 Active NovoLOG Flexpen U-100 Insulin 100 unit/mL (3 mL) injection penIndications:Ty pe 2 diabetes mellitus without complications ([facility] V24, [facility] V28) DIRECTED PER SLIDING SCALE, BEFORE MEALS THREE TIMES A DAY UPTO 25 UNITS A DAY. 15 mL 3 03/10/20 25 Active Tresiba FlexTouch U-100 100 unit/mL (3 mL) injection pen INJECT 10 UNITS INTO THE SKIN DAILY 15 mL 1 03/10/20 25 Active rosuvastatin (CRESTOR) 40 mg tablet TAKE 1 TABLET BY MOUTH EVERY DAY 90 tablet 1 03/18/20 25 Active metFORMIN (GLUCOPHAGE) 500 mg tabletIndications :Type 2 diabetes mellitus without complications ([facility] V24, [facility] V28) TAKE 2 TABLETS BY MOUTH TWICE A DAY WITH MEALS 360 tablet 1 04/01/20 25 Active Dexcom G7 Sensor deviceIndications :Type 2 diabetes mellitus without complications ([facility] V24, [facility] V28) USE TO MONITOR BLOOD SUGAR. CHANGE SENSOR EVERY 10 DAYS 3 each 5 05/03/20 25 Active cholecalciferol, vitD3,/vit K2 (vitamin D3-vitamin K2) 250 mcg (10,000 unit)-45 mcg capsule Take by mouth. Activ e ferrous gluconate (FERGON) 324 mg (38 mg iron) tablet Take 1 tablet (324 mg total) by mouth 1 (one) time each day. Active MAGNESIUM GLYCINATE ORAL Take by mouth. Active lisinopriL (PRINIVIL,ZESTRIL ) 10 mg tablet TAKE 1 TABLET BY MOUTH EVERY DAY 90 tablet 05/26/20 25 Active BD Ultra-Fine Mini Pen Needle 31 gauge x 3/16 needleIndications :Type 2 diabetes mellitus without complications ([facility] V24, [facility] V28) USE WITH INSULIN PENS 3 TIMES DAILY 300 each 2 05/27/20 25 Active aspirin 81 mg EC tablet TAKE 1 TABLET BY MOUTH 1 TIME EACH DAY. 90 tablet 2 06/02/20 25 Active Jardiance 25 mg tabletIndications :Type 2 diabetes mellitus without complications ([facility] V24, [facility] V28) TAKE 1 TABLET BY MOUTH EVERY DAY 90 tablet 1 07/07/20 25 Active azithromycin (ZITHROMAX) 250 mg tablet TAKE 2 TABLETS BY MOUTH ON DAY 1, THEN TAKE 1 TABLET DAILY ON DAYS 2 THROUGH 10 01/07/20 25 Active doxycycline (VIBRAMYCIN) 100 mg capsule Take 1 capsule (100 mg total) by mouth 2 (two) times a day. for 14 days 11/09/19 25 Active EPINEPHrine (EPIPEN) 0.3 mg/0.3 mL injection INJECT 1 PEN INTO OUTER THIGH NEEDED FOR ANAPHYLAXIS AND THEN CALL 911 05/25/20 25 Active predniSONE (DELTASONE) 10 mg tablet TAKE 4 TABS X 2 DAYS, 3 TABS X 2 DAYS, 2 TABS X 2 DAYS, 1 TAB X 2 DAYS THEN 1/2 TAB X 2 DAYS. 01/07/20 25 Active tobramycin-dexAME THasone (TOBRADEX) ophthalmic suspension 08/02/20 25 Active dicyclomine (BENTYL) 20 mg tablet Take 1 tablet (20 mg total) by mouth 4 (four) times a day (before meals and nightly). 120 each 08/10/20 25 025 Active amitriptyline (ELAVIL) 25 mg tablet Take 1 tablet (25 mg total) by mouth at bedtime. at bedtime. 90 each 3 08/10/20 25 026 Active amitriptyline (ELAVIL) 25 mg tablet Take 1 tablet (25 mg total) by mouth at bedtime. at bedtime. 90 tablet 05/13/20 25 025 Discontin ued(Reord er) Active Problems Problem Noted Date Diagnosed Date Abnormal vaginal bleeding 08/05/2025 Cyst of ovary 08/05/2025 Menopausal and female climacteric states 025 Menopausal symptom 08/05/2025 Abdominal pain 08/10/2024 Hypothyroidism 08/10/2024 Overview (08/10/2024): Was seen in [facility] but will be following with us Polycystic ovary disease 08/10/2024 Overview (08/10/2024): Dr Uriostegui Class 2 severe obesity due t o excess calories with serious comorbidity and body mass index (BMI) of 39.0 to 39.9 in adult 08/10/2024 Atrial flutter ([facility] V24, [facility] V28) 2021 Overview (08/10/2024): Last Assessment & [...] her creatinine is less than 1.4. Her [id number] score is 3 for hypertension, diabetes and [...] 10/29/2018 Diabetes mellitus type 2, un complicated ([facility] V24, [facility] V28) 06/12/2017 Overview (08/10/2024): Last Assessment & Plan: Hemoglobin A1c from October 2023 7.0. Continue to follow with endocrine. Supraventricular tachycardia (CMS/HCC V24) 01/14 Overview (08/10/2024): 09/08/2020 PVCA added palpitations and tachycardia. Low ferritin 08/27/2016 Asthma, well controlled 08/26/2016 Overview (08/10/2024): Dr Small at [place], pul, investment manager Dr Prakash office at [facility] [...] as tolerated. Fatty liver 01/12/2016 Overview (08/10/2024): [facility] Umbilical hernia 04/12/2013 Hyperlipidemia 11/29/2012 Overview (08/10/2024): [...] B cystoscopy Dr Moeller ( sp )? [facility] 08/06/2016; 04/14/19 lithotripsy BERENICE on CPAP 09/07/2012 Overview (08/10/2024): Auto CPAP 9-12 Encounters Date Type Department Care Team Description 08/10/2025 1:40 PM EDT Office Visit Gastroenterology - [place] [facility] [address] [facility] [address] [place] [phone] Remedios Marrufo NP Chronic diarrhea (Primary Dx); Abdominal cramping; History of adenomatous polyp of colon; Fatty liver; Obesity (BMI 30-39.9) 08/04/2025 2:00 PM EDT Office Visit Endocrinology [address] [phone] Rachel Schreiber MD Type 2 diabetes mellitus without complication, with long-term current use of insulin (CMS/HCC V24, CMS/HCC V28) (Primary Dx) 07/15/2025 8:30 AM EDT Office Visit Adult Medicine [address] [phone] Tamia Garcia MD Primary hypertension (Primary Dx); Hyperlipidemia, unspecified hyperlipidemia type; 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 [address] [place] [address] Jaylan Alvarado DO Dasilva, John E, MD 05/23/2025 7:09 AM EDT - 05/23/2025 11:59 PM EDT Hospital Encounter [facility] [address] [place] [phone] Winston Linares MD Walsh, Michael, DO Couture, Alison, CRNA History of colon polyps Discharge Disposition: Home or Self Care from Last 3 Months Immunizations Immunization Administration Dates Next Due Hepatitis A Adult (Havrix; V aqta) 19yo and older 02/12/2017,11/08/2016 Hepatitis B (Ztyjbil-M-Zdrar , Recombivax HB-Adult) 19yo and older 08/19/2003,03/03/2003,09/10/2002 [...] ular pertussis (Boostrix; Adacel) 7yo and older 03/14/2025,01/25/2014 Surgical History Surgery Date Site/Laterality Comments WISDOM TOOTH EXTRACTION 1980 PROCEDURE: HISTORICAL WISDOM TEETH EXTRACTION OTHER SURGICAL HISTORY 1995 PROCEDURE: REPAIR DETACHED RETINA; COMMENT: right eye OTHER SURGICAL HISTORY 2005 PROCEDURE: OH REPAIR PRIMARY OPEN/PRQ RUPTURED ACHILLES TENDON; COMMENT: left leg KIDNEY STONE SURGERY PROCEDURE: [place] NEPHROLITHOTOMY REMOVAL CALCULUS HERNIA REPAIR 09/2013 PROCEDURE: REPAIR UMBILICAL HERNIA; COMMENT: DR. Morgan CYSTOSCOPY PROCEDURE: OH CYSTOURETHROSCOPY; COMMENT: Dr Jonathan lugo COLONOSCOPY 01/03/2017 PROCEDURE: HISTORICAL COLONOSCOPY; COMMENT: small right colon and cecal polyps: Tubular adenoma 2. TOTAL KNEE ARTHROPLASTY 06/2012 PROCEDURE: OH ARTHRP KNE CONDYLE&PLATU MEDIAL&LAT COMPARTMENTS; COMMENT: right knee LITHOTRIPSY 04/14/2019 Left PROCEDURE: HISTORICAL LITHOTRIPSY; COMMENT: Dr. Hallman COLONOSCOPY 12/03/2019 PROCEDURE: HISTORICAL COLONOSCOPY; COMMENT: Visually normal; random biopsies obtained: Biopsies were normal. UPPER GASTROINTESTINAL ENDOSCOPY 12/03/2019 PROCEDURE: OH UPPER GI ENDOSCOPY PERFORMED; COMMENT: Scattered small fundic gland polyps, otherwise visually normal, duodenal biopsies obtained: Duodenal biopsies normal. Medical History Medical History Date Comments Asthma DX:Asthma Polycystic ovary disease DX:Poly cystic ovary disease; COMMENT: Dr Uriostegui Kidney stones 11/29/2012 DX:Kidney stones ; COMMENT: B cystoscopy Dr Moeller ( sp )? [facility] 08/06/2016 Severe persistent asthma, well-controlled ([facility] V28) 08/26/2016 DX:Severe persistent ast hma, well-controlled; COMMENT: Dr Small at [place], pul, investment manager Dr Prakash [facility] Hypertension 08/26/2016 DX:Hypertension Diabetes mellitus type 2, uncomplicated ([facility] V24, [facility] V28) 06/12/2017 DX:Diabetes mellitus type 2, uncomplicated ([facility]) Fatty liver 01/12/2016 DX:Fatty liver; COMMENT: [facility] Hyperlipidemia with target L DL less than 100 11/29/2012 DX:Hyperlipidemia with targe t LDL less than 100; COMMENT: IMO update Low ferritin 08/27/2016 DX:Low ferritin Supraventricular tachycardia ([facility] V24) 01/14/2017 DX:Supraventricular tachycar danish ([facility]); COMMENT: 09/08/2020 PVCA added palpitations and tachycardia. 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 Hypothyroidism DX:Hypothyroidis m; COMMENT: Was seen in [facility] but will be following with us Hyperlipidemia 11/29/2012 DX:Hyperlipidemi a Degenerative disc disease, lumbar 05/13/2019 DX:Degenerative disc disease, lumbar Class 2 severe obesity due t o excess calories with serious comorbidity and body mass index (BMI) of 39.0 to 39.9 in adult 05/13/2019 DX:Class 2 severe obesi ty due to excess calories with serious comorbidity and [...] DX:Abdominal emily n Fatty liver DX:Fatty liver Hard to intubate Family History Medical History Relation Name Comments Other: heart disease Brother 1 atrial flutter Brother 2 Pancreatic cancer Father Other: heart diseas Maternal Grandfather Other: heart disease Maternal Grandmother Heart attack Mother Other: heart disease Paternal Grandfather Lung cancer Paternal Grandmother Other cancer Paternal Grandmother mouth atrial flutter Sister 2 Colon cancer Neg Hx Crohn's disease Neg Hx Ovarian cancer Neg Hx Ulcerative colitis Neg Hx Relation Name Status Comments Brother 1 Brother 2 Alive Jaylan, chol Father (Age 61) panc [...] drink = 0.6 oz pur e alcohol) rare Housing Instability Answer Date Recorde d Are you worried that in the next 2 months you may not have stable housing? No 03/13/2025 Food Access & Nutrition Answer Date Rec orded Do you have access to a vari ety of food including fruits and vegetables? Yes 03/13/2025 Access to Healthcare Answer Date Record ed Within the last 3 months, ho w many times did you visit the emergency department for your medical care? 0 03/13/2025 Health Literacy Answer Date Recorded How often do you need to hav e someone help you when you read instructions, pamphlets, or other written material from your doctor or pharmacy? Never 03/13/2025 Caregiver: How often do you need to have someone help you when you read instructions, pamphlets, or other written material from your doctor or pharmacy? Not on file 03/13/2025 Financial Risk Answer Date Recorded How hard is it for you to pa y for the very basics like food, housing, medical care, and air conditioning / heating? Not very hard 03/13/2025 Transportation Answer Date Recorded Has the lack of transportati on kept you from meetings, work, or from getting things needed for daily living? No Has the lack of transportati on kept you from medical appointments or from getting medications? No 03/13/2025 Social Isolation Answer Date Recorded How often do you feel lonely or isolated from ose around you? Rarely 03/13/2025 Food Risk Answer Date Recorded Within the past 12 months we worried whether our food would run out before we got money to buy more. Never true 03/13/2025 Within the past 12 months th e food we bought just didn't last and we didn't have money to get more. Never true 03/13/2025 Dependent Care Answer Date Recorded Do you need help finding or paying for care for your loved ones. For example, special needs child caregiver or elderly care for an older adult? No 03/13/2025 Education Answer Date Recorded Do you think completing more education or training, like finishing a GED, going to college, or learning a trade, would be helpful for you? No 03/13/2025 Employment and Income Answer Date Recor ded During the last four weeks, have you been actively looking for work? No 03/13/2025 Living Situation Answer Date Recorded What is your living situation? Unrecognized valu e 03/13/2025 Interpersonal Safety Answer Date Record ed Physical Abuse Unrecognized value 05/23/2025 Verbal Abuse Unrecognized value 05/23/2025 Comments No Sex and Gender Information Value Date Recorded Sex Assigned at Female 09/21/2024 2:19 PM EST Legal Sex Female 6:34 PM EST Gender Identity Female 09/21/2024 2:19 PM EST Sexual Orientation Choose not to disclose 2023 2:19 PM EST Obstetrics History Last Filed Vital Signs Vital Sign Reading Time Taken Comments Blood Pressure 120/50 08/10/2025 1:35 PM EDT Pulse 90 08/10/2025 1:35 PM EDT Temperature 36.2 C (97.2 F) 08/04/2025 1:56 PM EDT Respiratory Rate 14 08/04/2025 1:56 PM EDT Oxygen Saturation 94% 08/10/2025 1:35 PM EDT Inhaled Oxygen Concentration - - Weight 94.9 kg (209 lb 3.2 oz) 08/10/2025 1:35 P M EDT Height 165.1 cm (5' 5 ) 08/10/2025 1:35 PM EDT Body Mass Index 34.81 08/10/2025 1:35 PM EDT Plan of Treatment Upcoming Encounters Date Type Department Care Team (Late st Contact Info) Description 09/29/2025 12:00 PM EST Office Visit Endocrinology - [address] [phone] Milena Garcia PA [address] [place], [place] 02/28/2026 1:20 PM EDT Office Visit Gastroenterology - [facility] [address] [facility] [address] [place] [phone] Remedios Marrufo, NORA [address] [facility] [address] [place] [address] 03/15/2026 8:30 AM EDT Office Visit Adult [facility] - [address] [phone] Patrick Jasmine PA [address] [place] [address] Health Maintenance Due Date Last Done Comments Diabetes: Annual Foot Exam 01/10/1972 RSV Immunization Adult Patients (1 - Risk 50-74 years 1-dose series) 01/10/2012 HIV Screening 10/05/2022 COVID-19 Vaccine ( season) 2025 08/31/2023, 08/15/2023, 08/19/2022, Additional history exists Influenza Vaccine (#1) 2025 , 03/17/2023, 08/02/2022, Additional history exists Diabetes: Annual Retina Eye Exam 08/26/2025 Postponed from 01/10/1972 (Supply/Drug Shortage) Diabetes: Blood Sugar Control Test (HGBA1C) 11/02/2025 05/02/2025, 05/13/2024, 05/13/2024 Social Influencers of Health Screening 03/13/2026 03/13/2025 Diabetes: Annual GFR (Glomerular Filtration Rate) 03/14/2026 03/14/2025, 05/13/2024, 05/13/2024 Hypertension/CHF/CAD Annual BMP Blood Test 03/14/2026 03/14/2025, 05/13/2024, 05/13/2024 Zoster Vaccines (1 of 2) 03/14/2026 Pos tponed from 01/10/2012 (Supply/Drug Shortage) Diabetes: Annual Urine Albumin-Creatinine Ratio (uACR) 05/02/2026 05/02/2025, 05/13/2024 Colorectal Cancer Screening: Colonoscopy 05/23/2026 05/23/2025, 12/03/2019 Breast Cancer Screening 10/14/2026 10/14/2024 Cervical Cancer Screening: HPV 01/13/2029 01/14/2024 Cholesterol Screening (Lipid Panel) 03/14/2030 03/14/2025, 05/13/2024, 05/13/2024 DTaP,Tdap,and Td Vaccines (4 - Td or Tdap) 03/14/2035 03/14/2025, 01/25/2014, 08/27/2002 MMR Vaccines Aged Out 10/08/2002, 09/15/2002 No lo nger eligible based on patient's age to complete this topic Hepatitis B Vaccines Completed 08/19/2003, 03/03/2003, 09/10/2002 Hepatitis C Screening Completed 03/04/2014 Hepatitis A Vaccines Aged Out 02/12/2017, 11/08/19 17 No longer eligible based on patient's age to complete this topic Pneumococcal Vaccine: 50+ Years Completed 09/27/2022, 01/25/2014 Depression Screening Completed 03/13/2025 HIB Vaccines Aged Out No longer eligi [...] Procedure Name Priority Date/Time Associated Diagnosis Comments ENDOMYSIAL ANTIBODY, IGA Routine 08/10/2025 2:18 PM EDT Chronic diarrhea Abdominal cramping IMMUNOGLOBULIN IGA Routine 08/10/2025 2: 18 PM EDT Chronic diarrhea Abdominal cramping TISSUE TRANSGLUTAMINASE, IGG Routine 08/10/2025 2:18 PM EDT Chronic diarrhea Abdominal cramping CBC WITH AUTO DIFFERENTIAL Routine 07/15/2025 9:18 AM EDT History of anemia CBC AND DIFFERENTIAL Routine 07/15/2025 9:18 AM EDT History of anemia IRON AND TIBC Routine 07/15/2025 9:18 AM EDT History of anemia FERRITIN Routine 07/15/2025 9:18 AM EDT History of anemia THYROID STIMULATING HORMONE WITH REFLEX TO FREE T4 AND FREE T3 Routine 07/15/2025 9:18 AM EDT 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 COLONOSCOPY Routine 05/23/2025 8:50 AM EDT History of colon polyps TISSUE EXAM Routine 05/23/2025 8:31 AM EDT History of colon polyps MICROALBUMIN CREATININE URINE RATIO Routine 05/02/2025 2:52 PM EDT Type 2 diabetes mellitus without complication, with long-term current use of insulin ([facility] V24, [facility] V28) HEMOGLOBIN A1C Routine 05/02/2025 2:52 PM EDT Type 2 diabetes mellitus without complication, with long-term current use of insulin (CMS/HCC V24, CMS/HCC V28) COMPREHENSIVE METABOLIC PANEL Routine 03/14/2025 9:52 AM EDT Routine physical examination LIPID PANEL WITH REFLEX TO DIRECT LDL Routine 03/14/2025 9:52 AM EDT Hyperlipidemia, unspecified hyperlipidemia type EXTERNAL MAMMOGRAM REPORT 10/14/2024 HPV Routine 01/14/2024 HEPATITIS C SCREENING Routine 03/04/2014 from Last 3 Months or Most Recently Relevant to Health Maintenance Results * Endomysial antibody, IgA (08/10/2025 2:18 PM EDT) Pathologist [facility] Endomysial IgA Negative Negative 08/12/2025 10:48 AM EDT [facility] Blood Venous blood specimen / Unknown Venipuncture / Unknown 08/10/2025 2:18 PM EDT 08/10/2025 2:18 PM EDT Remedios Marrufo [facility] BLOOD ORDERABLES Final Resu lt [facility] [address] [place] [address], * Tissue transglutaminase, IgG (08/10/2025 2:18 PM EDT) t-Transglutamin ase (tTG) IgG <2 0 - 5 U/mL 08/12/2025 9:05 PM EDT [facility] Comment: Negative 0 - 5 Weak Positive 6 - 9 Positive >9 Blood Venous blood specimen / Unknown Venipuncture / Unknown 08/10/2025 2:18 PM EDT 08/10/2025 2:18 PM EDT Narrative [facility] - 08/12/2025 9:05 PM EDT Performed at: - [facility] [address] [id number] [employer] Master: Ambreen Melgar MD, Phone: [phone] Remedios Cerdaugua [facility] BLOOD ORDERABLES Final Resu lt [facility] * Immunoglobulin IgA (08/10/2025 2:18 PM EDT) Pathologist [facility] IgA 129 61 - 348 mg/dL LAB CHEMISTRY METHOD 08/10/2025 6:33 PM EDT [facility] Blood Venous blood specimen / Unknown Venipuncture / Unknown 08/10/2025 2:18 PM EDT 08/10/2025 2:18 PM EDT Remedios Niru [facility] BLOOD ORDERABLES Final Resu lt Performing Organization Address City/[facility]/ZIP Co de Phone Number [facility] [address] [place] [address], [place] [phone] * Thyroid stimulating hormone with reflex to free t4 and free t3 (07/15/2025 9:18 AM EDT) [facility] TSH 2.91 0.40 - 4.00 mcIU/mL LAB CHEMISTRY METHOD 07/15/2025 2:50 PM EDT [facility] Blood Venous blood specimen / Unknown Venipuncture / Unknown 07/15/2025 9:18 AM EDT 07/15/2025 9:18 AM EDT Tamia Garcia MD LAB BLOOD ORDERABLES Final Resul t [facility] [address] [place] [address], [place] [phone] * (ABNORMAL) CBC auto differential (07/15/2025 9:18 AM EDT) Pathologist [facility] WBC 7.8 4.8 - 10.8 K/mcL LAB HEMETOLOGY METHOD 07/15/2025 10:28 AM [facility] RBC 4.40 3.80 - 4.80 M/mcL LAB HEMETOLOGY METHOD 07/15/2025 10:28 AM [facility] Hemoglobin 13.0 11.5 - 16.0 g/dL LAB HEMETOLOGY METHOD 07/15/2025 10:28 AM [facility] Hematocrit 41.0 35.0 - 47.0 % LAB HEMETOLOGY METHOD 07/15/2025 10:28 AM [facility] MCV 92.8 79.0 - 98.0 FL LAB HEMETOLOGY METHOD 07/15/2025 10:28 AM [facility] MCH 29.4 27.0 - 32.0 pcg LAB HEMETOLOGY METHOD 07/15/2025 10:28 AM [facility] MCHC 31.7(L) 32.0 - 37.0 g/dL LAB HEMETOLOGY METHOD 07/15/2025 10:28 AM [facility] RDW 15.8(H) 11.0 - 15.0 % LAB HEMETOLOGY METHOD 07/15/2025 10:28 AM [facility] Platelets 219 130 - 400 K/mcL LAB HEMETOLOGY METHOD 07/15/2025 10:28 AM [facility] MPV 9.8 7.0 - 11.0 FL LAB HEMETOLOGY METHOD 07/15/2025 10:28 AM [facility] NRBC 0.0 <1.0 % LAB HEMETOLOGY METHOD 07/15/2025 10:28 AM [facility] NRBC Absolute 0.00 <0.10 K/mcL LAB HEMETOLOGY METHOD 07/15/2025 10:28 AM [facility] Neutrophils Relative 55.5 % LAB HEMETOLOGY METHOD 07/15/2025 10:28 AM [facility] Lymphocytes Relative 34.6 % LAB HEMETOLOGY METHOD 07/15/2025 10:28 AM [facility] Monocytes Relative 6.8 % LAB HEMETOLOGY METHOD 07/15/2025 10:28 AM [facility] Eosinophils Relative 1.8 % LAB HEMETOLOGY METHOD 07/15/2025 10:28 AM [facility] Basophils Relative 0.5 % LAB HEMETOLOGY METHOD 07/15/2025 10:28 AM [facility] Immature Granulocytes Relative 0.8 % LAB HEMETOLOGY METHOD 07/15/2025 10:28 AM [facility] Neutrophils Absolute 4.31 1.50 - 7.00 K/mcL LAB HEMETOLOGY METHOD 07/15/2025 10:28 AM [facility] Lymphocytes Absolute 2.69 1.00 - 5.00 K/mcL LAB HEMETOLOGY METHOD 07/15/2025 10:28 AM [facility] Monocytes Absolute 0.53 0.20 - 1.00 K/mcL LAB HEMETOLOGY METHOD 07/15/2025 10:28 AM [facility] Eosinophils Absolute 0.14 0.00 - 0.50 K/mcL LAB HEMETOLOGY METHOD 07/15/2025 10:28 AM [facility] Basophils Absolute 0.04 0.00 - 0.20 K/mcL LAB HEMETOLOGY METHOD 07/15/2025 10:28 AM [facility] Immature Granulocytes Absolute 0.06(H) 0.00 - 0.03 K/mcL LAB HEMETOLOGY METHOD 07/15/2025 10:28 AM [facility] Blood Venous blood specimen / Unknown Venipuncture / Unknown 07/15/2025 9:18 AM EDT 07/15/2025 9:18 AM EDT us Tamia Garcia MD LAB BLOOD ORDERABLES Final Resul t Performing Organization Address City/[facility]/ZIP Co de Phone Number [facility] [address] [place] [address], [place] [phone] * Iron and TIBC (07/15/2025 9:18 AM EDT) Iron 73 40 - 150 mcg/dL LAB CHEMISTRY METHOD 07/15/2025 2:17 PM EDT [facility] TIBC 405 250 - 450 mcg/dL LAB CHEMISTRY METHOD 07/15/2025 2:17 PM EDT [facility] Iron Saturation 18 15 - 50 % LAB CHEMISTRY METHOD 07/15/2025 2:17 PM EDT [facility] Blood Venous blood specimen / Unknown Venipuncture / Unknown 07/15/2025 9:18 AM EDT 07/15/2025 9:18 AM EDT us Tamia Garcia MD LAB BLOOD ORDERABLES Final Resul t Performing Organization Address [facility]/ZIP Co de Phone Number [facility] [address] [place] [address], [place] [phone] * Ferritin (07/15/2025 9:18 AM EDT) Ferritin 15 8 - 252 ng/mL LAB CHEMISTRY METHOD 07/15/2025 1:15 PM EDT [facility] Blood Venous blood specimen / Unknown Venipuncture / Unknown 07/15/2025 9:18 AM EDT 07/15/2025 9:18 AM EDT us Tamia Garcia MD LAB BLOOD ORDERABLES Final Resul t Performing Organization Address City/[facility]/ZIP Co de Phone Number [facility] [address] [place] [address], [place] [phone] * COLONOSCOPY Anesthesia - MAC; [facility] ENDOSCOPY (05/23/2025 8:50 AM EDT) Anatomical Region Laterality Modality Endoscopy 05/23/2025 8:24 AM EDT Impressions 05/23/2025 8:54 AM EDT - One 20 mm polyp in the rectum at 18 cm proximal to the anus, removed piecemeal using a hot snare. Resected and retrieved. Clip was placed. Clip barge captain: [employer]. Tattooed. - One 7 mm polyp in the sigmoid colon, removed with a cold snare. Resected and retrieved. - Two 6 to 7 mm polyps in the descending colon, removed with a cold snare. Resected and retrieved. - One 13 mm polyp in the cecum, removed piecemeal using a hot snare. Resected and retrieved. Clip was placed. Clip barge captain: [employer]. - The examination was otherwise normal on direct and retroflexion views. Recommendation: - Await pathology results. - Repeat colonoscopy in 1 year for surveillance. Narrative 05/23/2025 8:[address] [facility] Patient Name: Jatinder Garzon Procedure Date: 05/23/2025 8:24 AM Date of : 1960 Age: 65 Room: ROOM 15 Gender: Female Note Status: Finalized Attending MD: Winston Linares MD, Procedure Date No Time: 05/23/2025 Procedure: Colonoscopy Indications: High risk colon cancer surveillance: Personal history of colonic polyps Providers: Winston Linares MD Referring MD: Winston Linares MD Medicines: Propofol per Anesthesia Complications: No immediate complications. Estimated Blood Loss: Estimated blood loss was minimal. Procedure: Pre-Anesthesia Assessment: - ASA Grade Assessment: III - A patient with severe systemic disease. After I obtained informed consent, the scope was passed under direct vision. Throughout the procedure, the patient's blood pressure, pulse, and oxygen saturations were monitored continuously.The Olympus Pediatric Colonoscope was introduced through the anus and advanced to the terminal ileum. The colonoscopy was performed without difficulty. The patient tolerated the procedure well. The quality of the bowel preparation was good. Findings: The perianal and digital rectal examinations were normal. A 20 mm polyp was found in the rectum at 18 cm proximal to the anus. The polyp was sessile. The polyp was removed with a piecemeal technique using a hot snare. Resection and retrieval were complete. To prevent bleeding after the polypectomy, one hemostatic clip was successfully placed. Clip barge captain: [employer]. There was no bleeding during, or at the end, of the procedure. Area was tattooed with an injection of 2 mL of Erum ink. A 7 mm polyp was found in the sigmoid colon. The polyp was sessile. The polyp was removed with a cold snare. Resection and retrieval were complete. Two sessile polyps were found in the descending colon. The polyps were 6 to 7 mm in size. These polyps were removed with a cold snare. Resection and retrieval were complete. A 13 mm polyp was found in the cecum. The polyp was sessile. The polyp was removed with a piecemeal technique using a hot snare. Resection and retrieval were complete. To prevent bleeding after the polypectomy, one hemostatic clip was successfully placed. Clip barge captain: [employer]. There was no bleeding at the end of the procedure. The exam was otherwise without abnormality on direct and retroflexion views. Procedure Code(s): --- Professional --- 83833, Colonoscopy, flexible; with removal of tumor(s), polyp(s), or other lesion(s) by snare technique [id number], Colonoscopy, flexible; with directed submucosal injection(s), any substance Diagnosis Code(s): --- Professional --- Z86.010, Personal history of colonic polyps D12.8, Benign neoplasm of rectum D12.5, Benign neoplasm of sigmoid colon D12.0, Benign neoplasm of cecum D12.4, Benign neoplasm of descending colon CPT copyright 2020 [employer]. All rights reserved. The codes documented in this report are preliminary and upon clinical molecular geneticist review may be revised to meet current compliance requirements. Winston Linares MD 05/23/2025 8:54:48 AM This report has been signed electronically.Winston Linares MD Number of Addenda: 0 Note Initiated On: 05/23/2025 8:24 AM Scope In: Scope Out: Endoscopy Department at [facility] - [address] [place] [id number] Procedure Note Winston Linares MD - 05/23/2025 [facility] Patient Name: Jatinder Garzon Procedure Date: 05/23/2025 8:24 AM Date of : 1960 Age: 65 Room: ROOM 15 Gender: Female Note Status: Finalized Attending MD: Winston Linares MD, Procedure Date No Time: 05/23/2025 Procedure: Colonoscopy Indications: High risk colon cancer surveillance: Personalhistory of colonic polyps Providers: Winston Linares MD Referring MD: Winston Linares MD Medicines: Propofol per Anesthesia Complications: No immediate complications. Estimated Blood Loss: Estimated blood loss was minimal. Procedure: Pre-Anesthesia Assessment: - ASA Grade Assessment: III - A patient with severe systemic disease. After I obtained informed consent, the scope was passed under direct vision. Throughout theprocedure, the patient's blood pressure, pulse, and oxygen saturations were monitored continuously.The Olympus Pediatric Colonoscope was introduced through theanus and advanced to the terminal ileum. The colonoscopy was performed without difficulty. The patient tolerated the procedure well. The quality of thebowel preparation was good. Findings: The perianal and digital rectal examinations were normal. A 20 mm polyp was found in the rectum at 18 cm proximal to the anus. The polyp was sessile. Thepolyp was removed with a piecemeal technique using a hot snare. Resection and retrieval were complete. To prevent bleeding after the polypectomy, onehemostatic clip was successfully placed. Clip barge captain: [employer]. There was no bleeding during, orat the end, of the procedure. Area was tattooed withan injection of 2 mL of Erum ink. A 7 mm polyp was found in the sigmoid colon. Thepolyp was sessile. The polyp was removed with a coldsnare. Resection and retrieval were complete. Two sessile polyps were found in the descendingcolon. The polyps were 6 to 7 mm in size. These polypswere removed with a cold snare. Resection and retrieval were complete. A 13 mm polyp was found in the cecum. The polyp was sessile. The polyp was removed with a piecemeal technique using a hot snare. Resection andretrieval were complete. To prevent bleeding after the polypectomy, one hemostatic clip was successfully placed. Clip barge captain: [employer]. There was no bleeding at the end of the procedure. The exam was otherwise without abnormality ondirect and retroflexion views. Procedure Code(s): --- Professional --- 94183, Colonoscopy, flexible; with removal of tumor(s), polyp(s), or other lesion(s) by snare technique [id number], Colonoscopy, flexible; with directedsubmucosal injection(s), any substance Diagnosis Code(s): --- Professional --- Z86.010, Personal history of colonic polyps D12.8, Benign neoplasm of rectum D12.5, Benign neoplasm of sigmoid colon D12.0, Benign neoplasm of cecum D12.4, Benign neoplasm of descending colon CPT copyright 2020 [employer]. All rights reserved. The codes documented in this report are preliminary and upon clinical molecular geneticist reviewmay be revised to meet current compliance requirements. Winston Linares MD 05/23/2025 8:54:48 AM This report has been signed electronically.Winston Linares MD Number of Addenda: 0 Note Initiated On: 05/23/2025 8:24 AM Scope In: Scope Out: Endoscopy Department at [facility] - [address] [place] [phone] IMPRESSION: - One 20 mm polyp in the rectum at 18 cm proximal to the anus, removed piecemeal using a hot snare. Resected and retrieved. Clip was placed. Clip barge captain: [employer]. Tattooed. - One 7 mm polyp in the sigmoid colon, removed witha cold snare. Resected and retrieved. - Two 6 to 7 mm polyps in the descending colon, removed with a cold snare. Resected andretrieved. - One 13 mm polyp in the cecum, removed piecemeal using a hot snare. Resected and retrieved. Clip was placed. Clip barge captain: [employer]. - The examination was otherwise normal on directand retroflexion views. Recommendation: - Await pathology results. - Repeat colonoscopy in 1 year for surveillance. us Winston Linares MD GI~PROCEDURE ORDERABLES Fin al Result * Tissue exam (05/23/2025 8:31 AM EDT) Final Diagnosis A. Descending Colon, polyps x 2: Tubular adenomas, fragmented. B. Cecum, polyp: Tubular adenoma, fragmented. C. Transverse Colon, polyp: Tubular adenoma. D. Sigmoid Colon, polyp: Benign strip of colonic mucosa with no specific pathologic change. No dysplasia or neoplasia identified. E. Colon, polyp at 20 cm: Tubular adenoma with villous features. 05/24/2025 1:06 PM EDT [facility] Gross Description A. Large Intestine, Left/Descendi ng Colon, polyp x2: Labeled descending colon polyp x 2 . Received in formalin are eight irregular tidwell mucosal tissue fragments, ranging from less than 0.1 cm to 0.5 cm in greatest dimension, which are wrapped in paper and submitted in toto in two cassettes, four pieces each, multiple levels on each slide. B. Large Intestine, Cecum, polyp x1: Labeled colon cecum polyp x 1 . Received in formalin are multiple irregular tidwell mucosal tissue fragments, ranging from 0.1 cm to 0.5 cm in greatest dimension, which are wrapped in paper and submitted in toto in two cassettes, six pieces and multiple pieces, respectively, multiple levels on each slide. C. Large Intestine, Transverse Colon, polyp x1: Labeled trans colon polyp x 1 . Received in formalin is a 0.3 cm irregular tidwell mucosal tissue fragment which is wrapped in paper and submitted in toto in one cassette, one piece, multiple levels on one slide. D. Large Intestine, Sigmoid Colon, polyp x1: Labeled Sig colon polyp x 1 . Received in formalin is a 1.2 cm irregular tidwell mucosal tissue fragment which is wrapped in paper and submitted in toto in one cassette, one piece, multiple levels on one slide. E. Colon, polyp x1 at 20 cm: Labeled colon polyp x 1 . Received in formalin is a 2.1 x 1.1 x 0.9 cm tidwell-pink to lobular mucosal polyp. The probable resection margin is inked black. The polyp is trisected. Also received in the same container are four additional tidwell mucosal tissue fragments, ranging from less than 0.1 cm to 0.6 cm in greatest dimension. The specimen is wrapped in paper and entirely submitted in two cassettes, with the largest polyp in cassette one, three pieces and four pieces, respectively, multiple levels on each slide. SIRI 05/24/2025 1:06 PM EDT [facility] Disclaimer Unless otherwise specified, all tissue is 10% NB formalin fixed and paraffin embedded. 05/24/2025 1:06 PM EDT [facility] Tissue Descending colon structure / Unknown 05/23/2025 8:31 AM EDT 05/23/2025 10:21 AM EDT Tissue specimen (specimen) Cecum structure / Unknown 05/23/2025 8:39 AM EDT 05/23/2025 10:21 AM EDT Tissue specimen (specimen) Transverse colon structure / Unknown 05/23/2025 8:40 AM EDT 05/23/2025 10:21 AM EDT Tissue specimen (specimen) Sigmoid colon structure / Unknown 05/23/2025 8:41 AM EDT 05/23/2025 10:21 AM EDT Tissue specimen (specimen) Colon structure / Unknown 05/23/2025 8:44 AM EDT 05/23/2025 10:21 AM EDT Winston Linares MD LAB PATHOLOGY ORDERABLES Fi nal Result [facility] [address] [place] [address], [place] [phone] * Microalbumin creatinine urine ratio (05/02/2025 2:52 PM EDT) Creatinine, Urine 63.0 mg/dL LAB CHEMISTRY METHOD 05/02/2025 5:35 PM EDT [facility] Microalb, Ur 9.9 0.0 - 29.0 mg/L LAB CHEMISTRY METHOD 05/02/2025 5:35 PM EDT [facility] Microalb/Creat Ratio 16 <30 mg/g creat LAB CHEMISTRY METHOD 05/02/2025 5:35 PM EDT [facility] Urine Urine specimen obtained by clean catch procedure / Unknown Non-blood Collection / Unknown 05/02/2025 2:52 PM EDT 05/02/2025 2:52 PM EDT Rachel Schreiber MD LAB URINE ORDERABLES Final Resul t Performing Organization Address [facility]/ZIP Co de Phone Number [facility] [address] [place] [address], [place] [phone] * (ABNORMAL) Hemoglobin A1c (05/02/2025 2:52 PM EDT) Pathologist [facility] Hemoglobin A1C 7.3(H) <6.5 % LAB CHEMISTRY METHOD 05/02/2025 9:16 PM EDT [facility] Mean Bld Glu Estim. 163 mg/dL LAB CHEMISTRY METHOD 05/02/2025 9:16 PM EDT [facility] Blood Venous blood specimen / Unknown Venipuncture / Unknown 05/02/2025 2:52 PM EDT 05/02/2025 2:52 PM EDT Rachel Schreiber MD LAB BLOOD ORDERABLES Final Resul t Performing Organization Address [facility] Co de Phone Number [facility] [address] [place] [address], [place] [phone] * (ABNORMAL) Lipid panel with reflex to direct LDL (03/14/2025 9:52 AM EDT) [facility] Cholesterol 177 0 - 200 mg/dL LAB CHEMISTRY METHOD 03/14/2025 2:40 PM EDT [facility] Triglycerides 184(H) 0 - 150 mg/dL LAB CHEMISTRY METHOD 03/14/2025 2:40 PM EDT [facility] HDL 49 >=40 mg/dL LAB CHEMISTRY METHOD 03/14/2025 2:40 PM EDT [facility] LDL Calculated 91 0 - 100 mg/dL LAB CHEMISTRY METHOD 03/14/2025 2:40 PM EDT [facility] VLDL Cholesterol Ruben 36.8 mg/dL LAB CHEMISTRY METHOD 03/14/2025 2:40 PM EDT [facility] Non HDL Chol. (LDL+VLDL) 128 <145 mg/dL LAB CHEMISTRY METHOD 03/14/2025 2:40 PM [facility] Chol/HDL Ratio 3.6 0.0 - 4.4 LAB CHEMISTRY METHOD 03/14/2025 2:40 PM [facility] Blood Venous blood specimen / Unknown Venipuncture / Unknown 03/14/2025 9:52 AM EDT 03/14/2025 9:52 AM EDT us Rachel Schreiber MD LAB BLOOD ORDERABLES Final Resul t [facility] [address] [place] [address], [place] [phone] * (ABNORMAL) Comprehensive metabolic panel (03/14/2025 9:52 AM EDT) Sodium 141 133 - 145 mmol/L LAB CHEMISTRY METHOD 03/14/2025 2:40 PM [facility] Potassium 4.4 3.5 - 5.5 mmol/L LAB CHEMISTRY METHOD 03/14/2025 2:40 PM [facility] Chloride 106 96 - 110 mmol/L LAB CHEMISTRY METHOD 03/14/2025 2:40 PM [facility] CO2 24 21 - 32 mmol/L LAB CHEMISTRY METHOD 03/14/2025 2:40 PM [facility] Anion Gap 11 3 - 11 LAB CHEMISTRY METHOD 03/14/2025 2:40 PM [facility] Glucose 132(H) 70 - 100 mg/dL LAB CHEMISTRY METHOD 03/14/2025 2:40 PM [facility] BUN 11 5 - 25 mg/dL LAB CHEMISTRY METHOD 03/14/2025 2:40 PM [facility] Creatinine 0.70 0.50 - 1.10 mg/dL LAB CHEMISTRY METHOD 03/14/2025 2:40 PM [facility] eGFR 97 >=60 mL/min/1. 73m2 LAB CHEMISTRY METHOD 03/14/2025 2:40 PM EDT [facility] Comment:Calculation based on the Chronic Kidney Disease Epidemiology Collaboration (CKD-EPI) equation refit without adjustment for race. BUN/Creatinine Ratio 15.7 LAB CHEMISTRY METHOD 03/14/2025 2:40 PM EDT [facility] Calcium 9.3 8.5 - 10.5 mg/dL LAB CHEMISTRY METHOD 03/14/2025 2:40 PM EDT [facility] AST (SGOT) 23 10 - 42 unit/L LAB CHEMISTRY METHOD 03/14/2025 2:40 PM EDT [facility] ALT (SGPT) 31 10 - 60 unit/L LAB CHEMISTRY METHOD 03/14/2025 2:40 PM EDT [facility] Alkaline Phosphatase 52 42 - 121 unit/L LAB CHEMISTRY METHOD 03/14/2025 2:40 PM EDT [facility] Total Protein 7.1 6.0 - 8.0 g/dL LAB CHEMISTRY METHOD 03/14/2025 2:40 PM EDT [facility] Albumin 3.9 3.2 - 5.0 g/dL LAB CHEMISTRY METHOD 03/14/2025 2:40 PM [facility] Total Bilirubin 0.4 0.0 - 1.4 mg/dL LAB CHEMISTRY METHOD 03/14/2025 2:40 PM EDT [facility] Blood Venous blood specimen / Unknown Venipuncture / Unknown 03/14/2025 9:52 AM EDT 03/14/2025 9:52 AM EDT us Patrick IBARRA LAB BLOOD ORDERABLES Final Res ult [facility] [address] [place] [address], * External Mammogram Report (10/14/2024) Anatomical Region Laterality Modality Mammography us Provider [facility] BI PROCEDURES Final Result * Cervical Cancer Screening: HPV (01/14/2024) Pathologist [facility] Cervical Cancer Screening: HPV abstracted, negative Historical Provider HEALTH MAINTENANCE Final Result * Hepatitis C Screening (03/04/2014) Pathologist [facility] Hepatitis C Screening abstracted Historical Provider HEALTH MAINTENANCE Final Result from Last 3 Months or Most Recently Relevant to Health Maintenance Insurance [facility] Care Teams Commercial Credit Officer Relationship Specialty Start Date End Date Tamia Garcia MD [address] [place] [phone] PCP - General Internal Medicine 07/11/22
--- OUTSIDE RECORDS SUMMARY | 2025-08-16 20:37 | XMS_ITS | Clinical Summary ---
Author Organization [facility] Address [address] [place] [id number] Phone Care Team Providers Care Log Cut Off Sawyer Name Role Phone Tamia Garcia MD Primary Care Provider [phone] Allergies Active Allergy Reactions Criticality Noted Date Comments Glipizide 07/05/2019 GI upset Levofloxacin Diarrhea,GI Upset 11/16/2020 Other reaction(s): joint pain, Myalgia and Joint Pain, tendon problems, trouble breathing Morphine Medium 08/26/2016 Other reaction(s): Morphine allergy, rash, hives, anxiety, Rash/Dermatitis, Unknown Oxycodone Anxiety,Hives,Itchi ng,Rash Low 11/30/2019 Other reaction(s): rash, hives, anxiety Penicillins Diarrhea,Hives,Itch ing,Shortness Of Breath High 02/23/2015 Other reaction(s): Rash/Dermatitis Sulfa (Sulfonamide Antibiotics) Anaphylaxis,Hives,S hortness Of Breath High 08/29/2023 Other reaction(s): Hives, Breathing Difficulty, rash, hives, respiratory distress Medications albuterol 90 mcg/actuation inhaler Inhale 2 puffs into the lungs continuous prn. Active amitriptyline (ELAVIL) 25 MG tablet Take 1 tablet by mouth nightly at bedtime. 3 Active apixaban (ELIQUIS) 5 mg tablet Take 1 tablet by mouth 2 (two) times a day. 3 Active arformoterol (BROVANA) 15 mcg/2 mL Nebu Inhale 15 mcg into the lungs 2 (two) times a day. Active aspirin 81 MG EC tablet Take 1 tablet by mouth every morning. 3 Active atorvastatin (LIPITOR) 40 MG tablet 1 tablet Orally Once a day for 30 day(s) Active doxycycline hyclate (VIBRAMYCIN) 100 MG capsule Take 100 mg by mouth 2 (two) times a day. 3 Active DEXCOM G7 SENSOR Emily CHANGE SENSOR EVERY 10 DAYS 3 Active budesonide (PULMICORT) 0.5 mg/2 mL nebulizer solution 2 ml Inhalation Once a day Active cetirizine (ZYRTEC) 10 MG tablet Take 10 mg by mouth 2 (two) times a day. Active diclofenac sodium (VOLTAREN) 1 % Gel Place onto the skin. Active dilTIAZem (CARDIZEM) 30 MG immediate release tablet Take 1 tablet by mouth as needed. Active diphenoxylate-at ropine (LOMOTIL) 2.5-0.025 mg per tablet Take 1 tablet by mouth. 3 Active empagliflozin (JARDIANCE) 25 mg tablet Active ergocalciferol 50 mcg (2,000 unit) Tab Take by mouth. Activ e TRESIBA FLEXTOUCH U-100 injection pen INJECT 10 UNITS INTO THE SKIN DAILY 3 Active insulin lispro (HUMALOG KWIKPEN INSULIN SUBQ) Active levothyroxine (SYNTHROID, LEVOTHROID) 112 MCG tablet Take 1 tablet by mouth every morning. 3 Active lisinopril (PRINIVIL,ZESTRI L) 10 MG tablet Take 1 tablet by mouth every morning. 3 Active metFORMIN (GLUCOPHAGE) 1000 MG tablet Activ e montelukast (SINGULAIR) 10 mg tablet Take 1 tablet by mouth every morning. 3 Active omalizumab (XOLAIR) 150 mg subcutaneous injection Subcutaneous Active omalizumab (XOLAIR) 75 mg/0.5 mL subcutaneous injection Active omeprazole (PRILOSEC) 20 mg TbEC Take 1 tablet by mouth. Active BD ULTRA-FINE MINI PEN NEEDLE 31 gauge x 3/16 Ndle USE WITH INSULIN PENS 3 TIMES DAILY 3 Active pyridoxine, vitamin B6, (B-6) 100 MG tablet Take 1 tablet by mouth every morning. 3 Active rosuvastatin (CRESTOR) 40 MG tablet Take 1 tablet by mouth every morning. 3 Active roflumilast (DALIRESP) 500 mcg Tab Take 1 tablet by mouth every morning. 3 Active tiotropium bromide (SPIRIVA RESPIMAT) 2.5 mcg/actuation mist for inhalation Active zolpidem (AMBIEN) 5 MG tablet Take by mouth. Activ e traMADoL (ULTRAM) 50 mg tablet Take 1-2 tablets (50-100 mg total) by mouth every 6 (six) hours as needed for pain (specific location in comments). 20 tablet 3 Active Family History Medical History Relation Comments Anesthesia problems Mother hair loss of surgery Relation Status Comments Mother Social History Tobacco Use Types Packs/Day Years [...] Orientation Straight 05/19/2023 10 :23 AM EDT Last Filed Vital Signs Vital Sign Reading Time Taken Comments Blood Pressure 127/60 09/15/2023 11:40 AM EST Pulse 99 09/15/2023 11:40 AM EST Temperature 36 C (96.8 F) 09/15/2023 11:06 AM EST Respiratory Rate 18 09/15/2023 11:40 AM EST Oxygen Saturation 94% 09/15/2023 11:40 AM EST Inhaled Oxygen Concentration - - Weight 93.9 kg (207 lb) 09/15/2023 6:45 AM EST Height 165.1 cm (5' 5 ) 09/15/2023 6:45 AM EST Body Mass Index 34.45 09/15/2023 6:45 AM EST Plan of Treatment Health Maintenance Due Date Last Done Comments POTASSIUM LEVEL 1962 TSH LEVEL 1962 DEPRESSION SCREENING 1974 HEPATITIS C SCREENING 01/10/1980 HIV ONE-TIME SCREENING (18-6 5 YEARS) 01/10/1980 PAP SMEAR 1983 SCREENING FOR DIABETES 1997 MAMMOGRAM 2002 COLOGUARD 2007 COLONOSCOPY 2007 COLORECTAL CANCER SCREENING 2007 FIT TEST 2007 FOBT 2007 SIGMOIDOSCOPY 2007 VIRTUAL COLONOSCOPY 2007 PNEUMOCOCCAL VACCINES (50+ years) (1 of 1 - PCV) 01/10/2012 RSV VACCINE (1 - Risk 50-74 years 1-dose series) 01/10/2012 ZOSTER VACCINES (1 of 2) 01/10/2012 Adult Td,Tdap Booster 01/26/2024 01/25/2014 CREATININE LEVEL 11/03/2024 11/03/2023 INFLUENZA VACCINE (#1) 2025 COVID-19 VACCINE (1 - 2024-2 6 season) 2025 LIPID PANEL 11/03/2028 11/03/2023, 06/02/2023 SMOKING STATUS SCREENING (On ce After 26 Yrs) Completed 09/15/2023 HEPATITIS A VACCINES Aged Out No long er eligible based on patient's age to complete this topic HIB VACCINES Aged Out No longer eligi ble based on patient's age to complete this topic MENINGOCOCCAL VACCINES (ACWY) Aged Out No longer eligible based on patient's age to complete this topic MENINGOCOCCAL VACCINES (B) Aged Out N o longer eligible based on patient's age to complete this topic Medical Devices Implanted Type Area Assistant Manager Quality Management Device Identifier Shelf Expiration Date Model / Serial / Lot R Eye L Achilles Graft Description:2006 Insurance [employer] PLUS PPO [employer] PLUS PPO [employer] PLUS PPO [employer] PLUS PPO [employer] PLUS PPO [employer] PLUS PPO [facility] PLUS PPO WORKERS COMPENSATION [employer] Care Teams Log Cut Off Sawyer Relationship Specialty Start Date End Date Tamia Garcia MD [address] [place] [id number] PCP - General Internal Medicine 05/19/23 Additional Source Comments The information contained in this document represents components of the legal health record. It is not the complete legal health record.[facility]
== END 2025-08-16 16:21 | disposition home or self-care (01) ==
LOC: HO.HPS 15:34
PROVIDERS: PCP Internal Medicine; Visit Provider Hospitalist
DX: G47.33 Obstructive sleep apnea (adult) (pediatric) (principal); Z99.89 Dependence on other enabling machines and devices; J45.909 Unspecified asthma, uncomplicated; F51.01 Primary insomnia; J44.9 Chronic obstructive pulmonary disease, unspecified; J98.11 Atelectasis; R40.0 Somnolence
CPT/HCPCS: 99214